=== PATIENT | female | born 1950 | race Caucasian/White ===

== ENCOUNTER → 2019-06-13 | Outpatient (CLI) | payer BC ==
[2019-06-13 15:28] LABS: Basophils % (A) 1 %; Eosinophils # (A) 0.2 k/uL (0-0.7); Eosinophils % (A) 3 %; HCT 41.5 % (34.0-46.0); HGB 12.9 gm/dL (11.4-16.0); Lymphocytes # (A) 1.5 k/uL (1.0-4.8); Lymphocytes % (A) 27 %; MCH 27.3 pg (25.0-35.0); MCHC 31.2 g/dL (31.0-37.0); MCV 87.7 fL (80.0-100.0); Mean Platelet Volume 7.9; Monocytes # (A) 0.2 k/uL (0-1.0); Monocytes % (A) 4 %; Neutrophils # (A) 3.7 k/uL (1.3-7.7); Neutrophils % (A) 64 %; Platelet Count 253 k/uL (150-450); RBC 4.73 m/uL (3.80-5.40); RDW 14.7 % (11.5-15.5); WBC 5.8 k/uL (3.8-10.6)
[2019-06-13 15:36] LABS: Albumin 4.3 g/dL (3.5-5.0); Calcium 9.8 mg/dL (8.4-10.2); Potassium 5.3 mmol/L (3.5-5.1); Total Bilirubin 0.6 mg/dL (0.2-1.3)
== END | disposition home or self-care (01) ==
LOC: LABPAT 14:35
PROVIDERS: ATTEND Surgery
DX: Z01.818 Encounter for other preprocedural examination (principal); Z01.812 Encounter for preprocedural laboratory examination
CPT/HCPCS: 80053; 85025; 93005

== ENCOUNTER → 2019-06-13 | Outpatient (CLI) | payer BC ==
[2019-06-13 16:21] VITALS: BP 166/103; PULSE 81; TEMP 98.1; BMI 27.1
--- NOTE | 2019-06-14 09:05 | P.HPBAR ---
Bariatric H&P - History & Physicial H&P Date: 06/13/19 History & Physicial: Visit/CC: discuss band removal Patient initial contact: Initial weight: 139.253 kg Initial weight in pounds: 307.00 Height: 5 ft 3 in Initial BMI: 54.3 Last weight: Current weight: 69.4 kg Current weight in pounds: 153.00 Current BMI: 27.1 [place] body weight (based on NIH guidelines): 52.163 kg Excess body weight loss: 80.2% The patient is a 68 year-old F who presents for Bariatric Assessment. This is a 68-year-old female who presents today for lab band follow. She's not been seen in 5 years. She's had complaints of some vague abdominal pain and constipation. She underwent EGD by Dr. Castillo in [place]. Patient's found have evidence of gastric band erosion. Patient denies any significant dysphagia. She states she's had [id number]-kud last several months. She denies any significant epigastric abdominal pain today. Past Medical History Past Medical History: Cancer, Osteoarthritis (OA) Additional Past Medical History / Comment(s): Right breast cancer (had mastectomy and chemotherapy Tamoxifen). Osteoporosis. Stenosis of neck and back History of Any Multi-Drug Resistant Organisms: None Reported Past Surgical History: Bariatric Surgery, Orthopedic Surgery Additional Past Surgical History / Comment(s): Lap band placed 2006,. Bilateral knee replacement. Right mastectomy Past Anesthesia/Blood Transfusion Reactions: Postoperative Nausea & Vomiting (PONV) Additional Past Anesthesia/Blood Transfusion Reaction / Comm: has had a reaction to blood transfusion, hives (needed benadryl) Smoking Status: Never smoker Surgical - Exam Vital Signs Temp Pulse BP 98.1 F 81 166/103 06/13/19 15:00 06/13/19 15:00 06/13/19 15:00 - General well developed, well nourished, no distress - Eyes PERRL - ENT normal pinna - Neck no masses - Respiratory normal expansion - Cardiovascular Rhythm: regular - Abdomen Abdomen: soft, non tender Bariatric Assessment & Plan Plan: Lap band erosion. Patient will undergo laparoscopic removal of LAP-BAND system. I discussed the patient the risk of adhesions and the possibility of conversion to the open procedure and injury to the stomach liver or spleen. Bariatric Checklist Checklist: Plan: Checklist: EGD: 1. Hiatal hernia: 2. H. Pylori: HgbA1c: Vitamin D: Smoking: Never smoker Primary care physician referral: Psychiatry clearance: Cardiology clearance: Sleep study: Diet journal: VTE risk score: VTE risk level: Rehab needs at discharge:
== END | disposition home or self-care (01) ==
LOC: BARWHC3 13:37
PROVIDERS: ATTEND Surgery
DX: K95.09 Other complications of gastric band procedure (principal)
CPT/HCPCS: 99211

== ENCOUNTER 2019-06-15 09:15 | Inpatient (IN) | payer BC ==
[2019-06-15] MEDS ORDERED: LACTATED RINGERS 1,000 ML IV ONE ×2 (13:23→18:07)
[2019-06-15] MEDS ORDERED: ONDANSETRON 4 MG/2 ML VIAL IVP ONE ×2 (13:23→21:25)
--- NOTE | 2019-06-15 13:36 | P.GSHP ---
History of Present Illness H&P Date: 06/15/19 Chief Complaint: Erosion of LAP-BAND This is a 68-year-old female who had LAP-BAND surgery many years ago. Patient up and seen in 5 years. Patient underwent recent EGD by Dr. Castillo at [facility]. Patient's found have erosion of her LAP-BAND. Patient presents today for removal of LAP-BAND system. Patient aware the risks of surgery including conversion to the open procedure and injury to the stomach, liver and spleen. She also aware the risk of possible gastric fistula. Past Medical History Past Medical History: Cancer, Osteoarthritis (OA) Additional Past Medical History / Comment(s): Right breast cancer (had mastectomy and chemotherapy Tamoxifen). Osteoporosis. Stenosis of neck and back History of Any Multi-Drug Resistant Organisms: None Reported Past Surgical History: Bariatric Surgery, Orthopedic Surgery Additional Past Surgical History / Comment(s): Lap band placed 2006,. Bilateral knee replacement. Right mastectomy Past Anesthesia/Blood Transfusion Reactions: Postoperative Nausea & Vomiting (PONV) Additional Past Anesthesia/Blood Transfusion Reaction / Comment(s): has had a reaction to blood transfusion, hives (needed benadryl) Smoking Status: Never smoker Medications and Allergies Home Medications Medication Instructions Recorded Confirmed Type Calcium Carbonate/Vitamin D3 1 each PO TID 06/13/19 06/15/19 History [Calcium 600-Vit D3 500 Softgel] traMADol HCL [Ultram] 50 mg PO Q4-6H PRN 06/13/19 06/15/19 History Allergies Allergy/AdvReac Type Severity Reaction Status Date / Time Penicillins Allergy Unknown Verified 06/15/19 12:36 Childhood Surgical - Exam Vital Signs Temp Pulse Resp BP Pulse Ox 98.4 F 73 16 136/60 100 06/15/19 12:50 06/15/19 12:50 06/15/19 12:50 06/15/19 12:50 06/15/19 12:50 - General well developed, well nourished, no distress - Eyes PERRL - ENT normal pinna - Neck no masses - Respiratory normal expansion - Cardiovascular Rhythm: regular - Abdomen Abdomen: soft, non tender Assessment and Plan Assessment: History of LAP-BAND with gastric erosion of LAP-BAND. Patient will undergo removal of LAP-BAND.
[2019-06-15] MEDS ORDERED: DEXAMETHASONE SOD PHOSPHATE 10 MG/ML 1 ML VIAL IV ONE ×2 (13:43→21:25)
[2019-06-15] MEDS ORDERED: SCOPOLAMINE 1.5MG/72HR PATCH TRANSDERM ONE (13:44)
[2019-06-15] MEDS ORDERED: HYDROmorphone 1 MG/ML 1 ML SYRINGE IVP ONE (14:06)
[2019-06-15] MEDS ORDERED: HEPARIN SODIUM,PORCINE 5,000 UNIT/ML 1 ML VIAL SQ ONE (14:40)
[2019-06-15] MEDS ORDERED: HYDROmorphone (PF) 1 MG/ML ONE (16:32)
[2019-06-15] MEDS ORDERED: ONDANSETRON 4 MG/2 ML VIAL ONE (16:32)
[2019-06-15] MEDS ORDERED: NEOSTIGMINE 1 MG/ML 10 ML VIAL ONE (16:32)
[2019-06-15] MEDS ORDERED: MIDAZOLAM 2 MG/2 ML VIAL ONE (16:32)
[2019-06-15] MEDS ORDERED: GLYCOPYRROLATE 0.2 MG/ML 2 ML VIAL ONE (16:32)
[2019-06-15] MEDS ORDERED: SUCCINYLCHOLINE CHLORIDE 100 MG/5 ML SYR IV ONE (16:32)
[2019-06-15] MEDS ORDERED: ROCURONIUM BROMIDE 10 MG/ML 10 ML VIAL IV ONE (16:32)
[2019-06-15] MEDS ORDERED: LIDOCAINE 1% INJ 10MG/ML (20 ML MDV) ONE (16:32)
[2019-06-15] MEDS ORDERED: fentaNYL (PF) 50 MCG/ML 2 ML AMP ONE (16:32)
[2019-06-15] MEDS ORDERED: KETOROLAC 30 MG/ML 1 ML VIAL ONE (16:32)
[2019-06-15] MEDS ORDERED: PROPOFOL 10 MG/ML 20 ML VIAL IV ONE (16:32)
[2019-06-15] MEDS ORDERED: BUPIVACAIN-EPI 0.25%-1:200,000 30 ML VIAL SQ ONE (17:21)
[2019-06-15] MEDS ORDERED: NALOXONE 0.4 MG/ML 1 ML VIAL IV PRN (18:07)
[2019-06-15] MEDS ORDERED: ONDANSETRON 4 MG/2 ML VIAL IVP PRN (18:07)
--- NOTE | 2019-06-15 18:24 | P.OP ---
Date of Procedure: 06/15/19 Preoperative Diagnosis: Gastric band erosion Postoperative Diagnosis: Gastric band erosions Adhesions Procedure(s) Performed: Laparoscopic lysis of adhesions Open removal of gastric band Gastrorrhaphy Anesthesia: CHRISTINE Surgeon: Brian Gore Estimated Blood Loss (ml): 50 Pathology: none sent Condition: stable Disposition: PACU Description of Procedure: The patient's placed on the operating table in supine position. She received general anesthesia. She was then placed in dorsal 5 position. Her abdomen was prepped and draped usual sterile fashion. The skin was incised at the port site and then using blunt and sharp dissection with cautery the LAP-BAND port was dissected free. At this point using a 5 mm optical trocar. Cavity is entered at the LAP-BAND port site the abdomen was insufflated and then a 5 mm trochars placed in the epigastric position the right lateral position the left lateral position and the left periumbilical position. The camera was replaced to the left epigastric port site there were significant adhesions around the stomach. These were lysed using sharp dissection and left cautery. The connecting tube was found in the right lower quadrant. There was adhesive band around the PEG tube and this was attached to the transverse colon. At this point decided to convert this procedure to an open procedure. The trochars withdrawn. The skin was incised in midline and then using cautery the abdominal wall was divided. The Bookwalter placed a wound. The PEG tube was then found. The adhesions located were then lysed. The defect was then followed back to the stomach. At this point using left cautery the dissection around the band was performed. The LAP-BAND device appeared to be eroded entirely into the stomach. The area of erosion was opened with left cautery. LAP-BAND device was withdrawn. The stomach was then repaired using 0 Vicryl suture and 3-0 GI silk suture. The stomach was insufflated with 5 mL of methylene blue normal saline. There is no incision any leak at the gastric repair site. At this point the abdomen was irrigated. There is no bleeding seen. The drain was placed over top of the gastrorrhaphy and brought through separate stab incision in the right lower quadrant. The fascia is closed with looped #1 PDS suture. Skin was closed josie. The previous once this was placed on the stapled incision. Patient was sent to recovery room stable condition.
[2019-06-15] MEDS: HYDROmorphone 1 MG/ML 1 ML SYRINGE IVP ONE ×2 (18:38→18:50)
[2019-06-15] MEDS: fentaNYL (PF) 50 MCG/ML 2 ML AMP IVP ONE ×4 (18:55→19:29)
[2019-06-15] MEDS ORDERED: MIDAZOLAM 2 MG/2 ML VIAL IV PRN (21:25)
[2019-06-15] MEDS ORDERED: HYDROmorphone 0.5 MG/0.5 ML SYRINGE IVP PRN (21:25)
[2019-06-15] MEDS ORDERED: LIDOCAINE 1% 20 ML VIAL (10MG/ML) FOR IV START INTRADERMA PRN (21:25)
[2019-06-15] MEDS ORDERED: fentaNYL (PF) 50 MCG/ML 2 ML AMP IV PRN (21:25)
[2019-06-15] MEDS: KETOROLAC 30 MG/ML 1 ML VIAL IVP SCH ×2 (21:28→23:08)
[2019-06-15] MEDS: FLUCONAZOLE IN NACL,ISO-OSM 200 MG in SALINE 1 100ML.BAG IVPB SCH ×2 (21:28→21:35)
[2019-06-15] MEDS: LACTATED RINGERS 1,000 ML IV SCH ×2 (21:34→21:35)
[2019-06-15] MEDS ORDERED: LEVOFLOXACIN 500MG-D5W PMX 500 MG in DEXTROSE/WATER 1 100ML.BAG IVPB SCH (23:00)
[2019-06-15] MEDS: HYDROmorphone 0.5 MG/0.5 ML SYRINGE IVP PRN (23:47)
[2019-06-16] MEDS: HYDROmorphone 0.5 MG/0.5 ML SYRINGE IVP PRN ×4 (05:19→21:46)
[2019-06-16] MEDS: KETOROLAC 30 MG/ML 1 ML VIAL IVP SCH ×3 (05:20→17:10)
[2019-06-16] MEDS: LACTATED RINGERS 1,000 ML IV SCH ×3 (05:22→21:50)
[2019-06-16 09:00] LABS: Albumin 2.5 g/dL (3.5-5.0); Calcium 8.4 mg/dL (8.4-10.2); Potassium 4.6 mmol/L (3.5-5.1); Total Bilirubin 0.6 mg/dL (0.2-1.3); Total Protein 4.7 g/dL (6.3-8.2)
[2019-06-16 09:21] LABS: Basophils % (A) 0 %; Eosinophils % (A) 0 %; HCT 27.5 % (34.0-46.0); Lymphocytes # (A) 0.6 k/uL (1.0-4.8); Lymphocytes % (A) 7 %; MCH 29.1 pg (25.0-35.0); MCHC 32.4 g/dL (31.0-37.0); MCV 89.9 fL (80.0-100.0); Mean Platelet Volume 8.3; Monocytes # (A) 0.3 k/uL (0-1.0); Monocytes % (A) 3 %; Neutrophils # (A) 7.6 k/uL (1.3-7.7); Neutrophils % (A) 89 %; Platelet Count 201 k/uL (150-450); RBC 3.05 m/uL (3.80-5.40); RDW 15.3 % (11.5-15.5); WBC 8.6 k/uL (3.8-10.6)
[2019-06-16 09:27] LABS: HGB 8.9 gm/dL (11.4-16.0)
[2019-06-16] MEDS: ENOXAPARIN 40 MG/0.4 ML SYRINGE SQ SCH (10:27)
[2019-06-16] MEDS: PANTOPRAZOLE 40 MG/10 ML VIAL IV SCH (10:28)
[2019-06-16] MEDS ORDERED: SODIUM CHLORIDE 0.9% 1,000 ML IV ONE (13:23)
--- NOTE | 2019-06-16 13:47 | P.PN ---
Subjective Progress Note Date: 06/16/19 CHIEF COMPLAINT: gastric band erosion HISTORY OF PRESENT ILLNESS: patient is status post laparoscopic lysis of adhesions, open removal of gastric band, and gastrorrhaphy. POD #1. Patient reports her pain is tolerable. NG to LIS with bilious drainage. Denies nausea. WBC 8.6. Hemoglobin 8.9. vital signs stable. Patient is afebrile. PHYSICAL EXAM: VITAL SIGNS: Reviewed. GENERAL: Well-developed in no acute distress. HEENT: No sclera icterus. Extraocular movements grossly intact. Moist buccal mucosa. Head is atraumatic, normocephalic. ABDOMEN: Soft. Nondistended. PREVENA wound system to midline incision. MELISSA drain with serosanguineous drainage NEUROLOGIC: Alert and oriented. Cranial nerves II through XII grossly intact. ASSESSMENT: 1. Gastric band erosion, status post laparoscopic lysis of adhesions, open removal of gastric band, and gastrorrhaphy PLAN: 1. Continue NG to LIS. Continue NPO. Continue IV fluids. 1L fluid bolus for decreased urine output. 2. Patient to have esophagram completed Thursday morning to rule out leak. If negative, may begin clear liquid diet at that time 3. Pain control 4. Activity as tolerated 5. Incentive spirometry 6. Dr. Wolf consulted for further evaluation Nurse practitioner note has been reviewed by physician. Signing provider agrees with the documented findings, assessment, and plan of care. Objective - Vital Signs Vital signs: Vital Signs Temp 98.5 F 06/16/19 07:16 Pulse 76 06/16/19 07:16 Resp 15 06/16/19 07:16 BP 103/55 06/16/19 07:16 Pulse Ox 97 06/16/19 07:16 Intake & Output 06/15/19 06/16/19 06/16/19 18:59 06:59 18:59 Intake Total 1350 1500 Output Total 30 560 20 Balance 1320 940 -20 Weight 81.42 kg Intake: IV 1350 Intake, IV Titration 1500 Amount Lactated Ringers 1,000 ml 1500 @ 125 mls/hr IV .Q8H [facility] Rx#:[id number] Output: Drainage 160 20 Right Abdomen 160 20 Urine 400 Straight 400 Estimated Blood Loss 30 - Labs CBC & Chem 7: 06/16/19 08:17 06/16/19 08:17 Labs: Abnormal Lab Results - Last 24 Hours (Table) 06/16/19 06/16/19 Range/Units 08:17 08:17 RBC 3.05 L (3.80-5.40) m/uL Hgb 8.9 L D (11.4-16.0) gm/dL Hct 27.5 L (34.0-46.0) % Lymphocytes # 0.6 L (1.0-4.8) k/uL Chloride 108 H (98-107) mmol/L BUN 22 H (7-17) mg/dL Glucose 127 H (74-99) mg/dL AST 43 H (14-36) U/L Total Protein 4.7 L (6.3-8.2) g/dL Albumin 2.5 L (3.5-5.0) g/dL
[2019-06-16] MEDS ORDERED: BENZOCAINE SPRAY 1 CAN MUCOUS MEM PRN (14:21)
[2019-06-16] MEDS: metroNIDAZOLE-NS PMX 500 MG in SALINE 1 100ML.BAG IVPB SCH (18:38)
[2019-06-16] MEDS: FLUCONAZOLE IN NACL,ISO-OSM 200 MG in SALINE 1 100ML.BAG IVPB SCH (21:47)
--- NOTE | 2019-06-16 23:16 | CONS ---
CONSULTATION DATE OF SERVICE: 06/16/2019 REASON FOR CONSULTATION: Advice regarding DVT and other multiple medical issues requested by Dr. Gore. HISTORY OF PRESENT ILLNESS: This 68-year-old woman with a past medical history of DVT, history of DJD, history of right breast cancer, had lap band placement in [address] Gore. The EGD done in [place] showed some gastric lap band erosion and the patient underwent laparoscopic lysis of adhesions, open removal of gastric band and by Dr. Gore. The patient is being closely monitored. There is no history of chest pain. No palpitations. No headache, loss of consciousness or seizures, nausea and diarrhea at this time. PAST MEDICAL HISTORY: DVT, history of DJD, history of right breast cancer, osteoporosis, history of bariatric surgery, history of DJD. MEDICATIONS: Prior to admission, home medications are: 1. Ultram 50 mg q.4 p.r.n. 2. Calcium carbonate 1 p.o. t.i.d. ALLERGIES: PENICILLIN. FAMILY HISTORY: No history of heart disease or strokes in the family. SOCIAL HISTORY: No history of smoking. No history of alcohol intake. REVIEW OF SYSTEMS: ENT: No diminished hearing. No diminished vision. CARDIOVASCULAR: No angina or palpitations. RESPIRATORY: As mentioned earlier. GI as mentioned earlier. no dysuria or hematuria. NERVOUS SYSTEM: No numbness or weakness. ALLERGY/IMMUNOLOGY: No history of asthma or hayfever. MUSCULOSKELETAL: As mentioned earlier. HEMATOLOGY/ONCOLOGY: No history of anemia. ENDOCRINE: No history of diabetes or hypothyroidism. CONSTITUTIONAL: As mentioned earlier. DERMATOLOGY: Negative. RHEUMATOLOGY: Negative. PSYCHIATRIC: As mentioned earlier. PHYSICAL EXAM: Patient is alert and oriented times three. Pulse 88, blood pressure 105/60, respirations 20, temperature 98.1, pulse ox 97% on room air. HEENT: Conjunctivae normal. Oral mucosa moist. NECK is no jugular venous distention. No carotid bruit. No lymph node enlargement. CARDIOVASCULAR: S1, S2 muffled. RESPIRATIONS: Breath sounds diminished in the bases. No rhonchi. No crackles. ABDOMEN: Soft. Status post surgery. LEGS: No edema. No swelling. NERVOUS SYSTEM: Higher functions as mentioned earlier. Moves all 4 limbs. No focal motor or sensory deficits. LYMPHATICS: No lymph nodes palpable in the neck, axillae or groin. SKIN: No ulcer, no rashes and no bleeding. JOINTS: No active deforming arthropathy. LABS: WBC 8.6, hemoglobin is 8.9, sodium 136, potassium 4.6 and AST is 43. Albumin is 2.5. ASSESSMENT: 1. Status post laparoscopic lysis of adhesions, open removal of gastric band and gastrography for gastric lap band erosions. 2. Anemia, normocytic possibly anemia of chronic disease. 3. History of deep vein thrombosis. 4. History of degenerative joint disease. 5. History of right breast cancer with mastectomy and chemotherapy. 6. History of osteoporosis. 7. Neck and back stenosis. 8. History of deep vein thrombosis. 9. History of bariatric surgery, lap band placement 2006. 10.FULL CODE. RECOMMENDATIONS AND DISCUSSION: This 68-year-old woman presented after surgery. At this time, I recommend to continue current medications, symptomatic treatment. I recommend DVT prophylaxis and I would also recommend repeat labs. Resume the home medications. Incentive spirometry. Proton pump inhibitors. We will follow the patient closely with you. Thank you Dr. Gore for letting us participate in the care of this patient. MMODL / DARRINN: [id number] / MTDD
[2019-06-17] MEDS: metroNIDAZOLE-NS PMX 500 MG in SALINE 1 100ML.BAG IVPB SCH ×4 (00:01→23:16)
[2019-06-17] MEDS: KETOROLAC 30 MG/ML 1 ML VIAL IVP SCH ×4 (00:02→15:42)
[2019-06-17] MEDS: LACTATED RINGERS 1,000 ML IV SCH ×5 (00:02→22:11)
[2019-06-17] MEDS: HYDROmorphone 0.5 MG/0.5 ML SYRINGE IVP PRN ×2 (01:26→04:15)
--- NOTE | 2019-06-17 07:24 | P.CONS ---
History of Present Illness - Reason for Consult Consult date: 06/16/19 Gastric band erosion and antibiotic recommendation Requesting physician: Brian Gore - Chief Complaint Abdominal pain times few weeks - History of Present Illness Patient is a 68-year-old female with past medical history significant for gastric band surgery a few years ago the patient started having a problem with pain mostly in the epigastric area more of a dull aching pain that seems to have gradually increased in intensity to be almost 6-7 out of 10 with no radiation some associated nausea but no vomiting no diarrhea or any fever patient has been evaluated outpatient setting and did have an EGD which she was noticed to have a gastric band erosion subsequently the patient has been referred to Dr. Martinez patient was taken to the OR the patient is status post lysis of adhesion, removal of the gastric band and gastric repair, the patient has been started on Diflucan and Levaquin because of her penicillin ALLERGY which is a childhood reaction infectious disease was consulted for further recommendation regarding antibiotic, the patient is currently afebrile, her white count has been normal, patient to be complaining of mostly post operative pain dull aching to sharp 4-5 out of 10 and no radiation with some improvement with the pain medication has been receiving Review of Systems Positive points has been mentioned in HPI rest of the systems are negative Past Medical History Past Medical History: Cancer, Deep Vein Thrombosis (DVT), Osteoarthritis (OA) Additional Past Medical History / Comment(s): Right breast cancer (had mastectomy and chemotherapy Tamoxifen). Osteoporosis. Stenosis of neck and back. dvt 1989 History of Any Multi-Drug Resistant Organisms: None Reported Past Surgical History: Bariatric Surgery, Orthopedic Surgery Additional Past Surgical History / Comment(s): Lap band placed 2006,. Bilateral knee replacement. Right mastectomy. lap band removal 06/15/2019 Past Anesthesia/Blood Transfusion Reactions: Postoperative Nausea & Vomiting (PONV) Additional Past Anesthesia/Blood Transfusion Reaction / Comm: has had a reaction to blood transfusion, hives (needed benadryl) Past Psychological History: No Psychological Hx Reported Smoking Status: Never smoker Past Alcohol Use History: Rare Past Drug Use History: None Reported Medications and Allergies Home Medications Medication Instructions Recorded Confirmed Type Calcium Carbonate/Vitamin D3 1 cap PO TID 06/13/19 06/15/19 History [Calcium 600-Vit D3 500 Softgel] traMADol HCL [Ultram] 50 mg PO Q4-6H PRN 06/13/19 06/15/19 History Allergies Allergy/AdvReac Type Severity Reaction Status Date / Time Penicillins Allergy Unknown Verified 06/15/19 16:20 Childhood Physical Exam Vitals: Vital Signs Temp Pulse Resp BP Pulse Ox 06/16/19 15:02 98.2 F 78 15 103/73 91 L 06/16/19 07:16 98.5 F 76 15 103/55 97 06/16/19 05:15 82 104/67 96 06/16/19 03:08 18 06/16/19 01:05 98.1 F 88 18 93/59 97 06/15/19 23:38 108/73 06/15/19 23:25 18 06/15/19 23:00 95 16 98/54 99 06/15/19 21:30 67 18 93/59 100 06/15/19 21:15 89 18 97/61 100 06/15/19 21:00 84 18 96/63 100 06/15/19 20:45 84 18 96/61 100 06/15/19 20:30 67 18 100/63 100 06/15/19 20:16 72 18 119/60 06/15/19 20:01 71 18 129/60 06/15/19 19:46 72 18 133/73 96 06/15/19 19:31 61 20 143/64 100 06/15/19 19:15 76 20 128/58 100 06/15/19 19:01 51 L 20 125/58 100 06/15/19 18:45 63 64 H 129/61 100 06/15/19 18:41 63 64 H 136/62 100 06/15/19 18:26 97.6 F 64 64 H 139/63 100 Intake and Output 06/16/19 06/16/19 06/16/19 06:59 14:59 22:59 Intake Total 1125 Output Total 520 110 100 Balance 605 -110 -100 Intake: Intake, IV Titration 1125 Amount Lactated Ringers 1,000 ml 1125 @ 125 mls/hr IV .Q8H [facility] Rx#:[id number] Output: Drainage 120 110 Right Abdomen 120 110 Urine 400 100 Straight 400 Other: Voiding Method Toilet GENERAL DESCRIPTION: An elderly female lying in bed, no distress. No tachypnea or accessory muscle of respiration use. HEENT: Shows Pallor , no scleral icterus. Oral mucous membrane is dry. No pharyngeal erythema or thrush NECK: Trachea central, no thyromegaly. LUNGS: Unlabored breathing. Clear to auscultation anteriorly. No wheeze or crackle. HEART: S1, S2, regular rate and rhythm. No loud murmur ABDOMEN: Soft, mild epigastric tenderness ,no guarding or rigidity, no organomegaly EXTREMITIES: No edema of feet. SKIN: No rash, no masses palpable. NEUROLOGICAL: The patient is awake, alert, oriented x3, mood and affect normal. Results CBC & Chem 7: 06/16/19 08:17 06/16/19 08:17 Labs: Abnormal Lab Results - Last 24 Hours (Table) 06/16/19 06/16/19 Range/Units 08:17 08:17 RBC 3.05 L (3.80-5.40) m/uL Hgb 8.9 L D (11.4-16.0) gm/dL Hct 27.5 L (34.0-46.0) % Lymphocytes # 0.6 L (1.0-4.8) k/uL Chloride 108 H (98-107) mmol/L BUN 22 H (7-17) mg/dL Glucose 127 H (74-99) mg/dL AST 43 H (14-36) U/L Total Protein 4.7 L (6.3-8.2) g/dL Albumin 2.5 L (3.5-5.0) g/dL Assessment and Plan Assessment: 1-patient with gastric band erosion with concern for possible chemical peritonitis from leakage of the gastric content underlying bacterial peritonitis less likely but not entirely excluded in this patient currently with no fever or elevated white count 2-patient with penicillin ALLERGY that will limit the number of antibiotic safety use, however describing the ALLERGY to be childhood and may have taken amoxicillin without any problem clinically doubt true penicillin ALLERGY Plan: 1-discontinue the Levaquin 2-start the patient on Rocephin 2 g daily and IV Flagyl 500 every 8 hours 3-Diflucan 200 mg IV daily we will follow on clinical condition and culture to further adjust medication if needed Thank you for this consultation will follow this patient along with you Time with Patient: Greater than 30
[2019-06-17] MEDS: PANTOPRAZOLE 40 MG/10 ML VIAL IV SCH (07:34)
[2019-06-17] MEDS: ENOXAPARIN 40 MG/0.4 ML SYRINGE SQ SCH (07:35)
[2019-06-17 08:10] LABS: Basophils % (A) 0 %; Eosinophils % (A) 0 %; HCT 21.2 % (34.0-46.0); Hypochromasia Slight; Lymphocytes # (A) 0.5 k/uL (1.0-4.8); Lymphocytes % (A) 11 %; MCH 27.7 pg (25.0-35.0); MCHC 30.8 g/dL (31.0-37.0); MCV 89.7 fL (80.0-100.0); Mean Platelet Volume 7.8; Monocytes # (A) 0.1 k/uL (0-1.0); Monocytes % (A) 3 %; Neutrophils # (A) 3.7 k/uL (1.3-7.7); Neutrophils % (A) 84 %; Platelet Count 127 k/uL (150-450); RBC 2.36 m/uL (3.80-5.40); RDW 15.2 % (11.5-15.5); WBC 4.3 k/uL (3.8-10.6)
[2019-06-17 08:35] LABS: HGB 6.5 gm/dL (11.4-16.0)
[2019-06-17 08:37] LABS: ALT 42 U/L (9-52); AST 23 U/L (14-36); African American GFR (CKD) >90 (>60 ml/min/1.73 sqM); Albumin 1.9 g/dL (3.5-5.0); Alkaline Phosphatase 43 U/L (38-126); Anion Gap 8 mmol/L; Blood Urea Nitrogen 18 mg/dL (7-17); Calcium 7.1 mg/dL (8.4-10.2); Carbon Dioxide 19 mmol/L (22-30); Chloride 113 mmol/L (98-107); Glucose 66 mg/dL (74-99); Potassium 3.5 mmol/L (3.5-5.1); Sodium 140 mmol/L (137-145); Total Bilirubin 0.4 mg/dL (0.2-1.3); Total Protein 3.8 g/dL (6.3-8.2)
[2019-06-17] MEDS: HYDROmorphone 1 MG/ML 1 ML SYRINGE IVP PRN ×4 (08:58→23:16)
--- NOTE | 2019-06-17 12:44 | P.PN ---
<HowardPrema Foster - Last Filed: 06/17/19 12:40> Subjective Progress Note Date: 06/17/19 CHIEF COMPLAINT: gastric band erosion HISTORY OF PRESENT ILLNESS: Patient is status post laparoscopic lysis of adhesions, open removal of gastric band, and gastrorrhaphy. POD #2. Patient repo rts mildly increased abdominal pain this morning. NG to LIS with bilious drainage. Denies nausea. vital signs stable. Patient is afebrile. Hemoglobin 6.5, down from 8.9 yesterday. Nursing reports 300cc drainage overnight from MELISSA. PHYSICAL EXAM: VITAL SIGNS: Reviewed. GENERAL: Well-developed in no acute distress. HEENT: No sclera icterus. Extraocular movements grossly intact. Moist buccal mucosa. Head is atraumatic, normocephalic. ABDOMEN: Soft. Nondistended. PREVENA wound system to midline incision. MELISSA drain with sanguineous drainage NEUROLOGIC: Alert and oriented. Cranial nerves II through XII grossly intact. ASSESSMENT: 1. Gastric band erosion, status post laparoscopic lysis of adhesions, open removal of gastric band, and gastrorrhaphy 2. Acute blood loss anemia, an unexpected but potential outcome of surgery PLAN: 1. Continue NG to LIS. Continue NPO. 2. Patient to have esophagram completed Thursday morning to rule out leak. If negative, may begin clear liquid diet at that time 3. Pain control. Increase Dilaudid to 1mg 4. Activity as tolerated 5. Incentive spirometry 6. Dr. Wolf consulted for further evaluation 7. Monitor MELISSA drain output 8. 1 unit RBC transfusion. daily hemoglobin 9. Discontinue Lovenox. SCDs for DVT prophylaxis Nurse practitioner note has been reviewed by physician. Signing provider agrees with the documented findings, assessment, and plan of care. Objective - Vital Signs Vital signs: Vital Signs Temp 98.6 F 06/17/19 08:02 Pulse 86 06/17/19 08:02 Resp 16 06/17/19 08:02 BP 118/71 06/17/19 08:02 Pulse Ox 96 06/17/19 08:02 Intake & Output 06/16/19 06/17/19 06/17/19 18:59 06:59 18:59 Intake Total 1800 Output Total 280 230 80 Balance -280 1570 -80 Intake: Intake, IV Titration 1800 Amount Fluconazole in NaCl,Iso- 100 Osm 200 mg In Saline 1 100ml.bag @ 100 mls/hr IVPB Q24H [facility] Rx#: [id number] Lactated Ringers 1,000 ml 1500 @ 125 mls/hr IV .Q8H [facility] Rx#:[id number] metroNIDAZOLE-NS PMX 500 200 mg In Saline 1 100ml.bag @ 100 mls/hr IVPB Q8HR [facility] Rx#:[id number] Output: Drainage 180 230 80 Right Abdomen 180 230 80 Urine 100 Other: Voiding Method Toilet Toilet Toilet # Voids 2 - Labs CBC & Chem 7: 06/17/19 07:53 06/17/19 07:53 Labs: Abnormal Lab Results - Last 24 Hours (Table) 06/17/19 06/17/19 06/17/19 Range/Units 07:53 07:53 09:36 RBC 2.36 L (3.80-5.40) m/uL Hgb 6.5 L* D (11.4-16.0) gm/dL Hct 21.2 L (34.0-46.0) % MCHC 30.8 L (31.0-37.0) g/dL Plt Count 127 L (150-450) k/uL Lymphocytes # 0.5 L (1.0-4.8) k/uL Chloride 113 H (98-107) mmol/L Carbon Dioxide 19 L (22-30) mmol/L BUN 18 H (7-17) mg/dL Glucose 66 L (74-99) mg/dL Calcium 7.1 L (8.4-10.2) mg/dL Total Protein 3.8 L (6.3-8.2) g/dL Albumin 1.9 L (3.5-5.0) g/dL Crossmatch See Detail <Willie Ash - Last Filed: 06/17/19 16:32> Subjective As above. Patient was doing better this morning. She did have a moderate amount of drainage from her MELISSA drain last night however today the volume was only 20 mL over the last 6 hours or so per the nursing staff. Hemoglobin did drop significantly. Blood has been ordered. Unfortunately the patient lost her IV. That led to increased abdominal discomfort given the duration without pain medications. No nausea or vomiting. Nasogastric tube is bilious. Going for PICC line at this time. Agree with holding Lovenox for now. Objective - Vital Signs Vital signs: Vital Signs Temp 98.5 F 06/17/19 16:27 Pulse 98 06/17/19 16:27 Resp 16 06/17/19 16:27 BP 123/68 06/17/19 16:27 Pulse Ox 98 06/17/19 16:27 Intake & Output 06/16/19 06/17/19 06/17/19 18:59 06:59 18:59 Intake Total 1800 0 Output Total 280 230 120 Balance -280 1570 -120 Intake: Intake, IV Titration 1800 Amount Fluconazole in NaCl,Iso- 100 Osm 200 mg In Saline 1 100ml.bag @ 100 mls/hr IVPB Q24H [facility] Rx#: [id number] Lactated Ringers 1,000 ml 1500 @ 125 mls/hr IV .Q8H [facility] Rx#:[id number] metroNIDAZOLE-NS PMX 500 200 mg In Saline 1 100ml.bag @ 100 mls/hr IVPB Q8HR [facility] Rx#:[id number] Blood Product 0 Rc Pheresis 2 As3 Unit 0 [id number] Output: Drainage 180 230 120 Right Abdomen 180 230 120 Urine 100 Other: Voiding Method Toilet Toilet Toilet # Voids 2 3 - Labs CBC & Chem 7: 06/17/19 07:53 06/17/19 07:53 Labs: Abnormal Lab Results - Last 24 Hours (Table) 06/17/19 06/17/19 06/17/19 Range/Units 07:53 07:53 09:36 RBC 2.36 L (3.80-5.40) m/uL Hgb 6.5 L* D (11.4-16.0) gm/dL Hct 21.2 L (34.0-46.0) % MCHC 30.8 L (31.0-37.0) g/dL Plt Count 127 L (150-450) k/uL Lymphocytes # 0.5 L (1.0-4.8) k/uL Chloride 113 H (98-107) mmol/L Carbon Dioxide 19 L (22-30) mmol/L BUN 18 H (7-17) mg/dL Glucose 66 L (74-99) mg/dL Calcium 7.1 L (8.4-10.2) mg/dL Total Protein 3.8 L (6.3-8.2) g/dL Albumin 1.9 L (3.5-5.0) g/dL Crossmatch See Detail
[2019-06-17] MEDS ORDERED: HYDROmorphone 1 MG/ML 1 ML SYRINGE IM STA (14:19)
[2019-06-17] MEDS ORDERED: LIDOCAINE 1% INJ 10MG/ML (20 ML MDV) ONE (15:05)
[2019-06-17] MEDS ORDERED: LIDOCAINE 1% INJ 10MG/ML (20 ML MDV) SQ ONE (15:12)
[2019-06-17] MEDS ORDERED: FUROSEMIDE 10 MG/ML 2 ML VIAL IV ONE (15:15)
[2019-06-17] MEDS ORDERED: IPRATROPIUM-ALBUTEROL 3 ML NEB INHALATION PRN (16:21)
--- NOTE | 2019-06-17 16:24 | XR ---
EXAMINATION TYPE: XR chest 1V portable DATE OF EXAM: 06/17/2019 HISTORY: PICC line placement COMPARISON: None. TECHNIQUE: Single view of the chest is submitted. FINDINGS: Demonstrated are scattered senescent parenchymal change. Left-sided PICC line demonstrates its dista l tip overlying the SVC. No evidence for pneumothorax. NG tube is seen coursing into the stomach. There is no evidence for focal infiltrate. The heart is stable. Hilar and mediastinal structures are within normal limits. Degenerative changes are seen of the dorsal spine. Midline skin josie with surgical drain left uppe r quadrant and a pneumoperitoneum postoperative in nature. IMPRESSION: 1. Chronic changes without evidence for acute pulmonary disease.
--- NOTE | 2019-06-17 16:54 | PN ---
PROGRESS NOTE DATE OF SERVICE: 06/17/2019. This 68-year-old woman was admitted after laparoscopic lysis of adhesions and removal of gastric band, gastrography. The patient is being closely monitored. Patient has NG tube in situ. No chest pain. No palpitations. No fever. The patient's hemoglobin dropped to 6.5. One unit of transfusion has been arranged at this time. The patient also complaining of cough at this time. PAST MEDICAL HISTORY: Reviewed. REVIEW OF SYSTEMS: CARDIOVASCULAR SYSTEM: No angina. Respiration: As mentioned earlier. GI: As mentioned earlier. Genitourinary: No dysuria or hematuria. Central nervous system: No focal deficits. CURRENT MEDICATIONS: 1. Lidocaine spray. 2. Rocephin 2 g IV daily. 3. Fluconazole. 4. Dilaudid. 5. Lactate Ringer. 6. Xylocaine. 7. Flagyl. 8. Zofran. 9. Protonix. PHYSICAL EXAM: Alert and oriented times three. Pulse 86, blood pressure 118/70, respirations 16, temperature 98.6, pulse ox 98% on room air. HEENT: Conjunctivae normal. NECK: No jugular venous distention. CARDIOVASCULAR: S1, S2 muffled. RESPIRATORY: Breath sounds diminished in the bases. A few scattered rhonchi and crackles. ABDOMEN: Soft. Status post surgery. LEGS: No edema, no swelling. NERVOUS SYSTEM: Higher functions as mentioned earlier. Moves all 4 limbs. No focal motor or sensory deficits. LYMPHATICS: No lymph nodes palpable in the neck, axillae or groin. SKIN: No ulcer, rashes or bleeding. JOINTS: No active deforming arthropathy. ASSESSMENT: 1. Status post laparoscopic lysis of adhesions, removal of gastric band and gastrography with gastric lap band erosion. 2. Anemia normocytic, possible anemia of chronic disease. Anemia transfusion of undetermined etiology. 3. Possible chemical peritonitis from the leakage of gastric contents. 4. Cough for evaluation, rule out bronchitis or atelectasis present. RECOMMENDATIONS AND DISCUSSION: This 68-year-old woman who presented with multiple complex medical issues, at this time, I recommend to continue current medications, management and symptomatic treatment. I recommend 1 unit transfusion with Lasix 20 after the transfusion and I would also recommend baseline chest x-ray. Repeat labs. We will follow the patient closely with you and further recommendations to follow. Thank you Dr. Gore. MMODL / IJN: [id number] / MTDD
--- NOTE | 2019-06-17 19:33 | PN ---
PROGRESS NOTE DATE OF SERVICE: 06/17/2019. REASON FOR FOLLOWUP: peritonitis with gastric band perforation. INTERVAL HISTORY: The patient is currently afebrile. She has been complaining of pain in the abdominal area do respond to the pain medications though. She still has the NG in and has foul smelling gas. No chest pain, shortness of breath, or any cough. PHYSICAL EXAMINATION: Her blood pressure is 118/71 with a pulse of 83, temperature 98.6. She is 96% on room air. General description is an elderly female, lying in bed in no distress. Respiratory system: Unlabored breathing. Clear to auscultation anteriorly. Heart is S1, S2. Regular rate and rhythm. Abdomen soft, no tenderness. LABS: Hemoglobin 6.5, white count 4.3 with a BUN of 18, creatinine 0.78. DIAGNOSTIC IMPRESSION AND PLAN: 1. Patient with gastric band perforation, status post laparotomy and removal of the gastric band. The patient did have a PENICILLIN ALLERGY. Patient is currently covered with Rocephin, Flagyl and Diflucan to continue. 2. Patient with hemoglobin 6.4, being managed by Surgery. Blood transfusion has been ordered. Will monitor hemoglobin closely. 3. Continue supportive care. MMODL / IJN: [id number] /
[2019-06-17] MEDS: IPRATROPIUM-ALBUTEROL 3 ML NEB INHALATION SCH (19:48)
[2019-06-17] MEDS: FLUCONAZOLE IN NACL,ISO-OSM 200 MG in SALINE 1 100ML.BAG IVPB SCH (19:59)
[2019-06-17 21:15] LABS: HCT 27.7 % (34.0-46.0); Hypochromasia Slight; MCH 28.6 pg (25.0-35.0); MCHC 31.9 g/dL (31.0-37.0); MCV 89.9 fL (80.0-100.0); Mean Platelet Volume 8.1; Platelet Count 141 k/uL (150-450); RBC 3.08 m/uL (3.80-5.40); RDW 14.8 % (11.5-15.5); WBC 5.3 k/uL (3.8-10.6)
[2019-06-17 21:26] LABS: Partial Thromboplastin Time 24.8 sec (22.0-30.0); Prothrombin Time 10.4 sec (9.0-12.0)
[2019-06-17 21:27] LABS: HGB 8.8 gm/dL (11.4-16.0)
[2019-06-18] MEDS: HYDROmorphone 1 MG/ML 1 ML SYRINGE IVP PRN ×5 (03:41→21:41)
[2019-06-18] MEDS: LACTATED RINGERS 1,000 ML IV SCH ×3 (06:16→22:08)
[2019-06-18] MEDS: IPRATROPIUM-ALBUTEROL 3 ML NEB INHALATION SCH ×4 (07:51→20:09)
[2019-06-18 08:35] LABS: HCT 25.5 % (34.0-46.0); HGB 8.5 gm/dL (11.4-16.0); MCHC 33.3 g/dL (31.0-37.0); MCV 90.2 fL (80.0-100.0); Platelet Count 149 k/uL (150-450); RBC 2.83 m/uL (3.80-5.40); RDW 15.4 % (11.5-15.5); WBC 4.7 k/uL (3.8-10.6)
[2019-06-18] MEDS: metroNIDAZOLE-NS PMX 500 MG in SALINE 1 100ML.BAG IVPB SCH ×2 (09:45→16:11)
[2019-06-18] MEDS: PANTOPRAZOLE 40 MG/10 ML VIAL IV SCH (09:46)
--- NOTE | 2019-06-18 10:30 | P.PN ---
Subjective Progress Note Date: 06/18/19 Principal diagnosis: Lap band erosion Patient doing much better today. PICC line was placed yesterday. T-max 100.5. Still mildly tachycardic at times. Hemoglobin came up nicely after 1 unit 28.8. Today hemoglobin is 8.5. MELISSA drain now serous. Nasogastric tube remains bilio us. Pain is well-controlled. She is sitting up in the chair currently. Objective - Vital Signs Vital signs: Vital Signs Temp 99.3 F 06/18/19 05:30 Pulse 111 H 06/18/19 00:54 Resp 18 06/18/19 04:00 BP 119/61 06/18/19 00:54 Pulse Ox 99 06/18/19 00:54 Intake & Output 06/17/19 06/18/19 06/18/19 18:59 06:59 18:59 Intake Total 310 1100 Output Total 120 405 40 Balance 190 695 -40 Intake: Intake, IV Titration 1100 Amount Fluconazole in NaCl,Iso- 100 Osm 200 mg In Saline 1 100ml.bag @ 100 mls/hr IVPB Q24H JADA Rx#: [id number] Lactated Ringers 1,000 ml 1000 @ 125 mls/hr IV .Q8H JADA Rx#:[id number] Blood Product 310 Rc Pheresis 2 As3 Unit 310 [id number] Output: Drainage 120 55 40 Right Abdomen 120 55 40 Urine 350 Other: Voiding Method Toilet Toilet # Voids 3 1 - Exam Abdomen: Soft, mild tenderness, dressing clean and dry, MELISSA serous - Labs CBC & Chem 7: 06/18/19 07:39 06/17/19 07:53 Labs: Abnormal Lab Results - Last 24 Hours (Table) 06/17/19 06/17/19 06/18/19 Range/Units 09:36 20:58 07:39 RBC 3.08 L 2.83 L (3.80-5.40) m/uL Hgb 8.8 L D 8.5 L (11.4-16.0) gm/dL Hct 27.7 L 25.5 L (34.0-46.0) % Plt Count 141 L 149 L (150-450) k/uL Crossmatch See Detail Assessment and Plan (1) Complication of gastric band procedure Narrative/Plan: Patient overall doing much better today. She states it is been 1 week since she has eaten. We'll begin TPN at this time. Add Toradol for pain control. Resume anticoagulation. Ambulate. Plans for upper GI tomorrow. Possible discontinue nasogastric tube following that. Current Visit: Yes Status: Acute Code(s): K95.09 - OTHER COMPLICATIONS OF GASTRIC BAND PROCEDURE SNOMED Code(s): 055975946709012
[2019-06-18] MEDS: KETOROLAC 30 MG/ML 1 ML VIAL IVP SCH ×2 (11:40→18:32)
--- NOTE | 2019-06-18 13:04 | XR ---
EXAMINATION TYPE: XR chest 1V portable DATE OF EXAM: 06/18/2019 HISTORY: congestion. REFERENCE: Previous study dated 06/17/2019. FINDINGS: An NG tube has been placed. Its tip is in the stomach. A left basilic PICC line is in place . Its tip is in the superior vena cava. There is bibasilar atelectasis. There are small effusions. There is been a previous right axillary di ssection. Heart size is within normal limits. IMPRESSION: 1. BIBASILAR ATELECTASIS. 2. SMALL, BILATERAL EFFUSIONS.
[2019-06-18] MEDS ORDERED: FUROSEMIDE 10 MG/ML 2 ML VIAL IV ONE (14:45)
[2019-06-18 15:59] LABS: African American GFR (CKD) >90 (>60 ml/min/1.73 sqM); Anion Gap 9 mmol/L; Blood Urea Nitrogen 18 mg/dL (7-17); Calcium 8.2 mg/dL (8.4-10.2); Carbon Dioxide 21 mmol/L (22-30); Chloride 111 mmol/L (98-107); Glucose 67 mg/dL (74-99); Magnesium 1.7 mg/dL (1.6-2.3); Phosphorus 2.7 mg/dL (2.5-4.5); Potassium 3.9 mmol/L (3.5-5.1); Sodium 141 mmol/L (137-145)
[2019-06-18] MEDS ORDERED: MVI, ADULT NO.4 WITH VIT K 10 ML, TRACE (CONC-1ML/DOSE) 1 ML in AMINO ACID 4.25%-D10W+L... IV SCH ×3 (17:30)
--- NOTE | 2019-06-18 21:21 | PN ---
PROGRESS NOTE DATE OF SERVICE: 06/18/2019. This 68-year-old woman was admitted with laparoscopic lysis of adhesions, removal of gastric band and gastrography is being closely monitored at this time. The patient had some shortness of breath. Otherwise some mild fever is noted. Mild tachycardia is also noted. A chest x-ray which was done today which was evaluated personally by me showed no evidence of atelectasis. PAST MEDICAL HISTORY: Reviewed. REVIEW OF SYSTEMS: Cardiovascular: No angina. No palpitations. RESPIRATORY: As mentioned earlier. GI as mentioned earlier. no dysuria or hematuria. CENTRAL NERVOUS SYSTEM: No numbness or weakness. MEDICATIONS: Current medications are reviewed and include: 1. DuoNeb q.i.d. and p.r.n. 2. Hurricane spray. 3. Rocephin 2 g IV daily. 4. TPN. 5. Dilaudid. 6. Toradol. 7. Narcan. 8. Zofran. 9. Protonix. PHYSICAL EXAM: Patient is alert, oriented x3. Pulse 78, blood pressure 142/61, respiration 16, temperature 98.1, pulse ox 94% on room air. HEENT: Conjunctivae normal. NECK: No jugular venous distention. CARDIOVASCULAR: S1, S2 muffled. RESPIRATORY: Breath sounds diminished in the bases. Scattered rhonchi and crackles. ABDOMEN: Soft, nontender. No mass palpable. LEGS no edema. No swelling. NERVOUS SYSTEM: No focal deficits. LAB STUDIES: WBC 4.2, hemoglobin is 8.4, sodium 141, potassium 3.9 and glucose 67 and calcium is 8.2. ASSESSMENT: 1. Status post laparoscopic lysis of adhesions, removal of gastric band and gastrography with gastric lap band erosion. 2. Anemia, normocytic possibly anemia of chronic disease. 3. Possible chemical peritonitis from leakage from gastric contents. 4. Atelectasis as expected. 5. Cough, improved. 6. Hypoalbuminemia. RECOMMENDATIONS AND DISCUSSION: This 68-year-old woman who presented with multiple medical issues, at this time I recommend to continue current medications, management and symptomatic treatment. Otherwise, at this time, I would recommend continue the antibiotics, bronchodilators. A small dose of Lasix. Otherwise, repeat labs. Otherwise, guarded prognosis. Further recommendations to follow. TPN. MMODL / IJN: [id number] /
[2019-06-18] MEDS: HEPARIN SODIUM,PORCINE 5,000 UNIT/ML 1 ML VIAL SQ SCH (21:39)
[2019-06-18] MEDS: FLUCONAZOLE IN NACL,ISO-OSM 200 MG in SALINE 1 100ML.BAG IVPB SCH (21:46)
[2019-06-18] MEDS: 1: MVI, ADULT NO.4 WITH VIT K 10 ML, TRACE (CONC-1ML/DOSE) 1 ML in AMINO ACID 4.25%-D10W IV SCH ×3 (22:04)
[2019-06-19] MEDS: KETOROLAC 30 MG/ML 1 ML VIAL IVP SCH ×4 (01:02→19:54)
[2019-06-19] MEDS: metroNIDAZOLE-NS PMX 500 MG in SALINE 1 100ML.BAG IVPB SCH ×3 (01:05→19:53)
[2019-06-19] MEDS: INSULIN ASPART (NovoLOG) 100 UNIT/ML VIAL SQ SCH ×4 (01:14→19:53)
[2019-06-19 01:22] LABS: Glucose,Whole Blood 114 mg/dL (75-99)
[2019-06-19] MEDS: HYDROmorphone 1 MG/ML 1 ML SYRINGE IVP PRN ×4 (03:36→20:58)
--- NOTE | 2019-06-19 04:27 | XR ---
EXAM: XR Chest, 1 View CLINICAL HISTORY: ITS.REASON XR Reason: NG tube placement TECHNIQUE: Frontal view of the chest. COMPARISON: 06/18/19 IMPRESSION: NG tube tip terminates in the distal stomach.
[2019-06-19 06:09] LABS: Glucose,Whole Blood 164 mg/dL (75-99)
--- NOTE | 2019-06-19 08:10 | P.PN ---
Subjective Progress Note Date: 06/19/19 Principal diagnosis: Lap band erosion Patient did well last night. Her pain was better controlled. T-max 100. Morning labs are pending. Nasogastric tube remains bilious. MELISSA drain remains serous. She is going for esophagram/upper GI this morning. Objective - Vital Signs Vital signs: Vital Signs Temp 98.5 F 06/19/19 01:08 Pulse 86 06/19/19 01:08 Resp 16 06/19/19 04:00 BP 145/73 06/19/19 01:08 Pulse Ox 95 06/19/19 01:08 Intake & Output 06/18/19 06/19/19 06/19/19 18:59 06:59 18:59 Output Total 260 225 Balance -260 -225 Weight 81.42 kg Output: Drainage 60 50 Abdomen 20 50 Right Abdomen 40 Urine 200 Oral Regurgitation 175 Other: Voiding Method Toilet - Exam Abdomen: Soft, nondistended, mild tenderness, dressing clean and dry - Labs CBC & Chem 7: 06/18/19 07:39 06/18/19 15:33 Labs: Abnormal Lab Results - Last 24 Hours (Table) 06/18/19 06/18/19 06/19/19 Range/Units 07:39 15:33 01:12 RBC 2.83 L (3.80-5.40) m/uL Hgb 8.5 L (11.4-16.0) gm/dL Hct 25.5 L (34.0-46.0) % Plt Count 149 L (150-450) k/uL Chloride 111 H (98-107) mmol/L Carbon Dioxide 21 L (22-30) mmol/L BUN 18 H (7-17) mg/dL Glucose 67 L (74-99) mg/dL POC Glucose (mg/dL) 114 H (75-99) mg/dL Calcium 8.2 L (8.4-10.2) mg/dL 06/19/19 Range/Units 06:00 RBC (3.80-5.40) m/uL Hgb (11.4-16.0) gm/dL Hct (34.0-46.0) % Plt Count (150-450) k/uL Chloride (98-107) mmol/L Carbon Dioxide (22-30) mmol/L BUN (7-17) mg/dL Glucose (74-99) mg/dL POC Glucose (mg/dL) 164 H (75-99) mg/dL Calcium (8.4-10.2) mg/dL Assessment and Plan (1) Complication of gastric band procedure Narrative/Plan: Await morning upper GI. Possible discontinue nasogastric tube following that. Await morning labs. Continue IV antibiotics. Ambulate. Current Visit: Yes Status: Acute Code(s): K95.09 - OTHER COMPLICATIONS OF GASTRIC BAND PROCEDURE SNOMED Code(s): [id number]
[2019-06-19 08:40] LABS: African American GFR (CKD) >90 (>60 ml/min/1.73 sqM); Albumin 2.2 g/dL (3.5-5.0); Anion Gap 3 mmol/L; Blood Urea Nitrogen 21 mg/dL (7-17); Carbon Dioxide 28 mmol/L (22-30); Chloride 110 mmol/L (98-107); Glucose 151 mg/dL (74-99); Magnesium 1.7 mg/dL (1.6-2.3); Phosphorus 2.5 mg/dL (2.5-4.5); Potassium 3.6 mmol/L (3.5-5.1); Sodium 141 mmol/L (137-145); Triglycerides 47 mg/dL (<150)
--- NOTE | 2019-06-19 08:53 | FL ---
EXAMINATION TYPE: FL UGI w esophagus DATE OF EXAM: 06/19/2019 COMPARISON: NONE HISTORY: Status post removal of lap band following gastric erosion. TECHNIQUE: A single/double contrast UGI study is performed. FINDINGS: The patient has an NG tube in place. Patient drank contrast with ease. There is prompt egress of contrast from the esophagus into the stom ach. The duodenum and ligament of Treitz appear to be within normal location. There is an unusual air collection in the right upper quadrant which may represent a dilated hepatic flexure. I could not ex clude intraperitoneal free air. There is no evidence of contrast extravasation. IMPRESSION: 1. STATUS POST LAP BAND REMOVAL. 2. NO EVIDENCE OF CONTRAST EXTRAVASATION. 3. LARGE COLLECTION OF GAS IN THE RIGHT UPPER QUADRANT MAY REFLECT COLONIC INTERPOSITION. I COULD NOT EXCLUDE INTRAPERITONEAL FREE AIR. A CT SCAN OF THE ABDOMEN AND PELVIS IS SUGGESTED.
[2019-06-19] MEDS: IPRATROPIUM-ALBUTEROL 3 ML NEB INHALATION SCH ×4 (09:17→19:17)
[2019-06-19] MEDS: HEPARIN SODIUM,PORCINE 5,000 UNIT/ML 1 ML VIAL SQ SCH (09:34)
[2019-06-19] MEDS: PANTOPRAZOLE 40 MG/10 ML VIAL IV SCH (09:34)
[2019-06-19 10:10] LABS: HCT 26.5 % (34.0-46.0); HGB 8.7 gm/dL (11.4-16.0); MCH 28.8 pg (25.0-35.0); MCHC 32.6 g/dL (31.0-37.0); MCV 88.3 fL (80.0-100.0); Mean Platelet Volume 9.6; Platelet Count 162 k/uL (150-450); RDW 15.9 % (11.5-15.5); WBC 4.4 k/uL (3.8-10.6)
[2019-06-19] MEDS: 1: MVI, ADULT NO.4 WITH VIT K 10 ML, TRACE (CONC-1ML/DOSE) 1 ML in AMINO ACID 4.25%-D10W IV SCH ×3 (11:26)
[2019-06-19 12:37] LABS: Glucose,Whole Blood 173 mg/dL (75-99)
--- NOTE | 2019-06-19 13:09 | CT ---
EXAMINATION TYPE: CT abdomen wo con DATE OF EXAM: 06/19/2019 COMPARISON: Upper GI from earlier today. HISTORY: Lap band removal 4 days ago. Possible free air. CT DLP: 514.3 mGycm Automated exposure control for dose reduction was used. TECHNIQUE: Helical acquisition of images was performed from the lung bases through the top of iliac crest to include entire abdomen. CONTRAST: Performed with Oral Contrast and without IV contrast. FINDINGS: There is a small left pleural effusion and a smaller right effusion. There is some atelecta tic change at both lung bases. There is no pericardial fluid. The heart is not enlarged. There is an NG tube present with its tip in the stomach. Air collection seen in the right upper quadrant likely represent colonic interposition. There are a f ew bubbles of free air seen posterior to the liver. The liver, spleen and gallbladder are normal. Both adrenal glands are normal. There is no evidence of nephrolithiasis or hydronephrosis. Pancreas is poorly visualized. There is mild atheromatous calcification of the visualized arterial tree. There is some contrast in the colon from a recent contrast examination. There is an abdominal drain i n place. There are metallic skin sutures present. IMPRESSION: 1. STATUS POST LAP BAND REMOVAL. 2. COLONIC INTERPOSITION ON THE RIGHT. 3. MINIMAL FREE AIR SEEN POSTERIOR TO THE LEVEL COMPATIBLE WITH POSTSURGICAL CHANGE. 4. BILATERAL PLEURAL EFFUSIONS, GREATER ON THE LEFT THAN THE RIGHT.
[2019-06-19 17:33] LABS: Glucose,Whole Blood 141 mg/dL (75-99)
--- NOTE | 2019-06-19 17:39 | US ---
EXAMINATION TYPE: US venous doppler duplex UE LT DATE OF EXAM: 06/19/2019 COMPARISON: NONE CLINICAL HISTORY: edema . SIDE PERFORMED: Left Grayscale, color doppler, spectral doppler imaging performed of the deep veins of the upper extremiti es. Left Arm: Positive for DVT, patient has a line in the basilic that extends through the subclavian . T here is no flow seen around the line. There is no flow seen in the subclavian vein. Visualized portions of the left jugular vein show color flow and vascular waveforms. Within the subcl sandoval vein there is low level internal echo about the patient's indwelling PICC line. This is also no vanessa in the axillary vein, basilic vein IMPRESSION: Deep venous and superficial venous thrombosis left upper extremity A Red level critical message alert has been initiated for Bryant Mason MD via the [employer] on 06/19/2019 5:02 PM. This message alert has been sent to Bryant Mason MD via the preferences provided by the clinician for the receipt of Radiology Critical Findings. Message ID [id number].
[2019-06-19] MEDS ORDERED: HEPARIN SODIUM,PORCINE 10,000 UNIT/ML 1 ML VIAL IV ONE (18:32)
[2019-06-19] MEDS ORDERED: HEPARIN SODIUM,PORCINE 5,000 UNIT/ML 1 ML VIAL IV PRN (18:32)
--- NOTE | 2019-06-19 19:34 | PN ---
PROGRESS NOTE DATE OF SERVICE: 06/19/2019. This is a 68-year-old woman with a past medical history of multiple medical problems who was admitted after laparoscopic lysis of adhesions and removal of gastric band is being closely monitored at this time. An upper GI barium swallow was done by Dr. Ash today which showed large collection of gas in the right upper quadrant. CT scan of the abdomen, abdomen, pelvis was done which showed colonic interposition on the right and minimal free air. No chest pain. No palpitations. No fever. PHYSICAL EXAM: Alert and oriented times three. Pulse is 86. Blood pressure 150/80, respiration 12, temperature 98.4, pulse ox 98% on room air. HEENT: Conjunctivae normal. Oral mucosa moist. NECK is no jugular venous distention. No carotid bruit. No lymph node enlargement. CARDIOVASCULAR: S1, S2 muffled. No S3, no S4. RESPIRATORY: Breath sounds diminished in the bases. A few scattered rhonchi. No crackles. ABDOMEN: Soft, status post surgery. LEGS: No edema. No swelling. NERVOUS SYSTEM: No focal deficits. LABS: WBC 4.2, hemoglobin is 8.7, glucose 151, albumin is 2.2. ASSESSMENT: 1. Status post laparoscopic lysis of adhesions, removal of gastric band and gastrography for gastric lap band erosion. 2. Anemia, normocytic possibly anemia of chronic disease. 3. Possible chemical peritonitis, some leakage from gastric contents. 4. Atelectasis as expected. 5. Cough, improved. 6. Hypoalbuminemia. 7. Interposed colon on the right with collection of gas in the right upper quadrant on the CT scan of the abdomen. RECOMMENDATIONS AND DISCUSSION: Recommend to continue current medications, continue to monitor, symptomatic treatment. Otherwise, at this time, I would recommend to continue current medications. Continue incentive spirometry. Continue with antibiotics per Infectious Disease. The patient is on Rocephin and Flagyl. DVT prophylaxis. Further recommendations to follow. MMODL / IJN: [id number] /
[2019-06-19 21:21] LABS: Basophils % (A) 0 %; Eosinophils # (A) 0.2 k/uL (0-0.7); Eosinophils % (A) 5 %; HCT 25.9 % (34.0-46.0); HGB 7.9 gm/dL (11.4-16.0); Lymphocytes # (A) 0.5 k/uL (1.0-4.8); Lymphocytes % (A) 15 %; MCHC 30.5 g/dL (31.0-37.0); MCV 88.3 fL (80.0-100.0); Mean Platelet Volume 7.7; Monocytes # (A) 0.1 k/uL (0-1.0); Monocytes % (A) 4 %; Neutrophils # (A) 2.5 k/uL (1.3-7.7); Neutrophils % (A) 75 %; Platelet Count 149 k/uL (150-450); RBC 2.93 m/uL (3.80-5.40); RDW 15.3 % (11.5-15.5); WBC 3.3 k/uL (3.8-10.6)
[2019-06-19 21:32] LABS: Partial Thromboplastin Time 23.5 sec (22.0-30.0)
--- NOTE | 2019-06-19 22:32 | PN ---
PROGRESS NOTE DATE OF SERVICE: 06/19/2019. REASON FOR FOLLOWUP: Gastric band erosion, abdominal infection. INTERVAL HISTORY: The patient is currently afebrile. The patient denies having any chest pain or shortness of breath or cough. She has complained of some abdominal distention. Still has NG in. No vomiting. Did not have any bowel movement. PHYSICAL EXAMINATION: Blood pressure 145/82 with a pulse of 80, temperature 98, she is 97% on room air. GENERAL DESCRIPTION: An elderly female up in the chair in no distress. RESPIRATORY SYSTEM: Unlabored breathing with decreased breath sounds at the bases. HEART: S1, S2. Regular rate. ABDOMEN: Distended. No guarding or rigidity. EXTREMITIES: No edema of the feet. LABS: Hemoglobin 8, white count of 4.4, BUN of 21, creatinine 0.65. Did have upper GI and barium as well as CT, did not show any evidence of leakage. DIAGNOSTIC IMPRESSION AND PLAN: Patient with erosion of the gastric band, status post open removal of the same. Possible component of chemical peritonitis. Bacterial peritonitis less likely as the patient denies any high-grade fever or elevated white count. Currently covered with Rocephin, Flagyl and Levaquin. Continue. Monitor clinical course closely. Continue supportive care. MMODL / IJN: [id number] /
[2019-06-19] MEDS: HEPARIN SOD,PORK IN 0.45% NACL 25,000 UNIT in 0.45% NACL 1 250ML.BAG IV SCH (22:35)
[2019-06-19] MEDS: LACTATED RINGERS 1,000 ML IV SCH (23:00)
[2019-06-19] MEDS: SODIUM CHLORIDE 0.9% 1,000 ML IV SCH (23:00)
[2019-06-19] MEDS: FLUCONAZOLE IN NACL,ISO-OSM 200 MG in SALINE 1 100ML.BAG IVPB SCH (23:00)
[2019-06-20 00:27] LABS: Glucose,Whole Blood 121 mg/dL (75-99)
[2019-06-20] MEDS: metroNIDAZOLE-NS PMX 500 MG in SALINE 1 100ML.BAG IVPB SCH ×2 (01:46→08:28)
[2019-06-20] MEDS: INSULIN ASPART (NovoLOG) 100 UNIT/ML VIAL SQ SCH ×4 (01:49→19:21)
[2019-06-20] MEDS: HYDROmorphone 1 MG/ML 1 ML SYRINGE IVP PRN ×6 (01:51→21:22)
[2019-06-20 05:57] LABS: Glucose,Whole Blood 81 mg/dL (75-99)
[2019-06-20 06:20] LABS: Basophils % (A) 0 %; Eosinophils # (A) 0.3 k/uL (0-0.7); Eosinophils % (A) 8 %; HCT 26.2 % (34.0-46.0); HGB 8.5 gm/dL (11.4-16.0); Hypochromasia Slight; Lymphocytes # (A) 0.7 k/uL (1.0-4.8); Lymphocytes % (A) 19 %; MCH 29.5 pg (25.0-35.0); MCHC 32.4 g/dL (31.0-37.0); MCV 90.9 fL (80.0-100.0); Monocytes # (A) 0.2 k/uL (0-1.0); Monocytes % (A) 5 %; Neutrophils # (A) 2.2 k/uL (1.3-7.7); Neutrophils % (A) 65 %; Platelet Count 159 k/uL (150-450); RBC 2.89 m/uL (3.80-5.40); RDW 15.6 % (11.5-15.5); WBC 3.4 k/uL (3.8-10.6)
[2019-06-20 07:00] LABS: African American GFR (CKD) >90 (>60 ml/min/1.73 sqM); Anion Gap 4 mmol/L; Blood Urea Nitrogen 20 mg/dL (7-17); Carbon Dioxide 27 mmol/L (22-30); Chloride 110 mmol/L (98-107); Glucose 90 mg/dL (74-99); Magnesium 1.8 mg/dL (1.6-2.3); Phosphorus 2.8 mg/dL (2.5-4.5); Potassium 3.5 mmol/L (3.5-5.1); Sodium 141 mmol/L (137-145)
[2019-06-20] MEDS: IPRATROPIUM-ALBUTEROL 3 ML NEB INHALATION SCH ×4 (07:54→20:58)
--- NOTE | 2019-06-20 08:12 | IR ---
EXAMINATION TYPE: IR cxc insert >=5 years DATE OF EXAM: 06/17/2019 COMPARISON: NONE CLINICAL HISTORY: Infection and abdominal surgery. Needs long-term intravenous access for antibiotics and total parenteral nutrition. PROCEDURE: After informed consent, the skin overlying the left basilic vein was localized with ultrasound and no vanessa to be compressible and patent. An ultrasound image was obtained and submitted on the patient's c daly. The overlying skin was prepped and draped and Lidocaine was used for local anesthesia. A skin ganesh was made with a scalpel. Access was gained to the vein under ultrasound guidance with a 21 gau ge needle and a 0.018 inch wire was advanced. Access site was dilated with Peel-Away sheath and cath eter tailored to the appropriate length and advanced such that the distal tip is at the cavoatrial ju nction. Spot image was obtained verifying placement. Catheter was fixed to the skin and a sterile d ressing was placed following hemostasis. Catheter was aspirated and flushed with saline. Patient wa s discharged in stable condition without complication. Maximal barrier technique is utilized. Ultras ound image is documented on the chart. Ultrasound used with sterile technique. Fluoro time and fluoroscopic images submitted to document procedure: 36 intraoperative C-arm images, 0.1 minutes fluoroscopy time IMPRESSION: STATUS POST ULTRASOUND AND FLUOROSCOPIC GUIDED PICC LINE PLACEMENT, READY FOR USE. THIS PROCEDURE WAS PERFORMED BY THE UNDERSIGNED.
[2019-06-20] MEDS: PANTOPRAZOLE 40 MG/10 ML VIAL IV SCH (08:28)
[2019-06-20] MEDS ORDERED: MAGNESIUM SULFATE-D5W PMX 1 GM in DEXTROSE/WATER 1 100ML.BAG IVPB SCH (09:00)
[2019-06-20] MEDS: 1: MVI, ADULT NO.4 WITH VIT K 10 ML, TRACE (CONC-1ML/DOSE) 1 ML in AMINO ACID 4.25%-D10W IV SCH ×3 (10:23)
[2019-06-20] MEDS: POTASSIUM CHLORIDE 10 MEQ in WATER FOR INJECTION 1 100ML.BAG IVPB SCH ×4 (10:36→14:40)
[2019-06-20] MEDS: FLUCONAZOLE 100 MG TAB PO SCH (10:39)
[2019-06-20] MEDS: 1: MVI, ADULT NO.4 WITH VIT K 10 ML, TRACE (CONC-1ML/DOSE) 1 ML, POTASSIUM CHLORIDE 20 M IV SCH ×5 (12:09)
[2019-06-20] MEDS: HEPARIN SOD,PORK IN 0.45% NACL 25,000 UNIT in 0.45% NACL 1 250ML.BAG IV SCH (12:09)
--- NOTE | 2019-06-20 12:16 | P.GSCN ---
History of Present Illness Consult date: 06/20/19 Reason for Consult: Left upper extremity DVT, PICC line History of present illness: Patient 68-year-old female with past medical history of gastric band surgery, right breast cancer status post mastectomy, osteoporosis and a history of a DVT. She initially presented to the hospital after having epigastric pain and an outpatient EGD noting gastric band erosion. She was recently taken to the operating room for lysis of adhesions and removal of the gastric band along with gastric repair. She had been initiated on TPN via a left upper extremity basilic vein PICC line. She has been receiving antibiotics and TPN through this line. Yesterday she began noting increased swelling of the arm on the left side. An ultrasound was performed revealing basilic vein thrombus as well as DVT into the axillary and subclavian veins. At that point she was started on heparin drip. This morning her arm is reportedly less swollen and previous. She denies any chest pains, nausea, vomiting, fevers or chills Past Medical History Past Medical History: Cancer, Deep Vein Thrombosis (DVT), Osteoarthritis (OA) Additional Past Medical History / Comment(s): Right breast cancer (had mast ectomy and chemotherapy Tamoxifen). Osteoporosis. Stenosis of neck and back. dvt 1988 History of Any Multi-Drug Resistant Organisms: None Reported Past Surgical History: Bariatric Surgery, Orthopedic Surgery Additional Past Surgical History / Comment(s): Lap band placed 2006,. Bilateral knee replacement. Right mastectomy. lap band removal 06/15/2019 Past Anesthesia/Blood Transfusion Reactions: Postoperative Nausea & Vomiting (PONV) Additional Past Anesthesia/Blood Transfusion Reaction / Comm: has had a reaction to blood transfusion, hives (needed benadryl) Past Psychological History: No Psychological Hx Reported Smoking Status: Never smoker Past Alcohol Use History: Rare Past Drug Use History: None Reported Medications and Allergies Home Medications Medication Instructions Recorded Confirmed Type Calcium Carbonate/Vitamin D3 1 cap PO TID 06/13/19 06/15/19 History [Calcium 600-Vit D3 500 Softgel] traMADol HCL [Ultram] 50 mg PO Q4-6H PRN 06/13/19 06/15/19 History Allergies Allergy/AdvReac Type Severity Reaction Status Date / Time Penicillins Allergy Unknown Verified 06/15/19 16:20 Childhood Surgical - Exam Vital Signs Temp Pulse Resp BP Pulse Ox 98.4 F 73 16 136/60 100 06/15/19 12:50 06/15/19 12:50 06/15/19 12:50 06/15/19 12:50 06/15/19 12:50 Toby aguirre cooperative female in no acute distress HEENT is normal cephalic, atraumatic, extraocular motion intact Right breast surgically absent Abdomen soft, nontender, nondistended Left upper extremity moderate swelling, PICC line in place and functioning. Palpable radial pulses bilaterally Cranial nerves II through XII grossly intact Motor sensory intact Results - Labs 06/20/19 06:05 06/20/19 06:05 Abnormal Lab Results - Last 24 Hours (Table) 06/19/19 06/19/19 06/19/19 Range/Units 12:24 17:16 21:06 WBC 3.3 L (3.8-10.6) k/uL RBC 2.93 L (3.80-5.40) m/uL Hgb 7.9 L (11.4-16.0) gm/dL Hct 25.9 L (34.0-46.0) % MCHC 30.5 L (31.0-37.0) g/dL RDW (11.5-15.5) % Plt Count 149 L (150-450) k/uL Lymphocytes # 0.5 L (1.0-4.8) k/uL APTT (22.0-30.0) sec Chloride (98-107) mmol/L BUN (7-17) mg/dL POC Glucose (mg/dL) 173 H 141 H (75-99) mg/dL Calcium (8.4-10.2) mg/dL 06/20/19 06/20/19 06/20/19 Range/Units 00:25 06:05 06:05 WBC 3.4 L (3.8-10.6) k/uL RBC 2.89 L (3.80-5.40) m/uL Hgb 8.5 L (11.4-16.0) gm/dL Hct 26.2 L (34.0-46.0) % MCHC (31.0-37.0) g/dL RDW 15.6 H (11.5-15.5) % Plt Count (150-450) k/uL Lymphocytes # 0.7 L (1.0-4.8) k/uL APTT (22.0-30.0) sec Chloride 110 H (98-107) mmol/L BUN 20 H (7-17) mg/dL POC Glucose (mg/dL) 121 H (75-99) mg/dL Calcium 8.0 L (8.4-10.2) mg/dL 06/20/19 Range/Units 06:05 WBC (3.8-10.6) k/uL RBC (3.80-5.40) m/uL Hgb (11.4-16.0) gm/dL Hct (34.0-46.0) % MCHC (31.0-37.0) g/dL RDW (11.5-15.5) % Plt Count (150-450) k/uL Lymphocytes # (1.0-4.8) k/uL APTT 184.2 H* (22.0-30.0) sec Chloride (98-107) mmol/L BUN (7-17) mg/dL POC Glucose (mg/dL) (75-99) mg/dL Calcium (8.4-10.2) mg/dL Diabetes panel 06/20/19 Range/Units 06:05 Sodium 141 (137-145) mmol/L Potassium 3.5 (3.5-5.1) mmol/L Chloride 110 H (98-107) mmol/L Carbon Dioxide 27 (22-30) mmol/L BUN 20 H (7-17) mg/dL Creatinine 0.62 (0.52-1.04) mg/dL Glucose 90 (74-99) mg/dL Calcium 8.0 L (8.4-10.2) mg/dL Calcium panel 06/20/19 Range/Units 06:05 Calcium 8.0 L (8.4-10.2) mg/dL Phosphorus 2.8 (2.5-4.5) mg/dL Pituitary panel 06/20/19 Range/Units 06:05 Sodium 141 (137-145) mmol/L Potassium 3.5 (3.5-5.1) mmol/L Chloride 110 H (98-107) mmol/L Carbon Dioxide 27 (22-30) mmol/L BUN 20 H (7-17) mg/dL Creatinine 0.62 (0.52-1.04) mg/dL Glucose 90 (74-99) mg/dL Calcium 8.0 L (8.4-10.2) mg/dL Adrenal panel 06/20/19 Range/Units 06:05 Sodium 141 (137-145) mmol/L Potassium 3.5 (3.5-5.1) mmol/L Chloride 110 H (98-107) mmol/L Carbon Dioxide 27 (22-30) mmol/L BUN 20 H (7-17) mg/dL Creatinine 0.62 (0.52-1.04) mg/dL Glucose 90 (74-99) mg/dL Calcium 8.0 L (8.4-10.2) mg/dL - Imaging Additional studies: Ultrasound a left upper extremity is reviewed. There is basilic vein thrombus extends into the axillary and subclavian veins. There is a patent left internal jugular vein Assessment and Plan Assessment: Left upper extremity DVT associated with PICC line Gastric band erosion status post gastric revision and surgical resection of band Protein calorie malnutrition Plan: At this point patient is on adequate therapy, heparin drip. Had discussion with nursing last time of the consultation regarding the ability to maintain the PICC line at this time. It was kept in place and the patient was heparinized. Going forward, if the patient no longer needs the PICC line, would recommend removal and continuation of oral anticoagulation. The patient is to need further TPN or IV antibiotics, we would be happy to place a tunneled central line via an internal jugular vein, although this does not appear to be necessary for long-term as far as my chart review and discussion with nursing staff and the patient. Please let me know given any further assistance, thank you for allowing us to proceed his feet in the care of your patient
[2019-06-20 12:22] LABS: Glucose,Whole Blood 81 mg/dL (75-99)
--- NOTE | 2019-06-20 12:51 | P.PN ---
Subjective Progress Note Date: 06/20/19 CHIEF COMPLAINT: gastric band erosion HISTORY OF PRESENT ILLNESS: Patient is status post laparoscopic lysis of adhesions, open removal of gastric band, and gastrorrhaphy. POD #5. Patient reports abdominal pain is tolerable. She is tolerating ice chips and popsicles WBC 3.4. Hemoglobin 8.5. PHYSICAL EXAM: VITAL SIGNS: Reviewed GENERAL: Well-developed in no acute distress. HEENT: No sclera icterus. Extraocular movements grossly intact. Moist buccal mucosa. Head is atraumatic, normocephalic. Hears conversational speech. No nasal drai nage. NECK: Supple without lymphadenopathy. CHEST: Non-labored respirations and equal bilateral excursions. CARDIOVASCULAR: Regular rate with regular rhythm. Palpable 2+ radial pulses. ABDOMEN: Soft. Nondistended. PREVENA wound system to midline incision. MELISSA drain with sanguineous drainage MUSCULOSKELETAL: No clubbing, cyanosis or edema. NEUROLOGIC: No focal or lateralizing signs. Cranial nerves II through XII grossly intact. PSYCH: Appropriate affect. Alert and oriented to person, place and time. SKIN: Well perfused. Good skin turgor. ASSESSMENT: 1. Gastric band erosion, status post laparoscopic lysis of adhesions, open removal of gastric band, and gastrorrhaphy 2. Acute blood loss anemia, an unexpected but potential outcome of surgery 3. Acute DVT left upper extremity PLAN: 1. Clear liquid diet. Do not advance unless approved by surgery. 2. Replace potassium and magnesium 3. Activity as tolerated 4. Incentive spirometry 5. Await final antibiotic recommendations per Dr. Wolf. If IV antibiotic therapy recommended at discharge, vascular surgery will place left internal jugular line and remove PICC line per their dictation. Otherwise, will DC PICC line prior to discharge 6. Anticoagulation per medicine team Nurse practitioner note has been reviewed by physician. Signing provider agrees with the documented findings, assessment, and plan of care. Objective - Vital Signs Vital signs: Vital Signs Temp 98.2 F 06/20/19 07:40 Pulse 88 06/20/19 12:06 Resp 16 06/20/19 07:40 BP 190/82 06/20/19 07:40 Pulse Ox 97 06/20/19 07:40 Intake & Output 06/19/19 06/20/19 06/20/19 18:59 06:59 18:59 Intake Total 822.889 0 Output Total 40 55 Balance -40 767.889 0 Weight 81.2 kg Intake: IV 86 Heparin Sod,Pork in 0.45% 86 NaCl 25,000 unit In 0.45 % NaCl 1 250ml.bag @ 18 UNITS/KG/HR 14.656 mls/hr IV .Q17H4M [facility] Rx#: [id number] Intake, IV Titration 646.889 0 Amount Fluconazole in NaCl,Iso- 100 Osm 200 mg In Saline 1 100ml.bag @ 100 mls/hr IVPB Q24H [facility] Rx#: [id number] Heparin Sod,Pork in 0.45% 121.889 0 NaCl 25,000 unit In 0.45 % NaCl 1 250ml.bag @ 18 UNITS/KG/HR 14.656 mls/hr IV .Q17H4M [facility] Rx#: [id number] Sodium Chloride 0.9% 1, 425 000 ml @ 60 mls/hr IV . [id number] [facility] Rx#:[id number] Oral 90 Output: Drainage 40 55 Abdomen 40 55 Other: Voiding Method Toilet Toilet Toilet # Voids 1 - Labs CBC & Chem 7: 06/20/19 06:05 06/20/19 06:05 Labs: Abnormal Lab Results - Last 24 Hours (Table) 06/19/19 06/19/19 06/20/19 Range/Units 17:16 21:06 00:25 WBC 3.3 L (3.8-10.6) k/uL RBC 2.93 L (3.80-5.40) m/uL Hgb 7.9 L (11.4-16.0) gm/dL Hct 25.9 L (34.0-46.0) % MCHC 30.5 L (31.0-37.0) g/dL RDW (11.5-15.5) % Plt Count 149 L (150-450) k/uL Lymphocytes # 0.5 L (1.0-4.8) k/uL APTT (22.0-30.0) sec Chloride (98-107) mmol/L BUN (7-17) mg/dL POC Glucose (mg/dL) 141 H 121 H (75-99) mg/dL Calcium (8.4-10.2) mg/dL 06/20/19 06/20/19 06/20/19 Range/Units 06:05 06:05 06:05 WBC 3.4 L (3.8-10.6) k/uL RBC 2.89 L (3.80-5.40) m/uL Hgb 8.5 L (11.4-16.0) gm/dL Hct 26.2 L (34.0-46.0) % MCHC (31.0-37.0) g/dL RDW 15.6 H (11.5-15.5) % Plt Count (150-450) k/uL Lymphocytes # 0.7 L (1.0-4.8) k/uL APTT 184.2 H* (22.0-30.0) sec Chloride 110 H (98-107) mmol/L BUN 20 H (7-17) mg/dL POC Glucose (mg/dL) (75-99) mg/dL Calcium 8.0 L (8.4-10.2) mg/dL Assessment and Plan (1) DVT (deep venous thrombosis) Current Visit: Yes Status: Acute Code(s): I82.409 - ACUTE EMBOLISM AND THOMBOS UNSP DEEP VN UNSP LOWER EXTREMITY SNOMED Code(s): 474880150 (2) Acute blood loss anemia Current Visit: Yes Status: Acute Code(s): D62 - ACUTE POSTHEMORRHAGIC ANEMIA SNOMED Code(s): 813822062 (3) Complication of gastric band procedure Current Visit: Yes Status: Acute Code(s): K95.09 - OTHER COMPLICATIONS OF GASTRIC BAND PROCEDURE SNOMED Code(s): 377851303859330
[2019-06-20] MEDS: SODIUM CHLORIDE 0.9% 1,000 ML IV SCH (13:50)
[2019-06-20] MEDS: metroNIDAZOLE 500 MG TAB PO SCH ×2 (16:46→21:22)
[2019-06-20] MEDS: MAGNESIUM SULFATE-D5W PMX 1 GM in DEXTROSE/WATER 1 100ML.BAG IVPB SCH ×2 (16:49→17:51)
--- NOTE | 2019-06-20 17:03 | P.PN ---
Subjective Progress Note Date: 06/20/19 Principal diagnosis: This is a 68-year-old woman with past medical history of multiple medical problems who was admitted after laparoscopic lysis of adhesions and removal of an erosive gastric band that's being closely monitored at this time. Patient is currently tolerating clear liquids and ice chips per surgery. Surgery is following closely. Patient had an ultrasound of the left upper arm which shows a DVT of the left basilic vein as well as DVT into the axillary and subclavian veins. Patient was on a heparin drip. Vascular surgery was consult did and is recommending oral anticoagulation and oral antibiotics if okayed by infectious disease. Patient is hemodynamically stable. Current hemoglobin is 8.5. Patient does have an abdominal band over the surgical incision and states that this helps when she coughs or laughs and gets up. Patient is walking with a steady gait and states it helps her pain. Patient denies any chest pain, shortness of breath, or palpitations at this time. Patient denies any nausea or vomiting and is tolerating ice chips. Family at the bedside. MELISSA drain is still showing serosanguineous output. Objective - Vital Signs Vital signs: Vital Signs Temp 98.7 F 06/20/19 14:42 Pulse 87 06/20/19 16:31 Resp 16 06/20/19 14:42 BP 181/83 06/20/19 14:42 Pulse Ox 99 06/20/19 14:42 Intake & Output 06/19/19 06/20/19 06/20/19 18:59 06:59 18:59 Intake Total 822.889 0 Output Total 40 55 Balance -40 767.889 0 Weight 81.2 kg Intake: IV 86 Heparin Sod,Pork in 0.45% 86 NaCl 25,000 unit In 0.45 % NaCl 1 250ml.bag @ 18 UNITS/KG/HR 14.656 mls/hr IV .Q17H4M [facility] Rx#: [id number] Intake, IV Titration 646.889 0 Amount Fluconazole in NaCl,Iso- 100 Osm 200 mg In Saline 1 100ml.bag @ 100 mls/hr IVPB Q24H [facility] Rx#: [id number] Heparin Sod,Pork in 0.45% 121.889 0 NaCl 25,000 unit In 0.45 % NaCl 1 250ml.bag @ 18 UNITS/KG/HR 14.656 mls/hr IV .Q17H4M [facility] Rx#: [id number] Sodium Chloride 0.9% 1, 425 000 ml @ 60 mls/hr IV . [id number] [facility] Rx#:[id number] Oral 90 Output: Drainage 40 55 Abdomen 40 55 Other: Voiding Method Toilet Toilet Toilet # Voids 1 - Exam Gen: This is a 68-year-old female sitting up in recliner in no acute distress. Blood pressure is 190/82, pulse is 80, respirations are 16, temp is 98.2F, pulse ox is 97% on room air. HEENT: Head is atraumatic, normocephalic. Pupils equal, round. Sclerae is anicteric. NECK: Supple. No JVD. No lymphadenopathy. No thyromegaly. LUNGS: Breath sounds diminished at the bases. No wheezes or crackles noted. No intercostal retractions. HEART: Regular rate and rhythm. No murmur. S1 and S2 are muffled ABDOMEN: Soft. Bowel sounds are present. No masses. Mild tenderness at the surgical site of the lower abdomen. Dressing is dry and intact with a MELISSA drain present EXTREMITIES: No pedal edema. No calf tenderness. NEUROLOGICAL: Patient is awake, alert and oriented x3. Cranial nerves 2 through 12 are grossly intact. - Labs CBC & Chem 7: 06/20/19 06:05 06/20/19 06:05 Labs: Abnormal Lab Results - Last 24 Hours (Table) 06/19/19 06/19/19 06/20/19 Range/Units 17:16 21:06 00:25 WBC 3.3 L (3.8-10.6) k/uL RBC 2.93 L (3.80-5.40) m/uL Hgb 7.9 L (11.4-16.0) gm/dL Hct 25.9 L (34.0-46.0) % MCHC 30.5 L (31.0-37.0) g/dL RDW (11.5-15.5) % Plt Count 149 L (150-450) k/uL Lymphocytes # 0.5 L (1.0-4.8) k/uL APTT (22.0-30.0) sec Chloride (98-107) mmol/L BUN (7-17) mg/dL POC Glucose (mg/dL) 141 H 121 H (75-99) mg/dL Calcium (8.4-10.2) mg/dL 06/20/19 06/20/19 06/20/19 Range/Units 06:05 06:05 06:05 WBC 3.4 L (3.8-10.6) k/uL RBC 2.89 L (3.80-5.40) m/uL Hgb 8.5 L (11.4-16.0) gm/dL Hct 26.2 L (34.0-46.0) % MCHC (31.0-37.0) g/dL RDW 15.6 H (11.5-15.5) % Plt Count (150-450) k/uL Lymphocytes # 0.7 L (1.0-4.8) k/uL APTT 184.2 H* (22.0-30.0) sec Chloride 110 H (98-107) mmol/L BUN 20 H (7-17) mg/dL POC Glucose (mg/dL) (75-99) mg/dL Calcium 8.0 L (8.4-10.2) mg/dL Assessment and Plan Assessment: Status post laparoscopic lysis of adhesions, removal of gastric band, and gastrography for gastric lap band erosion Anemia, normocytic possibly anemia of chronic disease Left arm basilic vein thrombus as well as DVT into the axillary and subclavian veins by the PICC line Possible chemical peritonitis, some leakage from gastric contents Atelectasis as expected Cough, improved Hypoalbuminemia Interposed colon on the right with collection of gas in the right upper quadrant on computed tomography scan of the abdomen DVT prophylaxis: Was on heparin drip will be transitioned to oral anticoagulants with Eliquis Recommendations and discussion: Recommend continue current medications, continue to monitor, continue symptom atic treatment. Patient is currently being switched to oral antibiotics per infectious disease recommendations. Patient will also be switched to oral anticoagulation for DVT prophylaxis. PICC line will be removed once all medications have been switched to oral. Infectious disease and surgery is following closely. Patient encouraged to continue incentive spirometry as she was reaching 1000 today. Guarded prognosis. Further recommendations to follow.
[2019-06-20] MEDS ORDERED: FAT EMULSION 20% 250 ML in EMPTY BAG 1 BAG IV SCH (18:00)
[2019-06-20 18:50] LABS: Glucose,Whole Blood 98 mg/dL (75-99)
--- NOTE | 2019-06-20 20:27 | PN ---
PROGRESS NOTE DATE OF SERVICE: 06/20/2019. REASON FOR FOLLOWUP: Possible secondary peritonitis with . INTERVAL HISTORY: The patient is currently afebrile. The patient has been breathing comfortably. Denies any chest pain. NG has been discontinued. Started on clear liquids. Has been tolerated so far. No nausea or vomiting. No diarrhea. PHYSICAL EXAMINATION: Blood pressure 181/83 with a pulse of 92, temperature 98.7, she is 99% on room air. General description is an elderly female up in the bed in no distress. RESPIRATORY SYSTEM: Unlabored breathing. Clear to auscultation anteriorly. Heart S1, S2. Regular rate and rhythm. ABDOMEN: Soft, no tenderness. LABS: Hemoglobin 8.5, white count 3.4, BUN of 20, creatinine 0.62. The patient did have a CT of the right arm with evidence of DVT. DIAGNOSTIC IMPRESSION AND PLAN: Patient admitted to the hospital with gastric band erosion status post laparotomy and removal of the band. Patient with concern for possible the patient is currently covered with Flagyl, Diflucan and Rocephin DVT left arm at the site of PICC line which will be discontinued. The patient will be started on anticoagulation by vascular surgery. Plan is likely for transition to oral antibiotic once oral intake has improved and hence no need for another PICC line. Discussed with family. Questions answered. SANNA / DARRINN: [id number] /
[2019-06-20] MEDS: APIXABAN 5 MG TAB PO SCH (21:22)
[2019-06-21] MEDS: LACTATED RINGERS 1,000 ML IV SCH (00:45)
[2019-06-21 01:02] LABS: Glucose,Whole Blood 87 mg/dL (75-99)
[2019-06-21] MEDS: INSULIN ASPART (NovoLOG) 100 UNIT/ML VIAL SQ SCH ×3 (01:14→11:26)
[2019-06-21] MEDS: SODIUM CHLORIDE 0.9% 1,000 ML IV SCH (01:15)
[2019-06-21] MEDS: 1: MVI, ADULT NO.4 WITH VIT K 10 ML, TRACE (CONC-1ML/DOSE) 1 ML, POTASSIUM CHLORIDE 20 M IV SCH ×5 (03:49)
[2019-06-21] MEDS: HYDROmorphone 1 MG/ML 1 ML SYRINGE IVP PRN ×2 (03:51→06:50)
[2019-06-21 06:21] LABS: Glucose,Whole Blood 91 mg/dL (75-99)
[2019-06-21 07:37] VITALS: BP 160/89; RESP 16; TEMP 99.5
[2019-06-21] MEDS: PANTOPRAZOLE 40 MG/10 ML VIAL IV SCH (08:03)
--- NOTE | 2019-06-21 08:25 | P.PN ---
Subjective Progress Note Date: 06/21/19 Patient seen and examined. Overall feeling better. Some swelling left upper extremity. They have been able to private branch exchange service adviser to oral medications and no plans for TPN as an outpatient Objective - Vital Signs Vital signs: Vital Signs Temp 99.5 F 06/21/19 07:00 Pulse 95 06/21/19 07:00 Resp 16 06/21/19 07:00 BP 160/89 06/21/19 07:00 Pulse Ox 98 06/21/19 07:00 Intake & Output 06/20/19 06/21/19 06/21/19 18:59 06:59 18:59 Intake Total 100 220 Output Total 50 Balance 50 220 Weight 95.8 kg Intake: Intake, IV Titration 0 Amount Heparin Sod,Pork in 0.45% 0 NaCl 25,000 unit In 0.45 % NaCl 1 250ml.bag @ 18 UNITS/KG/HR 14.656 mls/hr IV .Q17H4M [facility] Rx#: [id number] Oral 100 220 Output: Drainage 50 Abdomen 50 Other: Voiding Method Toilet Toilet # Voids 1 - Exam No acute distress resting comfortably Heart regular Lungs clear Left upper extremity mild edema, palpable radial pulse - Labs CBC & Chem 7: 06/20/19 06:05 06/20/19 06:05 Assessment and Plan Assessment: Left upper extremity DVT associated with PICC line Gastric band erosion status post gastric revision and surgical resection of band Plan: Overall feeling better. Recommend elevation and compression to the left upper extremity upon discharge. Discontinue the PICC line upon discharge. Patient has been transitioned over to [facility]. She lives in [place] and is told that she may follow up with her primary care physician or come back down here for follow-up in 4 weeks. We will stop at this time. Please let us know if there is any further assistance we can provide.
[2019-06-21 08:53] LABS: Basophils % (A) 0 %; Eosinophils # (A) 0.2 k/uL (0-0.7); Eosinophils % (A) 4 %; HCT 25.4 % (34.0-46.0); HGB 8.1 gm/dL (11.4-16.0); Lymphocytes # (A) 0.5 k/uL (1.0-4.8); Lymphocytes % (A) 12 %; MCH 28.1 pg (25.0-35.0); MCHC 31.8 g/dL (31.0-37.0); MCV 88.5 fL (80.0-100.0); Mean Platelet Volume 8.2; Monocytes # (A) 0.2 k/uL (0-1.0); Monocytes % (A) 4 %; Neutrophils # (A) 3.2 k/uL (1.3-7.7); Neutrophils % (A) 78 %; Platelet Count 179 k/uL (150-450); RBC 2.87 m/uL (3.80-5.40); RDW 15.3 % (11.5-15.5); WBC 4.1 k/uL (3.8-10.6)
[2019-06-21 08:54] LABS: African American GFR (CKD) >90 (>60 ml/min/1.73 sqM); Anion Gap 4 mmol/L; Blood Urea Nitrogen 16 mg/dL (7-17); Calcium 7.9 mg/dL (8.4-10.2); Carbon Dioxide 26 mmol/L (22-30); Chloride 108 mmol/L (98-107); Glucose 91 mg/dL (74-99); Magnesium 2.1 mg/dL (1.6-2.3); Phosphorus 2.9 mg/dL (2.5-4.5); Potassium 4.1 mmol/L (3.5-5.1); Sodium 138 mmol/L (137-145)
[2019-06-21] MEDS: APIXABAN 5 MG TAB PO SCH (09:22)
[2019-06-21] MEDS: metroNIDAZOLE 500 MG TAB PO SCH (09:22)
[2019-06-21] MEDS: FLUCONAZOLE 100 MG TAB PO SCH (09:23)
[2019-06-21] MEDS: IPRATROPIUM-ALBUTEROL 3 ML NEB INHALATION SCH ×2 (09:42→13:22)
[2019-06-21] MEDS ORDERED: traMADol 50 MG TAB PO PRN (10:08)
--- NOTE | 2019-06-21 10:37 | CDI ---
Moderate protien alvarez malnutrition Documentation Clarification Form Date: 06/21/2019 10:22:47 AM From: Kailyn Boone Phone: Admit Date: 06/15/2019 10:37:00 AM Patient Name: Eri Whittington Visit Number: [id number] Discharge Date: ATTENTION: The Clinical Documentation Specialists (CDI) and [facility] Coding Staff appreciate your assistance in clarifying documentation. Please respond to the clarification below the line at the bottom and electronically sign. The CDI & [facility] Coding staff will review the response and follow-up if needed. Please note: Queries are made part of the Legal Health Record. If you have any questions, please contact the author of this message via ITS. Dr. Isabel Liao: Protein Calorie Malnutrition has been documented in the 06/20 vascular surgery consult without further specificity. History/Risk Factors: Bariatric Surgery (Lap Band 2006), DVT, Right breast CA status post mastectomy & chemotherapy & anemia of chronic disease. Clinical Indicators: Presented for elective removal of the gastric band, postoperatively given PICC line for TPN, developed LUE DVT, PICC line removed. Current BMI: 37.4 LAB: Glucose 127^, Total Protein 4.7*, Albumin 2.5* Dietitian consulted, no documentation. Treatment: IV Kefzol, IV Zofran, IV Decadron, Scopolamine patch, IV Dilaudid, heparin sq, IV Toradol, IV Levaquin, IV fluid bolus *06/16), IV Flagyl, IV Lasix, INH Albuterol, TPN 06/18 & 06/19 (PICC line removed due to DVT). In your professional opinion, can you please clarify if these findings signify one of the following conditions? Mild Protein-Calorie Malnutrition Moderate Protein-Calorie Malnutrition Severe Protein-Calorie Malnutrition Malnutrition following GI surgery Malnutrition ruled out Other condition, please specify Unable to determine (Last Revision: May 2019) MTDD
[2019-06-21 11:24] LABS: Glucose,Whole Blood 76 mg/dL (75-99)
[2019-06-21 11:34] VITALS: PULSE 90
[2019-06-21] MEDS ORDERED: HYDROcodone/APAP 5-325MG 1 EACH TAB PO PRN (13:28)
--- NOTE | 2019-06-21 13:41 | P.PN ---
Progress Note - Text Progress Note Date: 06/21/19 To whom it may concern, Pilo Whittington was at [facility] from June 15, 2019 until June 21, 2019. His was hospitalized for a serious medical condition and required surgery while she was at our facility. If you have any questions, please contact Dr. Gore's office at [phone] Sincerely, Prema Lawrence, Nurse Practitioner General Surgery
--- NOTE | 2019-06-21 13:46 | P.DS ---
Providers Date of admission: 06/15/19 10:37 Expected date of discharge: 06/21/19 Attending physician: Brian Gore Consults: 06/15/19 18:07 Consult Physician Routine Consulting Provider: Bryant Mason Consult Reason/Comments: Medical management Do you want consulting provider notified?: Yes Consult Physician Routine Consulting Provider: Maria Eugenia Wolf Consult Reason/Comments: Gastric band erosion into stomach, yeast? Do you want consulting provider notified?: Yes 06/19/19 19:03 Consult Physician Urgent Consulting Provider: Isabel Liao Consult Reason/Comments: vascular access/DVT Do you want consulting provider notified?: Yes Primary care physician: Stated None - Discharge Diagnosis(es) (1) DVT (deep venous thrombosis) Current Visit: Yes Status: Acute (2) Acute blood loss anemia Current Visit: Yes Status: Acute (3) Complication of gastric band procedure Current Visit: Yes Status: Acute Hospital Course: 68-year-old female who underwent laparoscopic lysis of adhesions, open removal of gastric band, and gastrorrhaphy. NG tube was placed postoperatively. She was placed on TPN for nutritional support. Barium swallow was performed which was negative for leak. TPN and NG tube were eventually discontinued and patient was started on clear liquid diet. She is tolerating well. Patient did require 1 unit of packed RBCs during hospitalization secondary to acute blood loss anemia. Patient was diagnosed with left upper extremity DVT. She was evaluated by vascular surgery. She was placed on Eliquis. Patient was also evaluated during hospitalization by infectious disease. She is being discharged home on Flagyl and Ceftin and Diflucan. She is stable for discharge home today. MELISSA drain to remain in place until follow up appointment with Dr. Gore. She is stable for discharge home today per Dr. Cline. Please see EMR for further hospital course details. Discharge Diagnosis: 1. Gastric band erosion, status post laparoscopic lysis of adhesions, open removal of gastric band, and gastrorrhaphy 2. Acute blood loss anemia, an unexpected but potential outcome of surgery 3. Acute DVT left upper extremity Nurse practitioner note has been reviewed by physician. Signing provider agrees with the documented findings, assessment, and plan of care. Plan - Discharge Summary Discharge Rx Participant: Yes New Discharge Prescriptions: New Cefuroxime Axetil [Ceftin] 500 mg PO BID 7 Days #14 tab Fluconazole [Diflucan] 200 mg PO DAILY 7 Days #7 tab Apixaban [Eliquis] 10 mg PO BID 7 Days tab Apixaban [Eliquis] 5 mg PO BID 30 Days #60 tab metroNIDAZOLE [Flagyl] 500 mg PO TID 7 Days #21 tab Hydrocodone/Acetaminophen [Delavan 5-325] 1 tab PO Q4HR PRN 3 Days #18 tab PRN Reason: Pain Docusate [Colace] 100 mg PO BID #30 capsule Discontinued traMADol HCL [Ultram] 50 mg PO Q4-6H PRN PRN Reason: Pain Calcium Carbonate/Vitamin D3 [Calcium 600-Vit D3 500 Softgel] 1 cap PO TID Discharge Medication List Apixaban [Eliquis] 5 mg PO BID 30 Days #60 tab 06/21/19 [Rx] Apixaban [Eliquis] 10 mg PO BID 7 Days tab 06/21/19 [Rx] Cefuroxime Axetil [Ceftin] 500 mg PO BID 7 Days #14 tab 06/21/19 [Rx] Docusate [Colace] 100 mg PO BID #30 capsule 06/21/19 [Rx] Fluconazole [Diflucan] 200 mg PO DAILY 7 Days #7 tab 06/21/19 [Rx] Hydrocodone/Acetaminophen [Delavan 5-325] 1 tab PO Q4HR PRN 3 Days #18 tab 06/21/19 [Rx] metroNIDAZOLE [Flagyl] 500 mg PO TID 7 Days #21 tab 06/21/19 [Rx] Follow up Appointment(s)/Referral(s): [facility] [NON-STAFF] - 06/27/19 1:40 pm Maria Eugenia Wolf MD [STAFF PHYSICIAN] - 06/28/19 3:00 pm Activity/Diet/Wound Care/[phone] Eliquis copay is $12.00/month Continue liquid diet. SLOWLY advance diet as tolerated No lifting over 10 pounds You may shower. No soaking or tub baths Very light activity until you are reevaluated at your follow up appointment with your surgeon MELISSA drain to remain in until follow up visit with Dr. Gore NO TAKING ULTRAM WHILE TAKING NORCO Activity limited until follow-up Follow up with primary care provider this week Advance diet as tolerated Monitor MELISSA drain output and notify surgery with any increase in output continue taking antibiotics and follow up with Dr. Wolf in one week. Wound care: Please leave optifoam in place for 5 days. Home care nurse to remove in 5 days and leave open to air unless it's draining. If draining, cover with a 4x4 dry dressing. Discharge Disposition: HOME WITH HOME HEALTH SERVICES
--- NOTE | 2019-06-21 13:46 | PN ---
PROGRESS NOTE DATE OF SERVICE: 06/21/2019 REASON FOR FOLLOWUP: Erosion of the gastric band with question of secondary peritonitis. INTERVAL HISTORY: The patient is currently afebrile. The patient has been breathing comfortably. Patient denies having any chest pain, shortness of breath. Abdominal pain improved. No nausea, vomiting. No diarrhea. PHYSICAL EXAMINATION: On examination, blood pressure 160/89, pulse 95, temperature 99.5. He is 98% on room air. General description is an elderly female up in the chair in no distress. RESPIRATORY SYSTEM: Unlabored breathing, clear to auscultation anteriorly. HEART: S1, S2. Regular rate and rhythm. ABDOMEN: Soft. Incision currently . LABS: Hemoglobin 8.1, white count 4.1, BUN 16, creatinine 0.65. DIAGNOSTIC IMPRESSION AND PLAN: Patient admitted to the hospital with erosion of the gastric band, status post open removal of the dislodged gastric band. The patient lost IV. Antibiotics switched over to Ceftin, Flagyl and Diflucan for about a week and close outpatient followup. MMODL / IJN: [id number] /
--- NOTE | 2019-06-21 14:36 | P.PN ---
Subjective Progress Note Date: 06/21/19 Principal diagnosis: This is a 68-year-old woman with past medical history of multiple medical problems who was admitted after laparoscopic lysis of adhesions and removal of an erosive gastric band that's being closely monitored at this time. Patient is currently tolerating clear liquids and ice chips per surgery. Surgery is following closely. Patient had an ultrasound of the left upper arm which shows a DVT of the left basilic vein as well as DVT into the axillary and subclavian veins. Patient was on a heparin drip. Vascular surgery was consult did and is recommending oral anticoagulation and oral antibiotics if okayed by infectious disease. Patient is hemodynamically stable. Current hemoglobin is 8.5. Patient does have an abdominal band over the surgical incision and states that this helps when she coughs or laughs and gets up. Patient is walking with a steady gait and states it helps her pain. Patient denies any chest pain, shortness of breath, or palpitations at this time. Patient denies any nausea or vomiting and is tolerating ice chips. Family at the bedside. MELISSA drain is still showing serosanguineous output. 06/21/2019 Patient is sitting up in bed in no acute distress. Patient is having some abdominal discomfort at the incision sites on the left side. Patient is using abdominal binder which provides some relief. Patient does still have a MELISSA drain which she will be discharged with and following up with surgery in the outpatient setting in 1 week for recheck. The output in the MELISSA drain has decreased in volume amount. The PICC line was removed and patient has been taking oral anticoagulation and antibiotics since last night and tolerating well. Patient will be on Eliquis 10 mg BID for one week and then continue on Eliquis 5 mg BID. Patient's insurance was verified and covers anticoagulation at a co-pay of $12 per month. Patient denies any shortness of breath, chest pain, or palpitations at this time. Patient is still tolerating clear liquids at this time. She denies any nausea or vomiting. Patient has been up and walki ng with a steady gait and is achieving [id number] on her incentive spirometry today. Patient is eager to go home today but is concerned for her pain control she normally takes Ultram at home and this has not been helping. Surgery is following and will discharge the patient. Objective - Vital Signs Vital signs: Vital Signs Temp 99.5 F 06/21/19 07:00 Pulse 90 06/21/19 09:50 Resp 16 06/21/19 07:00 BP 160/89 06/21/19 07:00 Pulse Ox 98 06/21/19 07:00 Intake & Output 06/20/19 06/21/19 06/21/19 18:59 06:59 18:59 Intake Total 100 220 120 Output Total 50 Balance 50 220 120 Weight 95.8 kg Intake: Intake, IV Titration 0 Amount Heparin Sod,Pork in 0.45% 0 NaCl 25,000 unit In 0.45 % NaCl 1 250ml.bag @ 18 UNITS/KG/HR 14.656 mls/hr IV .Q17H4M REPLACED BY [facility] Rx#: [id number] Oral 100 220 120 Output: Drainage 50 Abdomen 50 Other: Voiding Method Toilet Toilet Toilet # Voids 1 - Exam Gen: This is a 68-year-old female sitting up in bed in no acute distress. Blood pressure is 160/89, pulse is 95, respirations are 16, temp is 99.5F, pulse ox is 98% on room air. HEENT: Head is atraumatic, normocephalic. Pupils equal, round. Sclerae is anicteric. NECK: Supple. No JVD. No lymphadenopathy. No thyromegaly. LUNGS: Breath sounds diminished at the bases. No wheezes or crackles noted. No intercostal retractions. HEART: Regular rate and rhythm. No murmur. S1 and S2 are muffled ABDOMEN: Soft. Bowel sounds are present. No masses. Mild tenderness at the surgical site of the lower abdomen and on the left side. Dressing is dry and intact with a MELISSA drain present. Abdominal binder present. EXTREMITIES: No pedal edema. No calf tenderness. Left upper extremity swelling has minimized. No redness or warmth noted NEUROLOGICAL: Patient is awake, alert and oriented x3. Cranial nerves 2 through 12 are grossly intact. - Labs CBC & Chem 7: 06/21/19 07:56 06/21/19 07:56 Labs: Abnormal Lab Results - Last 24 Hours (Table) 06/21/19 06/21/19 Range/Units 07:56 07:56 RBC 2.87 L (3.80-5.40) m/uL Hgb 8.1 L (11.4-16.0) gm/dL Hct 25.4 L (34.0-46.0) % Lymphocytes # 0.5 L (1.0-4.8) k/uL Chloride 108 H (98-107) mmol/L Calcium 7.9 L (8.4-10.2) mg/dL Assessment and Plan Assessment: Status post laparoscopic lysis of adhesions, removal of gastric band, and gastrography for gastric lap band erosion Anemia, normocytic possibly anemia of chronic disease: Current hemoglobin is 8.1. Patient is hemodynamically stable Left arm basilic vein thrombus as well as DVT into the axillary and subclavian veins by the PICC line: PICC line was removed. Patient is on oral anticoagulation and oral antibiotics Possible chemical peritonitis, some leakage from gastric contents Atelectasis as expected Cough, improved Hypoalbuminemia Interposed colon on the right with collection of gas in the right upper quadrant on computed tomography scan of the abdomen DVT prophylaxis: Was on heparin drip and has now transitioned to oral anticoagulants with Eliquis Recommendations and discussion: Recommend continue current medications, continue to monitor, continue symptomatic treatment. Patient is awaiting discharge per surgery team. PICC line was removed and is currently on oral antibiotics and oral anticoagulation. Infectious disease and surgery are following closely. Patient encouraged to continue incentive spirometry as she was reaching [phone] today. Guarded prognosis. Discharge to home today.
[2019-06-21 15:03] VITALS: BMI 37.4
== END 2019-06-21 14:58 | disposition home health service (06) | DRG 326 ==
LOC: 2ORMAIN 10:37 → 4SSUR 19:54
PROVIDERS: ADMIT Surgery; ATTEND Surgery
PROC: 0DQ60ZZ Repair Stomach, Open Approach (ICD-10-PCS; 2019-06-15)
PROC: 0DP Gastrointestinal System, Removal (ICD-10-PCS; principal; 2019-06-15 16:37)
PROC: 02HV33Z Insertion of Infusion Device into Superior Vena Cava, Percutaneous Approach (ICD-10-PCS; 2019-06-17)
PROC: 3E0436Z Introduction of Nutritional Substance into Central Vein, Percutaneous Approach (ICD-10-PCS; 2019-06-17)
PROC: 30233N1 Transfusion of Nonautologous Red Blood Cells into Peripheral Vein, Percutaneous Approach (ICD-10-PCS; 2019-06-17)
DX: K95.09 Other complications of gastric band procedure (principal); K65.8 Other peritonitis; E44.0 Moderate protein-calorie malnutrition; D62 Acute posthemorrhagic anemia; T82.868A Thrombosis due to vascular prosthetic devices, implants and grafts, initial encounter; K66.0 Peritoneal adhesions (postprocedural) (postinfection); M81.0 Age-related osteoporosis without current pathological fracture; Z96.653 Presence of artificial knee joint, bilateral; Y83.1 Surgical operation with implant of artificial internal device as the cause of abnormal reaction of the patient, or of later complication, without mention of misadventure at the time of the procedure; E88.09 Other disorders of plasma-protein metabolism, not elsewhere classified; Z90.11 Acquired absence of right breast and nipple; Z90.49 Acquired absence of other specified parts of digestive tract; Z85.3 Personal history of malignant neoplasm of breast; Z86.718 Personal history of other venous thrombosis and embolism; Z88.0 Allergy status to penicillin; Y84.8 Other medical procedures as the cause of abnormal reaction of the patient, or of later complication, without mention of misadventure at the time of the procedure; Z79.01 Long term (current) use of anticoagulants; Z87.11 Personal history of peptic ulcer disease
CPT/HCPCS: 36410; 36573; 71045; 74150; 74240; 76937; 80048; 80053; 82040; 82330; 83735; 84100; 84478; 85025; 85027; 85610; 85730; 86850; 86900; 86901; 86920; 94640

== ENCOUNTER 2019-06-27 11:10 | Inpatient (IN) | payer BC ==
--- NOTE | 2019-06-27 12:19 | XR ---
EXAMINATION TYPE: XR KUB DATE OF EXAM: 06/27/2019 12:12 PM CLINICAL HISTORY: History of recent gastric surgery June 17 with pain. TECHNIQUE: Two frontal KUB images of the abdomen are obtained. COMPARISON: CT abdomen June 19, 2019. Same day upper GI study. None. FINDINGS: Contrast from recent GI study remains within nondistended colon along the periphery. Percut aneous drainage catheter terminating in left upper quadrant remains present. Interval removal of naso gastric tube. Surgical clips epigastric region and left mid to lower abdomen are redemonstrated. Some paucity of bowel gas overall particularly small bowel gas. Persistent gas prominent colonic loop at the hepatic flexure. Persistent small left pleural effusion. Sclerosis at the pubic symphysis redemon strated. IMPRESSION: Overall nonspecific but favor nonobstructive bowel gas pattern.
--- NOTE | 2019-06-27 12:57 | ED ---
General Adult HPI - General Chief complaint: Abdominal Pain Stated complaint: Post surgery problems Time Seen by Provider: 06/27/19 11:10 Source: patient, RN notes reviewed Mode of arrival: wheelchair Limitations: no limitations - History of Present Illness Initial comments: This is a 68-year-old female who presents emergency Department with a past medi alvarez history significant for lap band. Patient's LAP-BAND had become necrotic and to be removed [address] Gore. According to the patient she had a PICC line in the left arm and that developed a DVT so that was removed and she is on eliquis. Patient states about 3 AM this morning she developed sudden right upper quadrant abdominal pain and has been severe ever since per patient states driving and caused her severe pain. She went to see her primary medical care doctor who sent to the emergency department immediately. Patient's physician did call ahead and he was concerned that she may be bleeding internally. Patient states she was nauseated but didn't vomit. Patient denies diarrhea per patient denies chest pain difficulty breathing shortest breath. Patient states she did need a blood transfusion when she was here for the surgery but normally she is not anemic. - Related Data Home Medications Medication Instructions Recorded Confirmed Apixaban [Eliquis] See Taper PO BID 06/27/19 06/27/19 traMADol HCl [Ultram] 50 mg PO Q4H PRN 06/27/19 06/27/19 Previous Rx's Medication Instructions Recorded Cefuroxime Axetil [Ceftin] 500 mg PO BID 7 Days #14 tab 06/21/19 Docusate [Colace] 100 mg PO BID #30 capsule 06/21/19 Fluconazole [Diflucan] 200 mg PO DAILY 7 Days #7 tab 06/21/19 metroNIDAZOLE [Flagyl] 500 mg PO TID 7 Days #21 tab 06/21/19 Allergies Allergy/AdvReac Type Severity Reaction Status Date / Time Penicillins Allergy Unknown Verified 06/27/19 11:52 Childhood Review of Systems ROS Statement: Those systems with pertinent positive or pertinent negative responses have been documented in the HPI. ROS Other: All systems not noted in ROS Statement are negative. Past Medical History Past Medical History: Cancer, Deep Vein Thrombosis (DVT), Osteoarthritis (OA) Additional Past Medical History / Comment(s): Right breast cancer (had mastectomy and chemotherapy Tamoxifen). Osteoporosis. Stenosis of neck and ba ck. dvt 1989 History of Any Multi-Drug Resistant Organisms: None Reported Past Surgical History: Bariatric Surgery, Orthopedic Surgery Additional Past Surgical History / Comment(s): Lap band placed 2006,. Bilateral knee replacement. Right mastectomy. lap band removal 06/15/2019 Past Anesthesia/Blood Transfusion Reactions: Postoperative Nausea & Vomiting (PONV) Additional Past Anesthesia/Blood Transfusion Reaction / Comment(s): has had a reaction to blood transfusion, hives (needed benadryl) Past Psychological History: No Psychological Hx Reported Smoking Status: Never smoker Past Alcohol Use History: Rare Past Drug Use History: None Reported General Exam - General Exam Comments Initial Comments: GENERAL: Patient is well-developed and well-nourished. Patient is nontoxic and well- hydrated and is in moderate distress. ENT: Neck is soft and supple. No significant lymphadenopathy is noted. Oropharynx is clear. Moist mucous membranes. Neck has full range of motion without eliciting any pain. EYES: The sclera were anicteric and conjunctiva are pale. Extraocular movements were intact and pupils were equal round and reactive to light. Eyelids were unremarkable. PULMONARY: Unlabored respirations. Good breath sounds bilaterally. No audible rales rhonchi or wheezing was noted. CARDIOVASCULAR: There is a regular rate and rhythm without any murmurs gallops or rubs. ABDOMEN: Patient has exquisite right upper quadrant pain. Patient has rebound tenderness in that area SKIN: Pale NEUROLOGIC: Patient is alert and oriented x3. Cranial nerves II through XII are grossly intact. Motor and sensory are also intact. Normal speech, volume and content. Symmetrical smile. MUSCULOSKELETAL: Normal extremities with adequate strength and full range of motion. No lower extremity swelling or edema. No calf tenderness. LYMPHATICS: No significant lymphadenopathy is noted PSYCHIATRIC: Normal psychiatric evaluation. Limitations: no limitations Course Vital Signs 06/27/19 06/27/19 06/27/19 11:13 12:59 13:53 Temperature 97.9 F Pulse Rate 78 76 92 Respiratory 18 20 20 Rate Blood Pressure 100/58 110/78 O2 Sat by Pulse 99 98 98 Oximetry Medical Decision Making - Medical Decision Making CAT scan showed increased fluid in the abdomen and pelvis the possibility of obtaining blood. This poke with Dr. Gore about the results he stated he'll be right down to see the patient in the emergency department. Dr. Gore wanted a repeat CAT scan with oral contrast. I discussed CAT scan results with Dr. Gore. CAT scan showed intramural and intraperitoneal bleeding which appears to be stopped at this point per Dr. Gore. Patient will be admitted to Dr. Gore and observed. - Lab Data Result diagrams: 06/27/19 12:58 06/27/19 12:58 Lab Results 06/27/19 06/27/19 06/27/19 Range/Units 12:50 12:58 12:58 WBC 13.2 H (3.8-10.6) k/uL RBC 3.03 L (3.80-5.40) m/uL Hgb 8.5 L (11.4-16.0) gm/dL Hct 26.7 L (34.0-46.0) % MCV 88.1 (80.0-100.0) fL MCH 28.0 (25.0-35.0) pg MCHC 31.8 (31.0-37.0) g/dL RDW 16.3 H (11.5-15.5) % Plt Count 455 H D (150-450) k/uL Neutrophils % 94 % Lymphocytes % 4 % Monocytes % 2 % Eosinophils % 0 % Basophils % 0 % Neutrophils # 12.3 H (1.3-7.7) k/uL Lymphocytes # 0.5 L (1.0-4.8) k/uL Monocytes # 0.2 (0-1.0) k/uL Eosinophils # 0.1 (0-0.7) k/uL Basophils # 0.0 (0-0.2) k/uL Hypochromasia Slight Poikilocytosis Slight Anisocytosis Slight PT (9.0-12.0) sec INR (<1.2) APTT (22.0-30.0) sec Sodium 136 L (137-145) mmol/L Potassium 4.7 (3.5-5.1) mmol/L Chloride 105 (98-107) mmol/L Carbon Dioxide 19 L (22-30) mmol/L Anion Gap 12 mmol/L BUN 14 (7-17) mg/dL Creatinine 0.72 (0.52-1.04) mg/dL Est GFR (CKD-EPI)AfAm >90 (>60 ml/min/1.73 sqM) Est GFR (CKD-EPI)NonAf 88 (>60 ml/min/1.73 sqM) Glucose 124 H (74-99) mg/dL Calcium 8.3 L (8.4-10.2) mg/dL Total Bilirubin 0.6 (0.2-1.3) mg/dL AST 70 H (14-36) U/L ALT 53 H (9-52) U/L Alkaline Phosphatase 67 (38-126) U/L Total Protein 4.9 L (6.3-8.2) g/dL Albumin 2.4 L (3.5-5.0) g/dL Amylase 43 (30-110) U/L Lipase 161 (23-300) U/L Blood Type O Negative Blood Type Recheck No Antibody Screen POSITIVE Spec Expiration Date 06/30/2019 - 235706/27/19 Range/Units 12:58 WBC (3.8-10.6) k/uL RBC (3.80-5.40) m/uL Hgb (11.4-16.0) gm/dL Hct (34.0-46.0) % MCV (80.0-100.0) fL MCH (25.0-35.0) pg MCHC (31.0-37.0) g/dL RDW (11.5-15.5) % Plt Count (150-450) k/uL Neutrophils % % Lymphocytes % % Monocytes % % Eosinophils % % Basophils % % Neutrophils # (1.3-7.7) k/uL Lymphocytes # (1.0-4.8) k/uL Monocytes # (0-1.0) k/uL Eosinophils # (0-0.7) k/uL Basophils # (0-0.2) k/uL Hypochromasia Poikilocytosis Anisocytosis PT 13.5 H (9.0-12.0) sec INR 1.3 H (<1.2) APTT 29.6 (22.0-30.0) sec Sodium (137-145) mmol/L Potassium (3.5-5.1) mmol/L Chloride (98-107) mmol/L Carbon Dioxide (22-30) mmol/L Anion Gap mmol/L BUN (7-17) mg/dL Creatinine (0.52-1.04) mg/dL Est GFR (CKD-EPI)AfAm (>60 ml/min/1.73 sqM) Est GFR (CKD-EPI)NonAf (>60 ml/min/1.73 sqM) Glucose (74-99) mg/dL Calcium (8.4-10.2) mg/dL Total Bilirubin (0.2-1.3) mg/dL AST (14-36) U/L ALT (9-52) U/L Alkaline Phosphatase (38-126) U/L Total Protein (6.3-8.2) g/dL Albumin (3.5-5.0) g/dL Amylase (30-110) U/L Lipase (23-300) U/L Blood Type Blood Type Recheck Antibody Screen Spec Expiration Date Disposition Clinical Impression: History of abdominal surgery, Intraperitoneal hemorrhage, Intramural hematoma Disposition: ADMITTED IP TO THIS HOSP Referrals: Nonstaff,Physician [Primary Care Provider] - 1-2 days Time of Disposition: 16:23
[2019-06-27] MEDS ORDERED: HYDROmorphone 0.5 MG/0.5 ML SYRINGE IVP STA ×3 (13:07→15:35)
[2019-06-27] MEDS ORDERED: SODIUM CHLORIDE 0.9% 1,000 ML IV STA (13:07)
[2019-06-27 13:13] LABS: Anisocytosis Slight; Basophils % (A) 0 %; Eosinophils # (A) 0.1 k/uL (0-0.7); Eosinophils % (A) 0 %; HCT 26.7 % (34.0-46.0); HGB 8.5 gm/dL (11.4-16.0); Hypochromasia Slight; Lymphocytes # (A) 0.5 k/uL (1.0-4.8); Lymphocytes % (A) 4 %; MCHC 31.8 g/dL (31.0-37.0); MCV 88.1 fL (80.0-100.0); Mean Platelet Volume 8.6; Monocytes # (A) 0.2 k/uL (0-1.0); Monocytes % (A) 2 %; Neutrophils # (A) 12.3 k/uL (1.3-7.7); Neutrophils % (A) 94 %; Poikilocytosis Slight; RBC 3.03 m/uL (3.80-5.40); RDW 16.3 % (11.5-15.5); WBC 13.2 k/uL (3.8-10.6)
[2019-06-27 13:23] LABS: INR 1.3 (<1.2); Partial Thromboplastin Time 29.6 sec (22.0-30.0); Prothrombin Time 13.5 sec (9.0-12.0)
[2019-06-27 13:24] LABS: ALT 53 U/L (9-52); AST 70 U/L (14-36); African American GFR (CKD) >90 (>60 ml/min/1.73 sqM); Albumin 2.4 g/dL (3.5-5.0); Alkaline Phosphatase 67 U/L (38-126); Amylase 43 U/L (30-110); Anion Gap 12 mmol/L; Blood Urea Nitrogen 14 mg/dL (7-17); Calcium 8.3 mg/dL (8.4-10.2); Carbon Dioxide 19 mmol/L (22-30); Chloride 105 mmol/L (98-107); Glucose 124 mg/dL (74-99); Non-African American GFR(CKD) 88 (>60 ml/min/1.73 sqM); Platelet Count 455 k/uL (150-450); Potassium 4.7 mmol/L (3.5-5.1); Sodium 136 mmol/L (137-145); Total Bilirubin 0.6 mg/dL (0.2-1.3); Total Protein 4.9 g/dL (6.3-8.2)
--- NOTE | 2019-06-27 13:35 | CT ---
EXAMINATION TYPE: CT abdomen pelvis w con DATE OF EXAM: 06/27/2019 HISTORY: Generalized pain history of stomach surgery June 17, 2019 CT DLP: 1011.4mGycm Automated Exposure Control for Dose Reduction was Utilized. CONTRAST: CT scan of the abdomen and pelvis is performed without oral but with IV Contrast, patient injected wi th 100 mL of Isovue 300. COMPARISON: CT abdomen and upper GI study June 19, 2019 FINDINGS: LUNG BASES:. Multiple tiny left greater than right pleural effusions are redemonstrated with associat ed left greater than right bibasilar compressive atelectasis. No significant change from prior CT. Ca lcification at level of mitral valve. Dystrophic calcification inferior right breast abutting skin caldera rface axial image 3 redemonstrated. Stable tiny pericardial effusion. LIVER/GB: Low dense gallstones identified within gallbladder lumen similar to prior. PANCREAS: Mild generalized fat replaced atrophy. SPLEEN: No significant abnormality is seen. ADRENALS: No significant abnormality is seen. KIDNEYS: No significant abnormality is seen. BOWEL evaluation of bowel is suboptimal secondary to lack of no enteric contrast. Stomach is poorly d istended and thus suboptimally evaluated. There is suggestion of wall thickening and/or gastric wall hematoma at distal body/antrum level axial image 30 with prominent hyperdense material identified. UTERUS/ADNEXA: Stable small size uterus. Prominent left-sided adnexal vessels could reflect product o f pelvic congestion syndrome. Correlate clinically. Poor visualization of gastroduodenal junction due to poor distention. Better visualization of second through fourth portion of duodenal sweep which sh ows no suspicious dilatation. Ligament of Treitz is displaced inferiorly presumed product of surgical change. Nondilated small bowel loops throughout the abdomen and upper pelvis centrally are present. Contrast from recent upper GI remains present in nondistended colon along the periphery. Distal colon ic diverticula are redemonstrated. LYMPH NODES: No greater than 1cm abdominal or pelvic lymph nodes are appreciated. OSSEOUS STRUCTURES: Slight grade 1 anterolisthesis L4 on L5 is present. OTHER: There is more prominent fluid in the bilateral paracolic gutters versus prior study. More prom inent fluid seen right infracolic gutter versus left side. There is hyperdense moderate amount of flu id in the pelvis. Hounsfield units average 10-25 though there may be volume averaging from adjacent c ontrast filled rectum. Cannot exclude blood product. Stable right-sided anterior percutaneous drainage catheter terminating in the left upper quadrant jus t below diaphragm. Overlying vertical skin josie are redemonstrated. Small fluid collection left an terior abdominal wall could reflect seroma axial image 33 not significantly changed from prior study axial image 38. IMPRESSION: Severe irregular hyperdensity distal stomach with increasing abdominal and pelvic fluid r aises concern for internal hemorrhage. Consider endoscopy and/or open surgical exploration. Drainage catheter tip is away from the area of clinical concern.
[2019-06-27] MEDS ORDERED: LEVOFLOXACIN 750MG-D5W PMX 750 MG in DEXTROSE/WATER 1 150ML.BAG IVPB STA (14:27)
[2019-06-27] MEDS ORDERED: SODIUM CHLORIDE 0.9% 1,000 ML IV ONE ×2 (14:28→16:17)
[2019-06-27] MEDS ORDERED: ONDANSETRON 4 MG/2 ML VIAL IVP PRN (16:18)
--- NOTE | 2019-06-27 16:18 | CT ---
EXAMINATION TYPE: CT abdomen pelvis wo con DATE OF EXAM: 06/27/2019 HISTORY: Abnormal prior CT scan of A/p. Generalized abdominal pain. CT DLP: 794.8 mGycm. Automated Exposure Control for Dose Reduction was Utilized. TECHNIQUE: CT scan of the abdomen and pelvis is repeated with oral but without IV contrast. COMPARISON: CT abdomen and pelvis earlier today FINDINGS: Within the limitations of a non-contrast study, the following observations are made. Please refer to CT abdomen and pelvis report for complete details outside the bowel as there is no si gnificant interval change. Persistent surgical sutures anterior to the gastroesophageal junction just below diaphragm are identi fied. Right-sided percutaneous drainage catheter courses just anterior to this terminating in the lef t upper quadrant similar to prior. Some lobulated soft tissue in the proximal stomach just below diap hragm involving left aspect of the fundus and cardia is identified axial image 37 and coronal image 6 6 could reflect product of surgery from lap band erosion. There is air-contrast level in stomach with similar distention to prior. There is narrowing of the distal stomach and antrum with contrast exten ding into duodenal sweep which also is narrowed at second portion. There is redemonstration of abnorm al hyperdense material anterior to the distal stomach and antrum extending to the left of midline mor e prominent from older CT. No contrast extravasation is identified. Findings are felt to reflect intr amural and extramural hemorrhage given the presence of increasing abdominal and pelvic fluid. Contras t from recent CT noted filling collecting systems and bladder on current study. IMPRESSION: Confirmation of suspected intramural and intraperitoneal hemorrhage felt centered anterio r to the distal stomach. No obvious feeding vessel identified on prior study but study was suboptimal as it is performed in a portal venous phase versus true arterial phase. Consider catheter angiogram or surgical exploration versus close monitoring based on clinical correlation.
--- NOTE | 2019-06-27 16:43 | P.GSHP ---
History of Present Illness H&P Date: 06/27/19 Chief Complaint: Abdominal pain This is a 68-year-old female who presented to the emergency room with complaints of abdominal pain. Patient underwent recent removal of LAP-BAND for gastric erosion on June 15. Patient developed a subclavian DVT from a PICC line which required she will follow-up this. Patient states that she was well until about 3:00 this morning when she developed sudden acute abdominal pain. She noticed some bloody discharge in her MELISSA drain. Patient underwent CAT scan in the emergency room which shows evidence of any intra-mural hematoma of the stomach wall as well as some free intraperitoneal fluid which could represent blood. There is no evidence of any perforation of the stomach there is no extravasation of contrast. Past Medical History Past Medical History: Cancer, Deep Vein Thrombosis (DVT), Osteoarthritis (OA) Additional Past Medical History / Comment(s): Right breast cancer (had mastectomy and chemotherapy Tamoxifen). Osteoporosis. Stenosis of neck and back. dvt 1988 History of Any Multi-Drug Resistant Organisms: None Reported Past Surgical History: Bariatric Surgery, Orthopedic Surgery Additional Past Surgical History / Comment(s): Lap band placed 2006,. Bilateral knee replacement. Right mastectomy. lap band removal 06/15/2019 Past Anesthesia/Blood Transfusion Reactions: Postoperative Nausea & Vomiting (PONV) Additional Past Anesthesia/Blood Transfusion Reaction / Comment(s): has had a reaction to blood transfusion, hives (needed benadryl) Past Psychological History: No Psychological Hx Reported Smoking Status: Never smoker Past Alcohol Use History: Rare Past Drug Use History: None Reported Medications and Allergies Home Medications Medication Instructions Recorded Confirmed Type Cefuroxime Axetil [Ceftin] 500 mg PO BID 7 Days #14 tab 06/21/19 06/27/19 Rx Docusate [Colace] 100 mg PO BID #30 capsule 06/21/19 06/27/19 Rx RX: Fluconazole [Diflucan] 200 mg PO DAILY 7 Days #7 tab 06/21/19 06/27/19 Rx RX: metroNIDAZOLE [Flagyl] 500 mg PO TID 7 Days #21 tab 06/21/19 06/27/19 Rx Apixaban [Eliquis] See Taper PO BID 06/27/19 06/27/19 History RX: traMADol HCl [Ultram] 50 mg PO Q4H PRN 06/27/19 06/27/19 History Allergies Allergy/AdvReac Type Severity Reaction Status Date / Time Penicillins Allergy Unknown Verified 06/27/19 11:52 Childhood Surgical - Exam Vital Signs Temp Pulse Resp Pulse Ox 97.9 F 78 18 99 06/27/19 11:13 06/27/19 11:13 06/27/19 11:13 06/27/19 11:13 - General well developed, well nourished, no distress - Eyes PERRL - ENT normal pinna - Neck no masses - Respiratory normal expansion - Cardiovascular Rhythm: regular - Abdomen Mild diffuse tenderness. MELISSA drain has serosanguineous drainage Abdomen: soft Results - Labs 06/27/19 12:58 06/27/19 12:58 Abnormal Lab Results - Last 24 Hours (Table) 06/27/19 06/27/19 06/27/19 Range/Units 12:58 12:58 12:58 WBC 13.2 H (3.8-10.6) k/uL RBC 3.03 L (3.80-5.40) m/uL Hgb 8.5 L (11.4-16.0) gm/dL Hct 26.7 L (34.0-46.0) % RDW 16.3 H (11.5-15.5) % Plt Count 455 H D (150-450) k/uL Neutrophils # 12.3 H (1.3-7.7) k/uL Lymphocytes # 0.5 L (1.0-4.8) k/uL PT 13.5 H (9.0-12.0) sec INR 1.3 H (<1.2) Sodium 136 L (137-145) mmol/L Carbon Dioxide 19 L (22-30) mmol/L Glucose 124 H (74-99) mg/dL Calcium 8.3 L (8.4-10.2) mg/dL AST 70 H (14-36) U/L ALT 53 H (9-52) U/L Total Protein 4.9 L (6.3-8.2) g/dL Albumin 2.4 L (3.5-5.0) g/dL Diabetes panel 06/27/19 Range/Units 12:58 Sodium 136 L (137-145) mmol/L Potassium 4.7 (3.5-5.1) mmol/L Chloride 105 (98-107) mmol/L Carbon Dioxide 19 L (22-30) mmol/L BUN 14 (7-17) mg/dL Creatinine 0.72 (0.52-1.04) mg/dL Glucose 124 H (74-99) mg/dL Calcium 8.3 L (8.4-10.2) mg/dL AST 70 H (14-36) U/L ALT 53 H (9-52) U/L Alkaline Phosphatase 67 (38-126) U/L Total Protein 4.9 L (6.3-8.2) g/dL Albumin 2.4 L (3.5-5.0) g/dL Calcium panel 06/27/19 Range/Units 12:58 Calcium 8.3 L (8.4-10.2) mg/dL Albumin 2.4 L (3.5-5.0) g/dL Pituitary panel 06/27/19 Range/Units 12:58 Sodium 136 L (137-145) mmol/L Potassium 4.7 (3.5-5.1) mmol/L Chloride 105 (98-107) mmol/L Carbon Dioxide 19 L (22-30) mmol/L BUN 14 (7-17) mg/dL Creatinine 0.72 (0.52-1.04) mg/dL Glucose 124 H (74-99) mg/dL Calcium 8.3 L (8.4-10.2) mg/dL Adrenal panel 06/27/19 Range/Units 12:58 Sodium 136 L (137-145) mmol/L Potassium 4.7 (3.5-5.1) mmol/L Chloride 105 (98-107) mmol/L Carbon Dioxide 19 L (22-30) mmol/L BUN 14 (7-17) mg/dL Creatinine 0.72 (0.52-1.04) mg/dL Glucose 124 H (74-99) mg/dL Calcium 8.3 L (8.4-10.2) mg/dL Total Bilirubin 0.6 (0.2-1.3) mg/dL AST 70 H (14-36) U/L ALT 53 H (9-52) U/L Alkaline Phosphatase 67 (38-126) U/L Total Protein 4.9 L (6.3-8.2) g/dL Albumin 2.4 L (3.5-5.0) g/dL - Imaging CT scan - abdomen: report reviewed (Intramural gastric wall hematoma with possible peritoneal blood. There is no evidence of gastric perforation there is no evidence of gastric obstruction) Assessment and Plan Assessment: Intramural hematoma and possible intraperitoneal bleed secondary to eloquist. Patient will be observed closely. If she has any evidence of further bleeding she may require exploratory laparotomy.
[2019-06-27] MEDS: HYDROmorphone 0.5 MG/0.5 ML SYRINGE IVP PRN ×2 (19:20→23:36)
[2019-06-28] MEDS: LACTATED RINGERS 1,000 ML IV SCH ×3 (01:47→03:55)
[2019-06-28 04:27] LABS: Appearance,Urine Clear (Clear); Bilirubin,Urine Negative (Negative); Blood,Urine Negative (Negative); Color,Urine Yellow; Glucose,Urine (UA) Negative (Negative); Ketones,Urine 2+ (Negative); Leukocyte Esterase,Urine Negative (Negative); Nitrite,Urine Negative (Negative); Protein,Urine Trace (Negative); Urobilinogen,Urine <2.0 mg/dL (<2.0)
[2019-06-28 04:46] LABS: Specific Gravity,Urine >1.050 (1.001-1.035)
[2019-06-28] MEDS: HYDROmorphone 0.5 MG/0.5 ML SYRINGE IVP PRN ×4 (06:54→20:16)
[2019-06-28 07:31] LABS: Anisocytosis Slight; Basophils % (A) 0 %; Eosinophils # (A) 0.1 k/uL (0-0.7); Eosinophils % (A) 1 %; HCT 20.8 % (34.0-46.0); Hypochromasia Moderate; Lymphocytes # (A) 0.8 k/uL (1.0-4.8); Lymphocytes % (A) 14 %; MCH 28.2 pg (25.0-35.0); MCHC 31.3 g/dL (31.0-37.0); MCV 90.1 fL (80.0-100.0); Mean Platelet Volume 8.3; Monocytes # (A) 0.2 k/uL (0-1.0); Monocytes % (A) 4 %; Neutrophils # (A) 4.8 k/uL (1.3-7.7); Neutrophils % (A) 80 %; Platelet Count 371 k/uL (150-450); Poikilocytosis Slight; RDW 16.2 % (11.5-15.5); WBC 6.1 k/uL (3.8-10.6)
[2019-06-28 07:35] LABS: HGB 6.5 gm/dL (11.4-16.0)
[2019-06-28 10:30] VITALS: BMI 32.1
[2019-06-28] MEDS ORDERED: DOCUSATE 100 MG CAP PO PRN (13:44)
[2019-06-28] MEDS ORDERED: traMADol 50 MG TAB PO PRN (13:44)
[2019-06-28] MEDS: SODIUM CHLORIDE 0.9% 1,000 ML IV SCH ×2 (13:51→20:17)
--- NOTE | 2019-06-28 13:53 | P.CONS ---
History of Present Illness - History of Present Illness This is a 68 years old female with past medical history of osteoarthritis, right breast cancer status post mastectomy and chemotherapy, osteoporosis, morbid obesity. She was recently admitted to the hospital for laparoscopic lysis of adhesions and removal of an erosive gastric band , her hospital course was complicated by left upper arm DVT secondary to PICC line which was removed. Presents this time with abdominal pain with some bloody discharge from her MELISSA, patient has pain and tenderness with rebound tenderness in the right middle abdomen next to the umbilicus. No nausea vomiting or diarrhea. Vitals were stable. showing WBC of 6.1K, hemoglobin dropped to 6.5 platelets within normal limits. BMP is unremarkable except for mild hyponatremia had mildly elevated liver enzymes. CT of the abdomen and pelvis: Intramural intraoperative peritoneal hemorrhage Review of Systems CONSTITUTIONAL: No fever, no malaise, no fatigue. HEENT: No recent visual problems or hearing problems. Denied any sore throat. CARDIOVASCULAR: No orthopnea, PND, no palpitations, no syncope. PULMONARY: No shortness of breath, no cough, no hemoptysis. GASTROINTESTINAL: No diarrhea, no nausea, no vomiting, no abdominal pain. Normoactive bowel sounds. NEUROLOGICAL: No headaches, no weakness, no numbness. HEMATOLOGICAL: Denies any bleeding or petechiae. GENITOURINARY: Denies any burning micturition, frequency, or urgency. MUSCULOSKELETAL/RHEUMATOLOGICAL: Denies any joint pain, swelling, or any muscle pain. ENDOCRINE: Denies any polyuria or polydipsia. Past Medical History Past Medical History: Cancer, Deep Vein Thrombosis (DVT), Osteoarthritis (OA) Additional Past Medical History / Comment(s): Right breast cancer (had mastectomy and chemotherapy Tamoxifen). Osteoporosis. Stenosis of neck and back. dvt 1989 History of Any Multi-Drug Resistant Organisms: None Reported Past Surgical History: Bariatric Surgery, Orthopedic Surgery Additional Past Surgical History / Comment(s): Lap band placed 2006,. Bilateral knee replacement. Right mastectomy. lap band removal 06/15/2019 Past Anesthesia/Blood Transfusion Reactions: Postoperative Nausea & Vomiting (PONV) Additional Past Anesthesia/Blood Transfusion Reaction / Comm: has had a reaction to blood transfusion, hives (needed benadryl) Past Psychological History: No Psychological Hx Reported Smoking Status: Never smoker Past Alcohol Use History: Rare Past Drug Use History: None Reported - Past Family History Son(s) Family Medical History: Seizure Disorder Additional Family Medical History / Comment(s): tubs placed in ears times 4, torn rotator cuff right shoulder, Medications and Allergies Home Medications Medication Instructions Recorded Confirmed Type Cefuroxime Axetil [Ceftin] 500 mg PO BID 7 Days #14 tab 06/21/19 06/27/19 Rx Docusate [Colace] 100 mg PO BID #30 capsule 06/21/19 06/27/19 Rx Fluconazole [Diflucan] 200 mg PO DAILY 7 Days #7 tab 06/21/19 06/27/19 Rx metroNIDAZOLE [Flagyl] 500 mg PO TID 7 Days #21 tab 06/21/19 06/27/19 Rx Apixaban [Eliquis] See Taper PO BID 06/27/19 06/27/19 History traMADol HCl [Ultram] 50 mg PO Q4H PRN 06/27/19 06/27/19 History Allergies Allergy/AdvReac Type Severity Reaction Status Date / Time Penicillins Allergy Unknown Verified 06/27/19 11:52 Childhood Physical Exam Vitals: Vital Signs Temp Pulse Pulse Pulse Resp BP BP 06/28/19 11:47 97.6 F 91 20 130/80 06/28/19 11:17 98.0 F 92 20 126/70 06/28/19 11:14 98.1 F 06/28/19 11:07 99 20 136/79 06/28/19 07:49 98.3 F 94 16 06/28/19 07:10 110/68 06/28/19 06:50 16 06/28/19 05:36 110/60 06/28/19 02:40 98.7 F 72 160/80 06/28/19 00:17 99.4 F 111 H 16 90/50 06/27/19 20:25 100/50 06/27/19 20:14 99.9 F H 91 16 06/27/19 19:34 98.2 F 81 18 110/78 06/27/19 17:49 92 18 100/62 06/27/19 15:25 91 16 118/78 06/27/19 13:53 92 20 110/78 Pulse Ox 06/28/19 11:47 06/28/19 11:17 06/28/19 11:14 06/28/19 11:07 06/28/19 07:49 97 06/28/19 07:10 06/28/19 06:50 06/28/19 05:36 06/28/19 02:40 06/28/19 00:17 97 06/27/19 20:25 06/27/19 20:14 100 06/27/19 19:34 98 06/27/19 17:49 98 06/27/19 15:25 98 06/27/19 13:53 98 Intake and Output 06/27/19 06/28/19 06/28/19 22:59 06:59 14:59 Intake Total 0 310 Output Total 350 290 Balance -350 -290 310 Intake: Oral 0 Blood Product 310 Rc As-1 Unit 310 [id number] Output: Drainage 40 Left Abdomen 40 Urine 350 250 Other: Voiding Method Toilet Toilet # Voids 1 Weight 82.1 kg gENERAL: The patient is alert and oriented x3, not in any acute distress. Well developed, well nourished. HEENT: Pupils are round and equally reacting to light. EOMI. No scleral icterus. No conjunctival pallor. Normocephalic, atraumatic. No pharyngeal erythema. No thyromegaly. CARDIOVASCULAR: S1 and S2 present. No murmurs, rubs, or gallops. PULMONARY: Chest is clear to auscultation, no wheezing or crackles. ABDOMEN: Soft, nontender, nondistended, normoactive bowel sounds. No palpable organomegaly. MUSCULOSKELETAL: No joint swelling or deformity. EXTREMITIES: No cyanosis, clubbing, or pedal edema. NEUROLOGICAL: Gross neurological examination did not reveal any focal deficits. SKIN: No rashes. Results CBC & Chem 7: 06/28/19 06:56 06/27/19 12:58 Labs: Abnormal Lab Results - Last 24 Hours (Table) 06/27/19 06/27/19 06/28/19 Range/Units 12:50 22:41 06:56 RBC 2.30 L (3.80-5.40) m/uL Hgb 6.5 L* D (11.4-16.0) gm/dL Hct 20.8 L (34.0-46.0) % RDW 16.2 H (11.5-15.5) % Lymphocytes # 0.8 L (1.0-4.8) k/uL Ur Specific [place] >1.050 H (1.001-1.035) Urine Protein Trace H (Negative) Urine Ketones 2+ H (Negative) Crossmatch See Detail Assessment and Plan Assessment: Gastric wall hematoma and intraparenchymal hemorrhage Morbid obesity, status post laparoscopic lysis of adhesions and removal of an erosive gastric band Left upper extremity DVTs related to PICC line on oral anticoagulant. Hold Eliquis in view of her bleed History of right breast cancer status post mastectomy and chemotherapy History of posterior arthritis History of osteoporosis Plan: This pleasant 68 years old female who presents with intraoperative peritoneal and intramural gastric hemorrhage. When she was on Eliquis for her left upper extremity DVT. Hold Eliquis. Transfuse blood to keep hemoglobin more than 7. Labs and medication were reviewed.. Continue same treatment. Continue with symptomatic treatment. Resume home medication. Monitor lytes and vitals. DVT and GI prophylaxis. Further recommendations of the clinical course of the patient DVT prophylaxis: No anticoagulation in view of intraperitoneal hemorrhage GI Prophylaxis: Protonix Prognosis is guarded
--- NOTE | 2019-06-28 15:24 | P.PN ---
Subjective Progress Note Date: 06/28/19 CHIEF COMPLAINT: Abdominal pain HISTORY OF PRESENT ILLNESS: Patient seen and examined this morning at the bedside. She reports abdominal pain but states it has improved since yesterday. She reports feeling mild shortness of breath. Hemoglobin this morning 6.5. PHYSICAL EXAM: VITAL SIGNS: Reviewed. GENERAL: Well-developed in no acute distress. Appears pale. HEENT: No sclera icterus. Extraocular movements grossly intact. Moist buccal mucosa. Head is atraumatic, normocephalic. ABDOMEN: Soft. Nondistended. Mild tenderness upon palpation. MELISSA drain with serosanguineous drainage. NEUROLOGIC: Alert and oriented. Cranial nerves II through XII grossly intact. ASSESSMENT: 1. Acute blood loss anemia secondary to Intramural hematoma and possible intraperitoneal bleed 2. Recent removal of lap band secondary to gastric erosion 3. Recent diagnosis of left upper extremity DVT, discharged home on Eliquis PLAN: 1. Nothing by mouth. Continue IV fluids 2. 2 units RBC transfusion. Continue to monitor hemoglobin 3. Continue to monitor drainage from MELISSA drain 4. Incentive spirometer 10 times an hour while awake 5. Activity as tolerated. Patient encouraged to be up in the chair today 6. Continue to hold Eliquis. SCDs to bilateral lower summary for DVT prophylaxis 7. Consult Dr. Wolf as he saw patient during recent hospitalization 8. Optifoam dressings removed at the bedside. New optifoam dressings ordered for abdominal incisions and around MELISSA drain Nurse practitioner note has been reviewed by physician. Signing provider agrees with the documented findings, assessment, and plan of care. Objective - Vital Signs Vital signs: Vital Signs Temp 98.6 F 06/28/19 14:18 Pulse 91 06/28/19 14:18 Resp 16 06/28/19 14:18 BP 144/78 06/28/19 14:18 Pulse Ox 97 06/28/19 07:49 Intake & Output 06/27/19 06/28/19 06/28/19 18:59 06:59 18:59 Intake Total 0 310 Output Total 640 Balance -640 310 Weight 82.1 kg 82.1 kg Intake: Oral 0 Blood Product 310 Rc As-1 Unit 310 [id number] Rc Pheresis As-3 Unit 0 [id number] Output: Drainage 40 Left Abdomen 40 Urine 600 Other: Voiding Method Toilet # Voids 1 - Labs CBC & Chem 7: 06/28/19 06:56 06/27/19 12:58 Labs: Abnormal Lab Results - Last 24 Hours (Table) 06/27/19 06/27/19 06/28/19 Range/Units 12:50 22:41 06:56 RBC 2.30 L (3.80-5.40) m/uL Hgb 6.5 L* D (11.4-16.0) gm/dL Hct 20.8 L (34.0-46.0) % RDW 16.2 H (11.5-15.5) % Lymphocytes # 0.8 L (1.0-4.8) k/uL Ur Specific [place] >1.050 H (1.001-1.035) Urine Protein Trace H (Negative) Urine Ketones 2+ H (Negative) Crossmatch See Detail
[2019-06-28] MEDS: PANTOPRAZOLE 40 MG/10 ML VIAL IVP SCH ×2 (15:38→20:16)
[2019-06-28] MEDS: metroNIDAZOLE 500 MG TAB PO SCH ×2 (15:40→21:54)
[2019-06-28] MEDS: LEVOFLOXACIN 750MG-D5W PMX 750 MG in DEXTROSE/WATER 1 150ML.BAG IVPB SCH (15:41)
[2019-06-28 17:03] LABS: Hypochromasia Slight; MCH 28.6 pg (25.0-35.0); MCHC 32.3 g/dL (31.0-37.0); MCV 88.6 fL (80.0-100.0); Mean Platelet Volume 8.3; Platelet Count 440 k/uL (150-450); Poikilocytosis Slight; RBC 3.16 m/uL (3.80-5.40)
--- NOTE | 2019-06-28 22:54 | CONS ---
CONSULTATION DATE OF SERVICE: 06/28/2019 REASON FOR CONSULTATION: Leukocytosis and a question abdominal infection. HISTORY OF PRESENT ILLNESS: The patient is a 68-year-old female who was recently admitted to this facility, as the patient did have gastric erosion of the lap band. The patient did have a laparotomy with removal of the lap band and correction of the gastric defect. There was no evidence of any purulence. She was not running any fever. The patient was treated with Rocephin, Flagyl and Diflucan in view of her PENICILLIN ALLERGY. She did get a PICC line for nutrition as well as antibiotic. That developed a DVT and subsequently had to be discontinued. The patient was started on Eliquis. The patient was discharged home on oral Ceftin, Flagyl and Diflucan. The patient presented to the office yesterday for a hospital followup. The patient was looking very pale and apparently had developed pain to the abdominal area that started around 3 in the morning. The patient's pain was severe, excruciating, almost 10/10, with associated nausea but no vomiting. With these symptoms, the patient was sent to the ER right away. The patient on presentation to hospital did have a KUB with findings overall nonspecific but favor non-obstructive bowel gas pattern. The patient did have a CT of abdomen and pelvis which showed severe irregular hyperdensity distal stomach with increased abdominal and pelvic fluid; concern for internal hemorrhage. Repeat CT of abdomen and pelvis suspected intramural and intraperitoneal hemorrhage felt centered around to the distal stomach. No obvious feeding vessel identified. The patient was afebrile on presentation to the hospital with a highest temperature of 99.9. She did have elevated white count 13.2 and it has subsequently normalized. She did receive two units of blood transfusion. She was started on Levaquin and Flagyl empirically. Infection Disease was consulted for further recommendation regarding antibiotic. REVIEW OF SYSTEMS: Positive points have been mentioned in the HPI. Rest of the systems are negative. PAST MEDICAL HISTORY: 1. DVT. 2. Osteoarthritis. 3. Right breast cancer. 4. Osteoporosis. PAST SURGICAL HISTORY: 1. Bariatric surgery with recent lap band removal. 2. Bilateral knee replacement. 3. Right mastectomy. SOCIAL HISTORY: No history of smoking. Rarely drinks. . Lives with her . FAMILY HISTORY: No pertinent findings noted. ALLERGIES: PENICILLIN; childhood reaction. Tolerated cephalosporin without any problem. CURRENT MEDICATIONS: 1. Colace. 2. Dilaudid. 3. Levaquin. 4. Flagyl. 5. Zofran. 6. Protonix. 7. Ultram. PHYSICAL EXAMINATION: Blood pressure is 144/78 with a pulse of 91, temperature 98.6. She is 100% on room air. General description is an elderly female lying in bed in no distress. No tachypnea or accessory muscle of respiration use. HEENT examination shows slight pallor. No scleral icterus. Oral mucosa membrane is dry. NECK: Trachea is central. No thyromegaly. LUNGS: Unlabored breathing. Clear to auscultation anteriorly. No wheeze or crackle. HEART: S1, S2. Regular rate and rhythm. ABDOMEN: Soft. Mildly distended. No guarding or rigidity. EXTREMITIES: No edema of the feet. SKIN EXAMINATION: No rash or mass palpable. Neurologically patient is awake, alert, oriented x3. Mood and affect normal. LABS/IMAGING: Hemoglobin 6.5, white count 6.1. Initial white count was 13.2 with a BUN of 14, creatinine 0.72. UA has been negative. CT of abdomen and pelvis as mentioned above, with no evidence of any abscess. DIAGNOSTIC IMPRESSION AND PLAN: 1. Patient with leukocytosis, more likely reactive. Clinical suspicion is low for underlying deep infection. Patient admitted to hospital with possible intramural bleeding associated with recent use of Eliquis for DVT. 2. Patient with PENICILLIN ALLERGY. That will limit the number of antibiotics safe to use. PLAN: 1. Patient to continue with Levaquin 750 and Flagyl 500 every 8 hours. 2. Gentle IV fluid. 3. Will follow clinical condition and culture to further adjust medication if needed. Thank you for this consultation. Will follow this patient along with you. Family at the bedside. Their questions were answered. MMODL / IJN: [id number] / EUGENE
[2019-06-29] MEDS: SODIUM CHLORIDE 0.9% 1,000 ML IV SCH ×3 (04:41→19:55)
[2019-06-29] MEDS: HYDROmorphone 0.5 MG/0.5 ML SYRINGE IVP PRN ×4 (05:02→18:16)
[2019-06-29] MEDS: metroNIDAZOLE 500 MG TAB PO SCH ×3 (07:06→21:41)
[2019-06-29] MEDS: PANTOPRAZOLE 40 MG/10 ML VIAL IVP SCH ×2 (07:06→21:41)
[2019-06-29 08:22] LABS: Anisocytosis Slight; Basophils % (A) 0 %; Eosinophils # (A) 0.1 k/uL (0-0.7); Eosinophils % (A) 2 %; HGB 8.1 gm/dL (11.4-16.0); Hypochromasia Moderate; Lymphocytes # (A) 0.7 k/uL (1.0-4.8); Lymphocytes % (A) 12 %; MCH 29.1 pg (25.0-35.0); MCHC 32.4 g/dL (31.0-37.0); MCV 89.8 fL (80.0-100.0); Mean Platelet Volume 8.6; Monocytes # (A) 0.2 k/uL (0-1.0); Monocytes % (A) 4 %; Neutrophils # (A) 4.8 k/uL (1.3-7.7); Neutrophils % (A) 81 %; Platelet Count 375 k/uL (150-450); Poikilocytosis Slight; RBC 2.78 m/uL (3.80-5.40); RDW 16.6 % (11.5-15.5)
[2019-06-29 08:42] LABS: ALT 36 U/L (9-52); AST 32 U/L (14-36); African American GFR (CKD) >90 (>60 ml/min/1.73 sqM); Albumin 2.3 g/dL (3.5-5.0); Alkaline Phosphatase 56 U/L (38-126); Anion Gap 9 mmol/L; Bilirubin, Delta 0.3 mg/dL (0.0-0.2); Bilirubin,Unconjugated 0.3 mg/dL (0.0-1.1); Blood Urea Nitrogen 7 mg/dL (7-17); Calcium 7.9 mg/dL (8.4-10.2); Carbon Dioxide 21 mmol/L (22-30); Chloride 108 mmol/L (98-107); Glucose 72 mg/dL (74-99); Non-African American GFR(CKD) >90 (>60 ml/min/1.73 sqM); Potassium 3.8 mmol/L (3.5-5.1); Sodium 138 mmol/L (137-145); Total Bilirubin 0.6 mg/dL (0.2-1.3); Total Protein 4.9 g/dL (6.3-8.2)
--- NOTE | 2019-06-29 10:36 | US ---
EXAMINATION TYPE: US venous doppler duplex UE LT DATE OF EXAM: 06/29/2019 COMPARISON: 06/19/2019 CLINICAL HISTORY: DVT follow up. Left arm swelling, previous DVT and SVT, not on blood thinners SIDE PERFORMED: Left Grayscale, color doppler, spectral doppler imaging performed of the deep veins of the upper extremiti es. Left Arm: Positive for DVT in subclavian vein, positive for SVT in basilic vein IMPRESSION: Deep venous thrombosis within the subclavian vein and superficial venous thrombosis of the basilic ve in. These were seen on the exam of 06/19/2019 at the same locations. The previously seen axillary vein thrombus is no longer evident.
--- NOTE | 2019-06-29 12:27 | P.PN ---
Subjective Progress Note Date: 06/29/19 CHIEF COMPLAINT: Abdominal pain HISTORY OF PRESENT ILLNESS: Patient seen and examined this morning at the bedside. Patient reports abdominal pain as "slight discomfort" this morning. Denies nausea or vomiting. Reports shortness of breath has improved. She receive d 2 units RBC transfusion yesterday. hemoglobin this morning is 8.1. MELISSA drain with minimal serosanguineous drainage. Nursing reports 10 mL emptied overnight. PHYSICAL EXAM: VITAL SIGNS: Reviewed. GENERAL: Well-developed in no acute distress. HEENT: No sclera icterus. Extraocular movements grossly intact. Moist buccal mucosa. Head is atraumatic, normocephalic. ABDOMEN: Soft. Nondistended. Mild tenderness upon palpation. MELISSA drain with serosanguineous drainage. NEUROLOGIC: Alert and oriented. Cranial nerves II through XII grossly intact. ASSESSMENT: 1. Acute blood loss anemia secondary to Intramural hematoma and possible intraperitoneal bleed 2. Recent removal of lap band secondary to gastric erosion 3. Recent diagnosis of left upper extremity DVT, discharged home on Eliquis PLAN: 1. Begin clear liquid diet 2. Monitor hemoglobin 3. Continue to monitor drainage from MELISSA drain 4. Incentive spirometer 10 times an hour while awake 5. Activity as tolerated 6. Continue to hold Eliquis. SCDs to bilateral lower extremities for DVT prophylaxis 7. Case discussed with Dr. Wolf at bedside who recommends hem/onc consult due to result left upper extremity DVT. Will consult Dr. Leiva for evaluation Nurse practitioner note has been reviewed by physician. Signing provider agrees with the documented findings, assessment, and plan of care. Objective - Vital Signs Vital signs: Vital Signs Temp 99.2 F 06/29/19 06:58 Pulse 91 06/29/19 06:58 Resp 17 06/29/19 07:10 BP 150/90 06/29/19 08:49 Pulse Ox 96 06/29/19 06:58 Intake & Output 06/28/19 06/29/19 06/29/19 18:59 06:59 18:59 Intake Total 620 30 Output Total 20 Balance 620 10 Weight 82.1 kg Intake: Oral 30 Blood Product 620 Rc As-1 Unit 310 [id number] Rc Pheresis As-3 Unit 310 [id number] Output: Drainage 20 Left Abdomen 20 Other: Voiding Method Toilet Toilet # Voids 3 1 - Labs CBC & Chem 7: 08/07/19 07:17 06/29/19 07:17 Labs: Abnormal Lab Results - Last 24 Hours (Table) 06/27/19 06/28/19 06/29/19 Range/Units 12:50 16:17 07:17 RBC 3.16 L 2.78 L (3.80-5.40) m/uL Hgb 9.0 L D 8.1 L (11.4-16.0) gm/dL Hct 28.0 L 25.0 L (34.0-46.0) % RDW 16.0 H 16.6 H (11.5-15.5) % Lymphocytes # 0.7 L (1.0-4.8) k/uL Chloride (98-107) mmol/L Carbon Dioxide (22-30) mmol/L Glucose (74-99) mg/dL Calcium (8.4-10.2) mg/dL Delta Bilirubin (0.0-0.2) mg/dL Total Protein (6.3-8.2) g/dL Albumin (3.5-5.0) g/dL Crossmatch See Detail 06/29/19 Range/Units 07:17 RBC (3.80-5.40) m/uL Hgb (11.4-16.0) gm/dL Hct (34.0-46.0) % RDW (11.5-15.5) % Lymphocytes # (1.0-4.8) k/uL Chloride 108 H (98-107) mmol/L Carbon Dioxide 21 L (22-30) mmol/L Glucose 72 L (74-99) mg/dL Calcium 7.9 L (8.4-10.2) mg/dL Delta Bilirubin 0.3 H (0.0-0.2) mg/dL Total Protein 4.9 L (6.3-8.2) g/dL Albumin 2.3 L (3.5-5.0) g/dL Crossmatch Microbiology - Last 24 Hours (Table) 06/27/19 15:00 Blood Culture - Preliminary Blood No Growth after 24 hours
--- NOTE | 2019-06-29 12:35 | P.PN ---
Subjective This is a 68 years old female with past medical history of osteoarthritis, right breast cancer status post mastectomy and chemotherapy, osteoporosis, morbid obesity. She was recently admitted to the hospital for laparoscopic lysis of adhesions and removal of an erosive gastric band , her hospital course was complicated by left upper arm DVT secondary to PICC line which was removed. Presents this time with abdominal pain with some bloody discharge from her MELISSA, patient has pain and tenderness with rebound tenderness in the right middle abdo men next to the umbilicus. No nausea vomiting or diarrhea. Vitals were stable. showing WBC of 6.1K, hemoglobin dropped to 6.5 platelets within normal limits. BMP is unremarkable except for mild hyponatremia had mildly elevated liver enzymes. CT of the abdomen and pelvis: Intramural intraoperative peritoneal hemorrhage 06/29/2019 Patient feels better today, she is sitting on the chair fully awake with no chest pain or dyspnea. She said that her abdominal pain is better controlled today at 5/10, no nausea vomiting and she is tolerating liquid diet, no bowel movement but she is passing gases.Vitas looks stable. Hemoglobin is 8.1, rest of CBC. Ultrasound Doppler of the left upper extremity showing resistance thrombosis in the subclavian or superficial venous thrombosis.hematology consult is already called.also we will lower the fluid from 100 to 50 mL/h review of systems CONSTITUTIONAL: No fever, no malaise, no fatigue. HEENT: No recent visual problems or hearing problems. Denied any sore throat. CARDIOVASCULAR: No orthopnea, PND, no palpitations, no syncope. PULMONARY: No shortness of breath, no cough, no hemoptysis. GASTROINTESTINAL:Normoactive bowel sounds. NEUROLOGICAL: No headaches, no weakness, no numbness. HEMATOLOGICAL: Denies any bleeding or petechiae. GENITOURINARY: Denies any burning micturition, frequency, or urgency. MUSCULOSKELETAL/RHEUMATOLOGICAL: Denies any joint pain, swelling, or any muscle pain. ENDOCRINE: Denies any polyuria or polydipsia. Active Medications Generic Name Dose Route Start Last Admin Trade Name Freq PRN Reason Stop Dose Admin Docusate Sodium 100 mg 06/28/19 13:44 Colace PO BID PRN Constipation Hydromorphone HCl 0.5 mg 06/27/19 16:18 06/29/19 12:09 Dilaudid IVP 0.5 mg Q4HR PRN Administration Pain Levofloxacin 750 mg/ IV 150 mls @ 100 mls/hr 06/28/19 15:00 06/28/19 15:41 Solution IVPB 100 mls/hr Q24H JADA Administration Sodium Chloride 1,000 mls @ 50 mls/hr 06/28/19 10:45 06/29/19 04:41 Saline 0.9% IV Not Given .Q20H JADA Metronidazole 500 mg 06/28/19 16:00 06/29/19 07:06 Flagyl PO 500 mg TID JADA Administration Ondansetron HCl 4 mg 06/27/19 16:18 Zofran IVP Q6HR PRN Nausea And Vomiting Pantoprazole Sodium 40 mg 06/28/19 13:45 06/29/19 07:06 Protonix IVP 40 mg BID JADA Administration Tramadol HCl 50 mg 06/28/19 13:44 Ultram PO Q4H PRN Pain Objective - Vital Signs Vital signs: Vital Signs Temp 99.2 F 06/29/19 06:58 Pulse 91 06/29/19 06:58 Resp 17 06/29/19 07:10 BP 150/90 06/29/19 08:49 Pulse Ox 96 06/29/19 06:58 Intake & Output 06/28/19 06/29/19 06/29/19 18:59 06:59 18:59 Intake Total 620 30 Output Total 20 Balance 620 10 Weight 82.1 kg Intake: Oral 30 Blood Product 620 Rc As-1 Unit 310 [id number] Rc Pheresis As-3 Unit 310 [id number] Output: Drainage 20 Left Abdomen 20 Other: Voiding Method Toilet Toilet # Voids 3 1 - Exam GENERAL: The patient is alert and oriented x3, not in any acute distress. Well developed, well nourished. HEENT: Pupils are round and equally reacting to light. EOMI. No scleral icterus. No conjunctival pallor. Normocephalic, atraumatic. No pharyngeal erythema. No thyromegaly. CARDIOVASCULAR: S1 and S2 present. No murmurs, rubs, or gallops. PULMONARY: Chest is clear to auscultation, no wheezing or crackles. -ABDOMEN: Soft, epigastric tenderness but less rebound tenderness, nondistended, normoactive bowel sounds. No palpable organomegaly. MUSCULOSKELETAL: No joint swelling or deformity. EXTREMITIES: No cyanosis, clubbing, or pedal edema. NEUROLOGICAL: Gross neurological examination did not reveal any focal deficits. SKIN: No rashes. - Labs CBC & Chem 7: 06/29/19 07:17 06/29/19 07:17 Labs: Abnormal Lab Results - Last 24 Hours (Table) 06/27/19 06/28/19 06/29/19 Range/Units 12:50 16:17 07:17 RBC 3.16 L 2.78 L (3.80-5.40) m/uL Hgb 9.0 L D 8.1 L (11.4-16.0) gm/dL Hct 28.0 L 25.0 L (34.0-46.0) % RDW 16.0 H 16.6 H (11.5-15.5) % Lymphocytes # 0.7 L (1.0-4.8) k/uL Chloride (98-107) mmol/L Carbon Dioxide (22-30) mmol/L Glucose (74-99) mg/dL Calcium (8.4-10.2) mg/dL Delta Bilirubin (0.0-0.2) mg/dL Total Protein (6.3-8.2) g/dL Albumin (3.5-5.0) g/dL Crossmatch See Detail 06/29/19 Range/Units 07:17 RBC (3.80-5.40) m/uL Hgb (11.4-16.0) gm/dL Hct (34.0-46.0) % RDW (11.5-15.5) % Lymphocytes # (1.0-4.8) k/uL Chloride 108 H (98-107) mmol/L Carbon Dioxide 21 L (22-30) mmol/L Glucose 72 L (74-99) mg/dL Calcium 7.9 L (8.4-10.2) mg/dL Delta Bilirubin 0.3 H (0.0-0.2) mg/dL Total Protein 4.9 L (6.3-8.2) g/dL Albumin 2.3 L (3.5-5.0) g/dL Crossmatch Microbiology - Last 24 Hours (Table) 06/27/19 15:00 Blood Culture - Preliminary Blood No Growth after 24 hours Assessment and Plan Assessment: Gastric wall hematoma and intraparenchymal hemorrhage Morbid obesity, status post laparoscopic lysis of adhesions and removal of an erosive gastric band ResistantLeft upper extremity DVTs related to PICC line on oral anticoagulant. Hold Eliquis in view of her bleed. Hematology consult is called. History of right breast cancer status post mastectomy and chemotherapy History of posterior arthritis History of osteoporosis Plan: This pleasant 68 years old female who presents with intraoperative peritoneal and intramural gastric hemorrhage. When she was on Eliquis for her left upper extremity DVT. Hold Eliquis. Transfuse blood to keep hemoglobin more than 7.hematology consult is already being requested.Labs and medication were reviewed.. Continue same treatment. Continue with symptomatic treatment. Resume home medication. Monitor lytes and vitals. DVT and GI prophylaxis. Further recommendations of the clinical course of the patient DVT prophylaxis: No anticoagulation in view of intraperitoneal hemorrhage GI Prophylaxis: Protonix Prognosis is guarded
--- NOTE | 2019-06-29 13:41 | PN ---
PROGRESS NOTE DATE OF SERVICE: 06/29/2019 REASON FOR FOLLOWUP: Leukocytosis possible reactive. INTERVAL HISTORY: The patient is currently afebrile. The patient's abdominal pain has improved down to a dull ache now. The patient denies having nausea, no vomiting. No chest pain, shortness of breath or cough and no diarrhea. PHYSICAL EXAMINATION: On examination, blood pressure is 150/90 with a pulse 91, temperature 99.2. She is 96% on room air. General description is an elderly female, lying in bed in no distress. RESPIRATORY SYSTEM: Unlabored breathing with decreased breath sounds at the bases. No wheeze. HEART: S1, S2. Regular rate and rhythm. ABDOMEN: Soft, mildly distended. No guarding or rigidity. EXTREMITIES: No edema of the feet. LABS: Hemoglobin 8.1, white count 6.0, BUN of 7, creatinine 0.61. Electrolytes have been normal. DIAGNOSTIC IMPRESSION AND PLAN: Patient admitted to the hospital with abdominal pain. This patient noticed possible intramural hemorrhage of the stomach. No evidence of any perforation or no evidence of any abscess. Elevated white count more likely reactive. Currently covered with Levaquin and Flagyl, to continue. Monitoring clinical course closely. Family at the bedside. Their questions and concerns were answered. MMODL / IJN: [id number] / MTDD
[2019-06-29] MEDS: LEVOFLOXACIN 750MG-D5W PMX 750 MG in DEXTROSE/WATER 1 150ML.BAG IVPB SCH (14:58)
--- NOTE | 2019-06-29 18:08 | P.CONS ---
History of Present Illness - Reason for Consult Consult date: 06/29/19 provoked dvt Requesting physician: Mumtaz Parker - Chief Complaint Abdominal pain - History of Present Illness Eri is a 68 year old female with history of osteoarthritis, right breast cancer status post mastectomy and chemotherapy, osteoporosis, morbid obesity. She recently underwent laparoscopic lysis of adhesions and removal of an erosive gastric band , her hospital course was complicated by left upper arm DVT secondary to PICC line which was removed. She now represents with abdominal pain with some bloody discharge from her MELISSA, No nausea vomiting or diarrhea. on admission 6.5 platelets within normal limits. CT of the abdomen and pelvis: Intramural intraoperative peritoneal hemorrhage. Hematology has been consulted regarding anemia and VTE. Review of Systems A 14 point review of systems was assessed and completed and are all negative except for HPI Past Medical History Past Medical History: Cancer, Deep Vein Thrombosis (DVT), Osteoarthritis (OA) Additional Past Medical History / Comment(s): Right breast cancer (had mastec ledy and chemotherapy Tamoxifen). Osteoporosis. Stenosis of neck and back. dvt 1988 History of Any Multi-Drug Resistant Organisms: None Reported Past Surgical History: Bariatric Surgery, Orthopedic Surgery Additional Past Surgical History / Comment(s): Lap band placed 2006,. Bilateral knee replacement. Right mastectomy. lap band removal 06/15/2019 Past Anesthesia/Blood Transfusion Reactions: Postoperative Nausea & Vomiting (PONV) Additional Past Anesthesia/Blood Transfusion Reaction / Comm: has had a reaction to blood transfusion, hives (needed benadryl) Past Psychological History: No Psychological Hx Reported Smoking Status: Never smoker Past Alcohol Use History: Rare Past Drug Use History: None Reported - Past Family History Son(s) Family Medical History: Seizure Disorder Additional Family Medical History / Comment(s): tubs placed in ears times 4, torn rotator cuff right shoulder, Medications and Allergies Home Medications Medication Instructions Recorded Confirmed Type Cefuroxime Axetil [Ceftin] 500 mg PO BID 7 Days #14 tab 06/21/19 06/27/19 Rx Docusate [Colace] 100 mg PO BID #30 capsule 06/21/19 06/27/19 Rx Fluconazole [Diflucan] 200 mg PO DAILY 7 Days #7 tab 06/21/19 06/27/19 Rx metroNIDAZOLE [Flagyl] 500 mg PO TID 7 Days #21 tab 06/21/19 06/27/19 Rx Apixaban [Eliquis] See Taper PO BID 06/27/19 06/27/19 History traMADol HCl [Ultram] 50 mg PO Q4H PRN 06/27/19 06/27/19 History Allergies Allergy/AdvReac Type Severity Reaction Status Date / Time Penicillins Allergy Unknown Verified 06/27/19 11:52 Childhood Physical Exam Vitals: Vital Signs Temp Pulse Resp BP Pulse Ox 06/29/19 14:05 98.5 F 91 16 98 06/29/19 08:49 150/90 06/29/19 07:10 17 06/29/19 06:58 99.2 F 91 17 96 06/29/19 01:30 98.9 F 95 16 95 06/29/19 01:10 120/65 06/28/19 20:35 97.8 F 106 H 16 99 Intake and Output 06/29/19 06/29/19 06/29/19 06:59 14:59 22:59 Intake Total 0 300 Output Total 20 Balance -20 300 Intake: Oral 0 300 Output: Drainage 20 Left Abdomen 20 Other: Voiding Method Toilet # Voids 1 General: Alert and Oriented x3, No Acute Distress Head: Normocytic, Atraumatic Neck: Supple Mouth: No Lesions, No Thrush Eyes: Non-sclerotic No Palpable cervical, supraclavicular, axillary adenopathy Heart: Regular Rate, Regular Rhythm Lungs: Clear to Ausculations, No Wheeze, No Rhonchi, Diminishe bilateral lower lobes, No increased respiratory effort noted Abdomen: Soft, Non-Distended, Non-Tended, BSx4 Extremities: No Edema, Equal Strength Neurological: No Focal Defects: No sensory or motor deficits noted Psych: Calm and cooperative Results CBC & Chem 7: 06/30/19 07:15 06/30/19 07:15 Labs: Abnormal Lab Results - Last 24 Hours (Table) 06/29/19 06/29/19 Range/Units 07:17 07:17 RBC 2.78 L (3.80-5.40) m/uL Hgb 8.1 L (11.4-16.0) gm/dL Hct 25.0 L (34.0-46.0) % RDW 16.6 H (11.5-15.5) % Lymphocytes # 0.7 L (1.0-4.8) k/uL Chloride 108 H (98-107) mmol/L Carbon Dioxide 21 L (22-30) mmol/L Glucose 72 L (74-99) mg/dL Calcium 7.9 L (8.4-10.2) mg/dL Delta Bilirubin 0.3 H (0.0-0.2) mg/dL Total Protein 4.9 L (6.3-8.2) g/dL Albumin 2.3 L (3.5-5.0) g/dL Microbiology - Last 24 Hours (Table) 06/27/19 15:00 Blood Culture - Preliminary Blood No Growth after 24 hours Assessment and Plan Plan: Assessment and rec: Provoked Upper extremity DVT: - Anticoagulation has been on hold regarding blood loss anemia - Hold while immediate threat of bleeding - IVC will not be of benefit with Upper extremity VTE. - Surgery is following Normocytic Anemia: - Full anemia work-up in place. - Secondary to acute blood loss after surgery and intrabdominal hemorrhage - Monitor daily CBC and transfuse hemoglobin less than 7 Once immediate threat of bleeding resolved, would still recommendac therapy 3 months - BLE Dopplers rec - Await full work-up Give her line aspects in the care of this patient will follow along with you Physician Attestation: I have performed the full physical examination and reviewed the full history of this patient, as well as pertinent findings. I have created the compled impression and recommendations. I agree with the above dictation by MARTHA Thorne. This dictation has been written as a scribe.
--- NOTE | 2019-06-29 20:49 | US ---
EXAMINATION TYPE: US venous doppler duplex LE DATE OF EXAM: 06/29/2019 7:42 PM COMPARISON: None CLINICAL HISTORY: edema . Edema. Worse after blood transfusion yesterday. Hx DVT. Previous upper extr emity venous Doppler. Pt not on blood thinners. SIDE PERFORMED: Bilateral TECHNIQUE: The lower extremity deep venous system is examined utilizing real time linear array sonog yosvany with graded compression, doppler sonography and color-flow sonography. VESSELS IMAGED: External Iliac Vein (EIV) Common Femoral Vein Deep Femoral Vein Greater Saphenous Vein * Femoral Vein Popliteal Vein Proximal Calf Veins (* superficial vessels) IMPRESSION: RIGHT LOWER EXTREMITY: No evidence of DVT in veins imaged, although exam is limited. LEFT LOWER EXTREMITY: No evidence of DVT in veins imaged, although exam is limited.
[2019-06-29] MEDS: SENNOSIDES 8.6 MG TAB PO SCH (21:41)
[2019-06-30] MEDS: HYDROmorphone 0.5 MG/0.5 ML SYRINGE IVP PRN ×4 (00:47→13:34)
[2019-06-30 00:59] LABS: Protein, Total 4.4 g/dL (6.2-8.2)
[2019-06-30 02:44] LABS: Iron Saturation 7.61 (12.00-45.00); Iron(FE) 21 ug/dL (50-170); Total Iron Binding Capacity 276 ug/dL (228-460)
[2019-06-30 07:43] LABS: ALT 36 U/L (9-52); AST 32 U/L (14-36); African American GFR (CKD) >90 (>60 ml/min/1.73 sqM); Albumin 2.6 g/dL (3.5-5.0); Alkaline Phosphatase 72 U/L (38-126); Anion Gap 11 mmol/L; Blood Urea Nitrogen 5 mg/dL (7-17); Calcium 8.4 mg/dL (8.4-10.2); Carbon Dioxide 20 mmol/L (22-30); Chloride 108 mmol/L (98-107); Glucose 87 mg/dL (74-99); Non-African American GFR(CKD) >90 (>60 ml/min/1.73 sqM); Potassium 4.2 mmol/L (3.5-5.1); Sodium 139 mmol/L (137-145); Total Bilirubin 0.7 mg/dL (0.2-1.3); Total Protein 5.4 g/dL (6.3-8.2)
[2019-06-30 07:59] LABS: Anisocytosis Slight; Basophils % (A) 0 %; Eosinophils # (A) 0.1 k/uL (0-0.7); Eosinophils % (A) 1 %; HCT 30.3 % (34.0-46.0); Hypochromasia Moderate; Lymphocytes % (A) 11 %; MCH 28.5 pg (25.0-35.0); MCHC 31.8 g/dL (31.0-37.0); MCV 89.7 fL (80.0-100.0); Mean Platelet Volume 8.2; Monocytes # (A) 0.3 k/uL (0-1.0); Monocytes % (A) 4 %; Neutrophils # (A) 7.3 k/uL (1.3-7.7); Neutrophils % (A) 82 %; Platelet Count 579 k/uL (150-450); Poikilocytosis Slight; RBC 3.38 m/uL (3.80-5.40); RDW 16.8 % (11.5-15.5); WBC 8.9 k/uL (3.8-10.6)
[2019-06-30] MEDS: SENNOSIDES 8.6 MG TAB PO SCH (08:00)
[2019-06-30] MEDS: metroNIDAZOLE 500 MG TAB PO SCH ×3 (08:00→21:57)
[2019-06-30] MEDS: PANTOPRAZOLE 40 MG/10 ML VIAL IVP SCH ×2 (08:00→19:31)
[2019-06-30 08:03] LABS: HGB 9.6 gm/dL (11.4-16.0)
[2019-06-30 10:37] LABS: Immunoglobulin M 58.5 mg/dL (40.0-280.0)
[2019-06-30 12:53] LABS: Albumin 1.93 g/dL (3.80-4.90); Gamma Globulin 0.68 g/dL (0.70-1.50)
[2019-06-30 14:06] LABS: Free Kappa Lt Chain Qnt, Serum 2.36 mg/dL (0.33-1.94)
[2019-06-30] MEDS: IOPAMIDOL CONTRAST (ORAL USE) VIAL PO PRN ×2 (14:09→15:13)
--- NOTE | 2019-06-30 14:48 | PN ---
PROGRESS NOTE DATE OF SERVICE: 06/30/2019 REASON FOR FOLLOW UP: Leukocytosis with positive reactive or abdominal infection. INTERVAL HISTORY: The patient is currently afebrile. Patient has been complaining of pain, apparently this started last night,. has been mostly on the right side, more of a dull aching and not sharp. Patient feeling nausea, but did not have any vomiting. No chest pain, shortness of breath or cough. PHYSICAL EXAMINATION: Blood pressure is 145/70 with a pulse of 91, temperature 99.2. She is 98% on room air. General description is an elderly female, up in the chair in no distress. RESPIRATORY SYSTEM: Unlabored breathing, clear to auscultation anteriorly. HEART: S1, S2. Regular rate and rhythm. ABDOMEN: Abdominal symptom, no guarding or rigidity. LABS: Hemoglobin 9.5, white count 8.9, BUN of 5, creatinine 0.59. Lower extremity Dopplers were negative for DVT. DIAGNOSTIC IMPRESSION AND PLAN: Patient admitted to the hospital with abdominal pain. This patient did have some noticed intramural bleeding with some peritoneal hemorrhage, possibly from the Eliquis, that has been discontinued with elevated white count more likely reactive as currently we have not found any source of infection, on empiric Levaquin and Flagyl to continue. Will monitor clinical course closely. Patient has been advised n.p.o. status and rest the stomach and switching her pain medication to IV to prevent further irritation as the hemoglobin remains to be stable, suspicion low for ongoing bleeding. This has been discussed in detail with the , questions were answered. MMODL / IJN: [id number] /
[2019-06-30] MEDS ORDERED: LEVOFLOXACIN 750 MG TAB PO SCH (15:00)
--- NOTE | 2019-06-30 15:46 | P.PN ---
Subjective Progress Note Date: 06/30/19 CHIEF COMPLAINT: Abdominal pain HISTORY OF PRESENT ILLNESS: Patient seen and examined this morning at the bedside. Patient reports significant abdominal pain last night and this morning. Patient was started on stimulant laxative per hematology and received a dose last night and this morning. She reports she was unable to sleep much last night due to abdominal cramping and pain. MELISSA with minimal output. Hemoglobin remains stable. PHYSICAL EXAM: VITAL SIGNS: Reviewed. GENERAL: Well-developed in no acute distress. HEENT: No sclera icterus. Extraocular movements grossly intact. Moist buccal mucosa. Head is atraumatic, normocephalic. ABDOMEN: Soft. Nondistended. Tenderness upon palpation. MELISSA drain with serosanguineous drainage. NEUROLOGIC: Alert and oriented. Cranial nerves II through XII grossly intact. ASSESSMENT: 1. Acute blood loss anemia secondary to Intramural hematoma and possible intraperitoneal bleed 2. Recent removal of lap band secondary to gastric erosion 3. Recent diagnosis of left upper extremity DVT, discharged home on Eliquis PLAN: 1. Continue clear liquid diet 2. Monitor hemoglobin 3. Continue to monitor drainage from MELISSA drain 4. Incentive spirometer 10 times an hour while awake 5. Activity as tolerated 6. Continue to hold Eliquis. SCDs to bilateral lower extremities for DVT prophylaxis 7. Hematology on consult for recent DVT 8. Discontinue stimulant laxative due to abdominal pain and cramping 9. There is low suspicion with rebleeding as hemoglobin is stable and MELISSA drain with minimal outpatient. Suspect abdominal pain likely to stimulant laxative and initiation of diet yesterday. However, CT scan will be ordered with oral contrast to rule out additional etiology for pain Nurse practitioner note has been reviewed by physician. Signing provider agrees with the documented findings, assessment, and plan of care. Objective - Vital Signs Vital signs: Vital Signs Temp 98.9 F 06/30/19 14:13 Pulse 90 06/30/19 14:13 Resp 17 06/30/19 14:13 BP 146/74 06/30/19 14:13 Pulse Ox 96 06/30/19 14:13 Intake & Output 06/29/19 06/30/19 06/30/19 18:59 06:59 18:59 Intake Total 300 480 75 Output Total 20 Balance 300 460 75 Intake: Oral 300 480 75 Output: Drainage 20 Left Abdomen 20 Other: Voiding Method Toilet Toilet Toilet # Voids 0 1 - Labs CBC & Chem 7: 06/30/19 07:15 06/30/19 07:15 Labs: Abnormal Lab Results - Last 24 Hours (Table) 06/29/19 06/29/19 06/29/19 Range/Units 07:00 07:17 07:17 RBC (3.80-5.40) m/uL Hgb (11.4-16.0) gm/dL Hct (34.0-46.0) % RDW (11.5-15.5) % Plt Count (150-450) k/uL Chloride (98-107) mmol/L Carbon Dioxide (22-30) mmol/L BUN (7-17) mg/dL Iron 21 L (50-170) ug/dL Iron Saturation 7.61 L (12.00-45.00) Ferritin 336.0 H (10.0-291.0) ng/mL Lactate Dehydrogenase 972 H (313-618) U/L Total Protein (6.3-8.2) g/dL Total Protein (PEP) 4.4 L (6.2-8.2) g/dL Albumin (3.5-5.0) g/dL Albumin (PEP) 1.93 L (3.80-4.90) g/dL Gbtnh-5-Rojgalwiz 0.46 L (0.60-1.00) g/dL Gamma Globulins 0.68 L (0.70-1.50) g/dL Free [place] LC, Quant 2.36 H (0.33-1.94) mg/dL Free Lambda LC, Quant 3.11 H (0.57-2.63) mg/dL 06/30/19 06/30/19 Range/Units 07:15 07:15 RBC 3.38 L (3.80-5.40) m/uL Hgb 9.6 L D (11.4-16.0) gm/dL Hct 30.3 L (34.0-46.0) % RDW 16.8 H (11.5-15.5) % Plt Count 579 H (150-450) k/uL Chloride 108 H (98-107) mmol/L Carbon Dioxide 20 L (22-30) mmol/L BUN 5 L (7-17) mg/dL Iron (50-170) ug/dL Iron Saturation (12.00-45.00) Ferritin (10.0-291.0) ng/mL Lactate Dehydrogenase (313-618) U/L Total Protein 5.4 L (6.3-8.2) g/dL Total Protein (PEP) (6.2-8.2) g/dL Albumin 2.6 L (3.5-5.0) g/dL Albumin (PEP) (3.80-4.90) g/dL Dwaro-6-Piyxuqhoh (0.60-1.00) g/dL Gamma Globulins (0.70-1.50) g/dL Free [place] LC, Quant (0.33-1.94) mg/dL Free Lambda LC, Quant (0.57-2.63) mg/dL Microbiology - Last 24 Hours (Table) 06/27/19 15:00 Blood Culture - Preliminary Blood No Growth after 48 hours
[2019-06-30] MEDS ORDERED: HYDROmorphone 1 MG/ML 1 ML SYRINGE IVP STA (16:22)
--- NOTE | 2019-06-30 16:23 | CT ---
EXAMINATION TYPE: CT abdomen pelvis wo con DATE OF EXAM: 06/30/2019 COMPARISON: 06/27/2019 HISTORY: Post OP Abdominal pain. CT DLP: 803.9 mGycm Automated exposure control for dose reduction was used. TECHNIQUE: Helical acquisition of images was performed from the lung bases through the pelvis. FINDINGS: Bilateral small effusions. There is basilar consolidation. There is evidence of ascites. There is hyperintense mixed with low density suggestive of active hemor rhage within the abdominal cavity. Alternatively the hyperdensity could be related to extravasation i s there is consideration for leak. Correlate with hemoglobin and hematocrit. Bowel gas pattern nonspecific. There is a surgical drain seen extending into the abdomen. Surgical st aples are noted. There is subcutaneous edema. Hypertrophic and degenerative changes are seen with fac et arthropathy and grade 1 anterolisthesis L4 on L5. Atherosclerotic change aorta. Correlate for prev ious gallstones. Could not exclude a small amount of free intraperitoneal air. DeGraff calcification pelvis could be related to uterine fibroid. Persistent surgical sutures anterior to the GE junction. Report called to patient's nurse on 06/30/2019 at 4:20 PM. IMPRESSION: 1. There remains a mixed attenuation throughout the abdominal and pelvic cavity but most noticeable in the anterior abdomen measuring a length of approximately 11.5 cm suggestive of intramural and intr aperitoneal hemorrhage. The amount of fluid and suspected hemorrhage within the abdominal cavity appe ars similar to the prior exam. Hyperdensity suggest active hemorrhage. Alternative consideration woul d be hemorrhage with the extravasation of contrast. Small amount of free air in the left abdomen note d. 2. Bilateral pleural effusions and consolidation. 3. Cholelithiasis.
[2019-06-30] MEDS: HYDROmorphone 1 MG/ML 1 ML SYRINGE IVP PRN ×2 (19:30→22:29)
[2019-07-01] MEDS: HYDROmorphone 1 MG/ML 1 ML SYRINGE IVP PRN ×7 (02:42→18:03)
[2019-07-01] MEDS: SODIUM CHLORIDE 0.9% 1,000 ML IV SCH (05:52)
--- NOTE | 2019-07-01 07:34 | P.PN ---
Subjective This is a 68 years old female with past medical history of osteoarthritis, right breast cancer status post mastectomy and chemotherapy, osteoporosis, morbid obesity. She was recently admitted to the hospital for laparoscopic lysis of adhesions and removal of an erosive gastric band , her hospital course was complicated by left upper arm DVT secondary to PICC line which was removed. Presents this time with abdominal pain with some bloody discharge from her MELISSA, patient has pain and tenderness with rebound tenderness in the right middle abdo men next to the umbilicus. No nausea vomiting or diarrhea. Vitals were stable. showing WBC of 6.1K, hemoglobin dropped to 6.5 platelets within normal limits. BMP is unremarkable except for mild hyponatremia had mildly elevated liver enzymes. CT of the abdomen and pelvis: Intramural intraoperative peritoneal hemorrhage 06/29/2019 Patient feels better today, she is sitting on the chair fully awake with no chest pain or dyspnea. She said that her abdominal pain is better controlled today at 5/10, no nausea vomiting and she is tolerating liquid diet, no bowel movement but she is passing gases.Vitas looks stable. Hemoglobin is 8.1, rest of CBC. Ultrasound Doppler of the left upper extremity showing resistance thrombosis in the subclavian or superficial venous thrombosis.hematology consult is already called.also we will lower the fluid from 100 to 50 mL/h 06/30/2019 pt is awake and complains from significant abd pain pain today , more on the left upper abd . no n/v, vitals stable and Hb improved to 9.6. laxative were stopped by surgery team and CT of abd with oral contrast ordered. hematology team evaluated pt Objective - Vital Signs Vital signs: Vital Signs Temp 98.9 F 06/30/19 14:13 Pulse 101 H 06/30/19 16:26 Resp 17 06/30/19 16:26 BP 146/74 06/30/19 14:13 Pulse Ox 100 06/30/19 16:26 Intake & Output 06/29/19 06/30/19 06/30/19 18:59 06:59 18:59 Intake Total 300 480 75 Output Total 20 Balance 300 460 75 Intake: Oral 300 480 75 Output: Drainage 20 Left Abdomen 20 Other: Voiding Method Toilet Toilet Toilet # Voids 0 1 - Exam GENERAL: The patient is alert and oriented x3, not in any acute distress. Well developed, well nourished. HEENT: Pupils are round and equally reacting to light. EOMI. No scleral icterus. No conjunctival pallor. Normocephalic, atraumatic. No pharyngeal erythema. No thyromegaly. CARDIOVASCULAR: S1 and S2 present. No murmurs, rubs, or gallops. PULMONARY: Chest is clear to auscultation, no wheezing or crackles. -ABDOMEN: Soft, epigastric tenderness but less rebound tenderness, nondistended, normoactive bowel sounds. No palpable organomegaly. MUSCULOSKELETAL: No joint swelling or deformity. EXTREMITIES: No cyanosis, clubbing, or pedal edema. NEUROLOGICAL: Gross neurological examination did not reveal any focal deficits. SKIN: No rashes. - Labs CBC & Chem 7: 06/30/19 07:15 06/30/19 07:15 Labs: Abnormal Lab Results - Last 24 Hours (Table) 06/29/19 06/29/19 06/29/19 Range/Units 07:00 07:17 07:17 RBC (3.80-5.40) m/uL Hgb (11.4-16.0) gm/dL Hct (34.0-46.0) % RDW (11.5-15.5) % Plt Count (150-450) k/uL Chloride (98-107) mmol/L Carbon Dioxide (22-30) mmol/L BUN (7-17) mg/dL Iron 21 L (50-170) ug/dL Iron Saturation 7.61 L (12.00-45.00) Ferritin 336.0 H (10.0-291.0) ng/mL Lactate Dehydrogenase 972 H (313-618) U/L Total Protein (6.3-8.2) g/dL Total Protein (PEP) 4.4 L (6.2-8.2) g/dL Albumin (3.5-5.0) g/dL Albumin (PEP) 1.93 L (3.80-4.90) g/dL Ijmtg-7-Anfmmtypw 0.46 L (0.60-1.00) g/dL Gamma Globulins 0.68 L (0.70-1.50) g/dL Free [place] LC, Quant 2.36 H (0.33-1.94) mg/dL Free Lambda LC, Quant 3.11 H (0.57-2.63) mg/dL 06/30/19 06/30/19 Range/Units 07:15 07:15 RBC 3.38 L (3.80-5.40) m/uL Hgb 9.6 L D (11.4-16.0) gm/dL Hct 30.3 L (34.0-46.0) % RDW 16.8 H (11.5-15.5) % Plt Count 579 H (150-450) k/uL Chloride 108 H (98-107) mmol/L Carbon Dioxide 20 L (22-30) mmol/L BUN 5 L (7-17) mg/dL Iron (50-170) ug/dL Iron Saturation (12.00-45.00) Ferritin (10.0-291.0) ng/mL Lactate Dehydrogenase (313-618) U/L Total Protein 5.4 L (6.3-8.2) g/dL Total Protein (PEP) (6.2-8.2) g/dL Albumin 2.6 L (3.5-5.0) g/dL Albumin (PEP) (3.80-4.90) g/dL Ergju-8-Feybugqjs (0.60-1.00) g/dL Gamma Globulins (0.70-1.50) g/dL Free [place] LC, Quant (0.33-1.94) mg/dL Free Lambda LC, Quant (0.57-2.63) mg/dL Microbiology - Last 24 Hours (Table) 06/27/19 15:00 Blood Culture - Preliminary Blood No Growth after 48 hours Assessment and Plan Assessment: Gastric wall hematoma and intraparenchymal hemorrhage acute blood loss anemia Morbid obesity, status post laparoscopic lysis of adhesions and removal of an erosive gastric band Recent Left upper extremity DVTs related to PICC line on oral anticoagulant. Hold Eliquis in view of her bleed. Hematology consult is following the pt History of right breast cancer status post mastectomy and chemotherapy History of posterior arthritis History of osteoporosis Plan: This pleasant 68 years old female who presents with intraoperative peritoneal and intramural gastric hemorrhage. When she was on Eliquis for her left upper extremity DVT. Hold Eliquis. Transfuse blood to keep hemoglobin more than 7.hematology team evaluated pt and work up is in progress. Labs and medication were reviewed.. Continue same treatment. Continue with symptomatic treatment. Resume home medication. Monitor lytes and vitals. DVT and GI prophylaxis. Further recommendations of the clinical course of the patient DVT prophylaxis: No anticoagulation in view of intraperitoneal hemorrhage GI Prophylaxis: Protonix Prognosis is guarded thank you for consulting us
[2019-07-01] MEDS: PANTOPRAZOLE 40 MG/10 ML VIAL IVP SCH (07:42)
[2019-07-01] MEDS: metroNIDAZOLE 500 MG TAB PO SCH (07:42)
[2019-07-01 10:13] LABS: Calcium 7.7 mg/dL (8.4-10.2); Potassium 4.4 mmol/L (3.5-5.1)
[2019-07-01 10:16] LABS: Anisocytosis Slight; Basophils % (A) 0 %; Eosinophils % (A) 0 %; HCT 21.8 % (34.0-46.0); Hypochromasia Marked; Lymphocytes # (A) 0.8 k/uL (1.0-4.8); Lymphocytes % (A) 12 %; MCH 28.5 pg (25.0-35.0); MCHC 31.2 g/dL (31.0-37.0); MCV 91.4 fL (80.0-100.0); Mean Platelet Volume 7.5; Monocytes # (A) 0.3 k/uL (0-1.0); Monocytes % (A) 5 %; Neutrophils # (A) 5.4 k/uL (1.3-7.7); Neutrophils % (A) 81 %; Platelet Count 456 k/uL (150-450); Poikilocytosis Slight; RBC 2.39 m/uL (3.80-5.40); RDW 16.4 % (11.5-15.5); WBC 6.6 k/uL (3.8-10.6)
[2019-07-01 11:07] LABS: HGB 6.8 gm/dL (11.4-16.0)
--- NOTE | 2019-07-01 11:45 | P.PN ---
Subjective Progress Note Date: 07/01/19 CHIEF COMPLAINT: Abdominal pain HISTORY OF PRESENT ILLNESS: Patient seen and examined this morning at the bedside. She reports her pain has improved since last night with the use of IV Dilaudid. MELISSA drain with small amount of serosanguineous drainage. Patient s tates she does not want her clear liquid tray at this time as she is afraid it will increase her abdominal pain. Hemoglobin this morning is 6.8. PHYSICAL EXAM: VITAL SIGNS: Reviewed. GENERAL: Well-developed in no acute distress. HEENT: No sclera icterus. Extraocular movements grossly intact. Moist buccal mucosa. Head is atraumatic, normocephalic. ABDOMEN: Soft. Nondistended. Tenderness upon palpation. MELISSA drain with serosanguineous drainage. NEUROLOGIC: Alert and oriented. Cranial nerves II through XII grossly intact. ASSESSMENT: 1. Acute blood loss anemia secondary to Intramural hematoma and possible intraperitoneal bleed 2. Recent removal of lap band secondary to gastric erosion 3. Recent diagnosis of left upper extremity DVT, discharged home on Eliquis PLAN: 1. Nothing by mouth. Consult dietitian to initiate PPN. 2. Monitor hemoglobin. 1 unit RBC transfusion. 3. Continue to monitor drainage from MELISSA drain 4. Incentive spirometer 10 times an hour while awake 5. Activity as tolerated 6. Continue to hold Eliquis. SCDs to bilateral lower extremities for DVT prophylaxis 7. Hematology on consult for recent DVT 8. No surgical intervention at this time per Dr. Gore. Continue conservative management. Nurse practitioner note has been reviewed by physician. Signing provider agrees with the documented findings, assessment, and plan of care. Objective - Vital Signs Vital signs: Vital Signs Temp 98.1 F 07/01/19 09:04 Pulse 100 07/01/19 09:04 Resp 18 07/01/19 09:04 BP 140/68 07/01/19 09:04 Pulse Ox 96 07/01/19 09:04 Intake & Output 06/30/19 07/01/19 07/01/19 18:59 06:59 18:59 Intake Total 75 1010 Balance 75 1010 Intake: Intake, IV Titration 1000 Amount Sodium Chloride 0.9% 1, 1000 000 ml @ 50 mls/hr IV . Q20H [facility] Rx#:[id number] Oral 75 10 Other: Voiding Method Toilet Toilet # Voids 1 1 - Labs CBC & Chem 7: 07/01/19 09:03 07/01/19 09:03 Labs: Abnormal Lab Results - Last 24 Hours (Table) 06/29/19 06/29/19 07/01/19 Range/Units 07:00 07:17 09:03 RBC 2.39 L (3.80-5.40) m/uL Hgb 6.8 L* D (11.4-16.0) gm/dL Hct 21.8 L (34.0-46.0) % RDW 16.4 H (11.5-15.5) % Plt Count 456 H (150-450) k/uL Lymphocytes # 0.8 L (1.0-4.8) k/uL Carbon Dioxide (22-30) mmol/L Calcium (8.4-10.2) mg/dL Albumin (PEP) 1.93 L (3.80-4.90) g/dL Qfdwg-0-Iuebhtcxs 0.46 L (0.60-1.00) g/dL Gamma Globulins 0.68 L (0.70-1.50) g/dL Free [place] LC, Quant 2.36 H (0.33-1.94) mg/dL Free Lambda LC, Quant 3.11 H (0.57-2.63) mg/dL 07/01/19 Range/Units 09:03 RBC (3.80-5.40) m/uL Hgb (11.4-16.0) gm/dL Hct (34.0-46.0) % RDW (11.5-15.5) % Plt Count (150-450) k/uL Lymphocytes # (1.0-4.8) k/uL Carbon Dioxide 19 L (22-30) mmol/L Calcium 7.7 L (8.4-10.2) mg/dL Albumin (PEP) (3.80-4.90) g/dL Nhmdp-2-Hjnqousxv (0.60-1.00) g/dL Gamma Globulins (0.70-1.50) g/dL Free [place] LC, Quant (0.33-1.94) mg/dL Free Lambda LC, Quant (0.57-2.63) mg/dL Microbiology - Last 24 Hours (Table) 06/27/19 15:00 Blood Culture - Preliminary Blood No Growth after 72 hours
--- NOTE | 2019-07-01 12:49 | P.PN ---
Subjective Progress Note Date: 07/01/19 Principal diagnosis: UE DVT, Recent surgical wound Hemoglobin 6.8 today. Transfuse PRBC Objective - Vital Signs Vital signs: Vital Signs Temp 98.1 F 07/01/19 09:04 Pulse 100 07/01/19 09:04 Resp 18 07/01/19 09:04 BP 140/68 07/01/19 09:04 Pulse Ox 96 07/01/19 09:04 Intake & Output 06/30/19 07/01/19 07/01/19 18:59 06:59 18:59 Intake Total 75 1010 Balance 75 1010 Intake: Intake, IV Titration 1000 Amount Sodium Chloride 0.9% 1, 1000 000 ml @ 50 mls/hr IV . Q20H [facility] Rx#:[id number] Oral 75 10 Other: Voiding Method Toilet Toilet # Voids 1 1 - Exam General: Alert and Oriented x3, No Acute Distress Head: Normocytic, Atraumatic Neck: Supple Mouth: No Lesions, No Thrush Eyes: Non-sclerotic No Palpable cervical, supraclavicular, axillary adenopathy Heart: Regular Rate, Regular Rhythm Lungs: Clear to Ausculations, No Wheeze, No Rhonchi, Diminishe bilateral lower lobes, No increased respiratory effort noted Abdomen: MELISSA with blood tinged drainafe Extremities: No Edema, Equal Strength Neurological: No Focal Defects: No sensory or motor deficits noted Psych: Calm and cooperative - Labs CBC & Chem 7: 07/01/19 09:03 07/01/19 09:03 Labs: Abnormal Lab Results - Last 24 Hours (Table) 06/29/19 06/29/19 07/01/19 Range/Units 07:00 07:17 09:03 RBC 2.39 L (3.80-5.40) m/uL Hgb 6.8 L* D (11.4-16.0) gm/dL Hct 21.8 L (34.0-46.0) % RDW 16.4 H (11.5-15.5) % Plt Count 456 H (150-450) k/uL Lymphocytes # 0.8 L (1.0-4.8) k/uL Carbon Dioxide (22-30) mmol/L Calcium (8.4-10.2) mg/dL Albumin (PEP) 1.93 L (3.80-4.90) g/dL Esnef-7-Whviwtirp 0.46 L (0.60-1.00) g/dL Gamma Globulins 0.68 L (0.70-1.50) g/dL Free [place] LC, Quant 2.36 H (0.33-1.94) mg/dL Free Lambda LC, Quant 3.11 H (0.57-2.63) mg/dL 07/01/19 Range/Units 09:03 RBC (3.80-5.40) m/uL Hgb (11.4-16.0) gm/dL Hct (34.0-46.0) % RDW (11.5-15.5) % Plt Count (150-450) k/uL Lymphocytes # (1.0-4.8) k/uL Carbon Dioxide 19 L (22-30) mmol/L Calcium 7.7 L (8.4-10.2) mg/dL Albumin (PEP) (3.80-4.90) g/dL Pfnmm-2-Ypeuqnqix (0.60-1.00) g/dL Gamma Globulins (0.70-1.50) g/dL Free [place] LC, Quant (0.33-1.94) mg/dL Free Lambda LC, Quant (0.57-2.63) mg/dL Microbiology - Last 24 Hours (Table) 06/27/19 15:00 Blood Culture - Preliminary Blood No Growth after 72 hours Assessment and Plan Plan: Assessment and rec: Provoked Upper extremity DVT: - Anticoagulation has been on hold regarding blood loss anemia - Hold while immediate threat of bleeding - IVC will not be of benefit with Upper extremity VTE. - Surgery is following Normocytic Anemia: - Full anemia work-up in place. - Secondary to acute blood loss after surgery and intrabdominal hemorrhage - Monitor daily CBC and transfuse hemoglobin less than 7 - Blood loss anemia, component iron deficiency Ferritin increased as drawn after Transfusion. Once immediate threat of bleeding resolved, would still eventually recommend ac therapy 3 months - BLE Dopplers rec - Await full work-up - Agre with Transfusion PRBC today - Hold off on restarting anticoagulation at this time until underlying issues are resolved, likely 3-4 weeks to heal surgical intervention
[2019-07-01 15:49] LABS: Magnesium 1.7 mg/dL (1.6-2.3); Phosphorus 3.7 mg/dL (2.5-4.5)
[2019-07-01 15:56] VITALS: RESP 16
[2019-07-01] MEDS ORDERED: MAGNESIUM SULFATE-D5W PMX 1 GM in DEXTROSE/WATER 1 100ML.BAG IVPB SCH (16:00)
[2019-07-01] MEDS ORDERED: ALPRAZolam 0.25 MG TAB PO PRN (16:15)
[2019-07-01] MEDS ORDERED: MVI, ADULT NO.4 WITH VIT K 10 ML, TRACE (CONC-1ML/DOSE) 1 ML in AMINO ACID 4.25%-D10W+L... IV ONE ×3 (17:00)
--- NOTE | 2019-07-01 17:27 | P.PN ---
Subjective Progress Note Date: 07/01/19 Principal diagnosis: Acute blood loss anemia secondary to intramural hematoma and possible intraperitoneal bleed Recent removal of lap band secondary to gastric erosions Reason diagnosis of left upper extremity DVT; patient was discharged home on Eliquis 68 years old female with past medical history of osteoarthritis, right breast cancer status post mastectomy and chemotherapy, osteoporosis, morbid obesity. She was recently admitted to the hospital for laparoscopic lysis of adhesions and removal of an erosive gastric band , her hospital course was complicated by left upper arm DVT secondary to PICC line which was removed. Presents this time with abdominal pain with some bloody discharge from her MELISSA, patient has pain and tenderness with rebound tenderness in the right middle abdomen next to the umbilicus. No nausea vomiting or diarrhea. Vitals were stable. showing WBC of 6.1K, hemoglobin dropped to 6.5 platelets within normal limits. BMP is unremarkable except for mild hyponatremia had mildly elevated liver enzymes. CT of the abdomen and pelvis: Intramural i ntraoperative peritoneal hemorrhage 07/01/2019 Patient continues to complain of significant abdominal pain which improves with IV Dilaudid; CT abdomen was unremarkable; surgery is following; hemoglobin was 6.8 this morning; surgery recommending transfusion of 1 unit of packed RBCs; patient recommended to continue with incentive spirometry; anticoagulation is on hold due to complete; continue with SCDs for DVT prophylaxis; no surgical intervention at this time per surgery Objective - Vital Signs Vital signs: Vital Signs Temp 98.1 F 07/01/19 09:04 Pulse 100 07/01/19 09:04 Resp 18 07/01/19 09:04 BP 140/68 07/01/19 09:04 Pulse Ox 96 07/01/19 09:04 Intake & Output 06/30/19 07/01/19 07/01/19 18:59 06:59 18:59 Intake Total 75 1010 Balance 75 1010 Intake: Intake, IV Titration 1000 Amount Sodium Chloride 0.9% 1, 1000 000 ml @ 50 mls/hr IV . Q20H [facility] Rx#:[id number] Oral 75 10 Other: Voiding Method Toilet Toilet # Voids 1 1 - Exam - Constitutional General appearance: Present: average body habitus, cooperative, no acute distress - EENT Eyes: Present: anicteric sclerae, EOMI, PERRLA, normal appearance ENT: Present: hearing grossly normal, normal oropharynx Ears: bilateral: normal - Neck Neck: Present: normal ROM. Absent: lymphadenopathy, rigidity, thyromegaly Carotids: negative: bruit present Thyroid: bilateral: normal size, negative: enlarged, nodule - Respiratory Respiratory: bilateral: CTA, negative: rales, rhonchi, wheezing - Cardiovascular Rhythm: regular Heart sounds: normal: S1, S2 Abnormal Heart Sounds: Absent: systolic murmur, diastolic murmur - Gastrointestinal General gastrointestinal: Present: normal bowel sounds, soft. Absent: distended, organomegaly, tenderness - Genitourinary Genitourinary Comment(s): deferred - Integumentary Integumentary: Present: normal turgor. Absent: jaundiced, rash, ulcer - Neurologic Neurologic: Present: CNII-XII intact. Absent: focal deficits - Musculoskeletal Musculoskeletal: Present: gait normal, strength equal bilaterally - Psychiatric Psychiatric: Present: A&O x's 3, appropriate affect, intact judgment & insight - Labs CBC & Chem 7: 07/01/19 09:03 07/01/19 09:03 Labs: Abnormal Lab Results - Last 24 Hours (Table) 06/29/19 06/29/19 07/01/19 Range/Units 07:00 07:17 09:03 Carbon Dioxide 19 L (22-30) mmol/L Calcium 7.7 L (8.4-10.2) mg/dL Albumin (PEP) 1.93 L (3.80-4.90) g/dL Xcvrx-3-Tfjvwzmnn 0.46 L (0.60-1.00) g/dL Gamma Globulins 0.68 L (0.70-1.50) g/dL Free [place] LC, Quant 2.36 H (0.33-1.94) mg/dL Free [place] LC, Quant 3.11 H (0.57-2.63) mg/dL Microbiology - Last 24 Hours (Table) 06/27/19 15:00 Blood Culture - Preliminary Blood No Growth after 72 hours Assessment and Plan Assessment: Gastric wall hematoma and intraparenchymal hemorrhage acute blood loss anemia Morbid obesity, status post laparoscopic lysis of adhesions and removal of an erosive gastric band Recent Left upper extremity DVTs related to PICC line on oral anticoagulant. Hold Eliquis in view of her bleed. Hematology consult is following the pt History of right breast cancer status post mastectomy and chemotherapy History of posterior arthritis History of osteoporosis Plan: This pleasant 68 years old female who presents with intraoperative peritoneal and intramural gastric hemorrhage. When she was on Eliquis for her left upper extremity DVT. Hold Eliquis. Transfuse blood to keep hemoglobin more than 7.hematology team evaluated pt and work up is in progress. Labs and medication were reviewed.. Continue same treatment. Continue with symptomatic treatment. Resume home medication. Monitor lytes and vitals. DVT and GI prophylaxis. Further recommendations of the clinical course of the patient DVT prophylaxis: No anticoagulation in view of intraperitoneal hemorrhage GI Prophylaxis: Protonix
--- NOTE | 2019-07-01 17:49 | P.OP ---
Date of Procedure: 07/01/19 Description of Procedure: SURGEON: Isabel Liao DO PREOPERATIVE DIAGNOSIS: [Anemia, poor peripheral access, need for peripheral nutrition]. POSTOPERATIVE DIAGNOSIS: [Same]. OPERATION: Ultrasound guided right internal jugular central venous catheter placement ANESTHESIA: Local 1% ESTIMATED BLOOD LOSS: Minimal SPECIMENS REMOVED: None COMPLICATIONS: None Findings and indications:The patient is a 68-year-old female with a history of right breast cancer status post mastectomy and chemotherapy, osteoporosis, morbid obesity, a recent removal of an erosive gastric band who presented to the hospital for a GI bleed. She on her last visit did have a DVT in her left upper arm secondary to a PICC line. At that time she was anticoagulated and the PICC line was removed at discharge. Upon return she has poor peripheral venous access and is in need of nutrition, antibiotics and local products at this time. It was requested that a triple-lumen central line be placed. Procedure in detail: The patient's bed was laid in supine position and in Trendelenburg. The right side of the chest and neck was prepped and draped in sterile manner. Ultrasound guidance was utilized to identify the right internal jugular vein. The skin overlying is anesthetized. Utilizing a multipurpose needle, vein was accessed, with return of dark venous, nonpulsatile blood. Guidewire was passed. A dilator was advanced across the guidewire. The dilator was removed and the catheter that was previously flushed was placed. It aspirated and flushed freely. It was secured in place with suture and a sterile dressing was placed. The patient tolerated the procedure well. A postprocedural chest x-ray is pending.
[2019-07-01 17:56] VITALS: BP 144/85; PULSE 90; TEMP 97.9
[2019-07-01] MEDS ORDERED: FAT EMULSION 20% 250 ML in EMPTY BAG 1 BAG IV SCH (18:00)
--- NOTE | 2019-07-01 18:02 | XR ---
EXAMINATION TYPE: XR chest 1V portable DATE OF EXAM: 07/01/2019 COMPARISON: 06/19/2019 HISTORY: Line placement TECHNIQUE: Single frontal view of the chest is obtained. FINDINGS: There is some blunting of left costophrenic angle. Heart size is normal. There is right ce ntral venous catheter with the tip over the right atrium. There is no heart failure. Bony thorax appe ars intact. IMPRESSION: There is some pleural reaction at the left lung base improved compared to last exam. The re is clearing of atelectasis right lung base compared to last exam. Normal heart.
--- NOTE | 2019-07-01 19:25 | PN ---
PROGRESS NOTE DATE OF SERVICE: 07/01/2019. REASON FOR FOLLOWUP: Leukocytosis, possibly reactive. INTERVAL HISTORY: The patient is currently afebrile. The patient's abdominal pain seems to have improved compared to yesterday. The patient denies having any chest pain. No shortness of breath. No cough. No nausea. No diarrhea. PHYSICAL EXAMINATION: Blood pressure 143/82 with a pulse of 95, temperature 97.7, she is 100% on room air. General description is an elderly female up in the chair in no distress. HEENT exam is slight pallor. No scleral icterus. Oral mucosa moist. LUNGS: Unlabored breathing. Clear to auscultation anteriorly. Heart S1, S2. Regular rate and rhythm. ABDOMEN: Soft. Mildly distended. No guarding or rigidity. LABS: Hemoglobin 10, white count 6.6 with a BUN of 10, creatinine 0.82. DIAGNOSTIC IMPRESSION AND PLAN: Patient admitted to the hospital with acute abdominal pain and elevated white count, likely secondary to intramural bleeding, possibly related to Eliquis that has been discontinued. The patient's white count subsequently has normalized. The patient to continue with Flagyl and Levaquin. We will monitor clinical course closely. Continue supportive care. MMODL / IJN: [id number] / MTDD
[2019-07-01] MEDS ORDERED: PANTOPRAZOLE 40 MG TABLET PO SCH (21:00)
[2019-07-02] MEDS ORDERED: 1: MVI, ADULT NO.4 WITH VIT K 10 ML, TRACE (CONC-1ML/DOSE) 1 ML in AMINO ACID 4.25%-D10W IV SCH ×3 (10:00)
[2019-07-04 08:19] LABS: Methylmalonic Acid <0.10 umol/L (<0.40)
--- NOTE | 2019-08-17 14:44 | P.DS ---
Providers Date of admission: 06/27/19 16:17 Expected date of discharge: 07/01/19 Attending physician: Brian Gore Consults: 06/28/19 11:51 Consult Physician Routine Consulting Provider: Maria Eugenia Wolf Consult Reason/Comments: patient known to you Do you want consulting provider notified?: Yes 06/28/19 11:52 Consult Physician Routine Consulting Provider: Adriana Christianson Consult Reason/Comments: medical management Do you want consulting provider notified?: Yes 06/29/19 08:46 Consult Physician Routine Consulting Provider: Jacob Leiva Consult Reason/Comments: history of recent DVT Do you want consulting provider notified?: Yes 07/01/19 16:09 Consult Physician Routine Consulting Provider: Isabel Liao Consult Reason/Comments: IV access, DVT left arm, mastectomy right arm, possible central line Do you want consulting provider notified?: Yes Primary care physician: Physician Nonstaff Hospital Course: 68-year-old female who recently underwent removal of lap band for gastric erosion on June 15. Patient developed DVT from PICC line during hospitalization and was placed on Eliquis. Patient was discharged home in stable condition and states she was doing well at home until early in the morning on the day of admission when she developed sudden abdominal pain and bloody drainage in her MELISSA drain. Patient presented to the emergency room. Workup in the ER included CAT scan which revealed intramural hematoma of the stomach wall as well as some free intraperitoneal fluid which could represent blood. No evidence of perforation of the stomach or extravasation of contrast. Patient was treated with conservative measures during hospitalization. She received blood transfusions as needed. She was followed by infectious disease during hospitalization. She was also followed by hematology/oncology during hospitalization as well. She received PPN for nutrition. Patients family requested transfer to [facility] in [place] on 07/01/19 and patient was accepted at their facility. She was transferred in stable condition. Please see EMR for further hospital course details. Discharge Diagnosis: 1. Acute blood loss anemia secondary to Intramural hematoma and possible intraperitoneal bleed 2. Recent removal of lap band secondary to gastric erosion 3. Recent diagnosis of left upper extremity DVT, discharged home on Eliquis Nurse practitioner note has been reviewed by physician. Signing provider agrees with the documented findings, assessment, and plan of care. Plan - Discharge Summary Discharge Rx Participant: No New Discharge Prescriptions: No Action Apixaban [Eliquis] See Taper PO BID traMADol HCl [Ultram] 50 mg PO Q4H PRN PRN Reason: Pain Pantoprazole Sodium [Protonix] 40 mg PO BID Discharge Medication List Apixaban [Eliquis] See Taper PO BID 06/27/19 [History] traMADol HCl [Ultram] 50 mg PO Q4H PRN 06/27/19 [History] Pantoprazole Sodium [Protonix] 40 mg PO BID 08/01/19 [History] Follow up Appointment(s)/Referral(s): Nonstaff,Physician [Primary Care Provider] - 1-2 days [facility] [place], [place] [NON-STAFF] - 1 Week Activity/Diet/Wound Care/Special Instructions: Kelsey DAVIS for home care: [phone] Discharge Disposition: TRANSFER TO SHORT TERM HOSP
== END 2019-07-01 19:05 | disposition short-term general hospital (02) | DRG 813 ==
LOC: EC 11:10 → 4SSUR 16:17
PROVIDERS: ADMIT Surgery; ATTEND Surgery
PROC: B543ZZA Ultrasonography of Right Jugular Veins, Guidance (ICD-10-PCS; principal; 2019-07-01 15:10)
PROC: 05HM33Z Insertion of Infusion Device into Right Internal Jugular Vein, Percutaneous Approach (ICD-10-PCS; principal; 2019-07-01 15:10)
PROC: 30233N1 Transfusion of Nonautologous Red Blood Cells into Peripheral Vein, Percutaneous Approach (ICD-10-PCS; 2019-07-01 15:10)
DX: D68.32 Hemorrhagic disorder due to extrinsic circulating anticoagulants (principal); K66.1 Hemoperitoneum; D62 Acute posthemorrhagic anemia; E87.1 Hypo-osmolality and hyponatremia; I82.622 Acute embolism and thrombosis of deep veins of left upper extremity; T82.868A Thrombosis due to vascular prosthetic devices, implants and grafts, initial encounter; T45.515A Adverse effect of anticoagulants, initial encounter; D72.829 Elevated white blood cell count, unspecified; E66.01 Morbid (severe) obesity due to excess calories; Z68.32 Body mass index [BMI] 32.0-32.9, adult; M81.0 Age-related osteoporosis without current pathological fracture; Z79.01 Long term (current) use of anticoagulants; Z82.0 Family history of epilepsy and other diseases of the nervous system; Z85.3 Personal history of malignant neoplasm of breast; Z92.21 Personal history of antineoplastic chemotherapy; Z96.653 Presence of artificial knee joint, bilateral; Z90.11 Acquired absence of right breast and nipple; Z87.11 Personal history of peptic ulcer disease; Z88.0 Allergy status to penicillin; Y84.8 Other medical procedures as the cause of abnormal reaction of the patient, or of later complication, without mention of misadventure at the time of the procedure
CPT/HCPCS: 36410; 36415; 71045; 74018; 74176; 74177; 76937; 80048; 80053; 80076; 81003; 82150; 82607; 82728; 82747; 82784; 83540; 83550; 83615; 83690; 83735; 83883; 83921; 84100; 84165; 84478; 85025; 85027; 85610; 85730; 86334; 86850; 86870; 86880; 86900; 86901; 86920; 87040; 93970; 96361; 96365; 96375; 96376; 99285

== ENCOUNTER → 2019-08-01 | Outpatient (CLI) | payer BC ==
[2019-08-01 14:50] VITALS: BP 122/68; PULSE 88; TEMP 98.4; BMI 31.5
--- NOTE | 2019-08-01 16:14 | P.HPBAR ---
Bariatric H&P - History & Physicial H&P Date: 08/01/19 History & Physicial: Visit/CC: post band erosion/removal surgery Patient initial contact: Initial weight: 84.368 kg Initial weight in pounds: 186.00 Height: 5 ft 3 in Initial BMI: 32.9 Last weight: Current weight: 80.739 kg Current weight in pounds: 178.00 Current BMI: 31.5 [employer] body weight (based on NIH guidelines): 52.163 kg Excess body weight loss: 11.2% The patient is a 68 year-old F who presents for Bariatric Assessment. Follow- up. Patient underwent removal of gastric band approximately 6 weeks ago. She states that she has been slow to move around the house. She has been tolerating full liquids and is slowly started some regular diet. She is still has some complaints of some abdominal pain. Past Medical History Past Medical History: Cancer, Deep Vein Thrombosis (DVT), Osteoarthritis (OA) Additional Past Medical History / Comment(s): Right breast cancer (had mastectomy and chemotherapy Tamoxifen). Osteoporosis. Stenosis of neck and back. dvt 1988. DVT Left arm secondary to PICC Line placement (May 2019) History of Any Multi-Drug Resistant Organisms: None Reported Past Surgical History: Bariatric Surgery, Orthopedic Surgery Additional Past Surgical History / Comment(s): Lap band placed 2006,. Bilateral knee replacement. Right mastectomy. lap band removal 06/15/2019 Past Anesthesia/Blood Transfusion Reactions: Postoperative Nausea & Vomiting (PONV) Additional Past Anesthesia/Blood Transfusion Reaction / Comm: has had a reaction to blood transfusion, hives (needed benadryl) Past Psychological History: No Psychological Hx Reported Smoking Status: Never smoker Past Alcohol Use History: Rare Past Drug Use History: None Reported - Past Family History Son(s) Family Medical History: Seizure Disorder Additional Family Medical History / Comment(s): tubs placed in ears times 4, torn rotator cuff right shoulder, Surgical - Exam Vital Signs Temp Pulse BP 98.4 F 88 122/68 08/01/19 14:09 08/01/19 14:09 08/01/19 14:09 - General well developed, well nourished - Eyes PERRL - ENT normal pinna - Neck no masses - Respiratory normal expansion - Cardiovascular Rhythm: regular - Abdomen Abdomen: soft, non tender Bariatric Assessment & Plan Plan: Status post lap band removal due to gastric erosion. The patient will continue her request for her brachial vein DVT. She is encouraged to increase her diet. The patient has some minimal epigastric pain. I recommended observation this time. She may try Tylenol or Motrin when necessary for the pain. She'll follow-up in 4 weeks. Bariatric Checklist Checklist: Plan: Checklist: EGD: 1. Hiatal hernia: 2. H. Pylori: HgbA1c: Vitamin D: Smoking: Never smoker Primary care physician referral: [address] [place] [place]. [address] Psychiatry clearance: Cardiology clearance: Sleep study: Diet journal: VTE risk score: VTE risk level: Rehab needs at discharge:
== END | disposition home or self-care (01) ==
LOC: BARWHC3 12:28
PROVIDERS: ATTEND Surgery
DX: Z48.815 Encounter for surgical aftercare following surgery on the digestive system (principal); K95.09 Other complications of gastric band procedure; I82.629 Acute embolism and thrombosis of deep veins of unspecified upper extremity; Z98.84 Bariatric surgery status
CPT/HCPCS: 99211

== ENCOUNTER → 2019-08-29 | Outpatient (CLI) | payer BC ==
[2019-08-29 13:26] VITALS: BP 159/68; PULSE 64; TEMP 97.8; BMI 28.1
--- NOTE | 2019-08-29 17:10 | P.HPBAR ---
Bariatric H&P - History & Physicial H&P Date: 08/29/19 History & Physicial: Visit/CC: lap band wound (dehisence) recheck Patient initial contact: Initial weight: 84.368 kg Initial weight in pounds: 186.00 Height: 5 ft 3 in Initial BMI: 32.9 Last weight: Current weight: 72.121 kg Current weight in pounds: 159.00 Current BMI: 28.1 [place] body weight (based on NIH guidelines): 52.163 kg Excess body weight loss: 38.0% The patient is a 68 year-old F who presents for Bariatric Assessment. Patient presents today for lab band removal follow-up. She has a small chronic wound at her incision. She is currently receiving wound care. Patient states that she still has some mild shortness of breath. She has been unable to ambulate more and more each day. Past Medical History Past Medical History: Cancer, Deep Vein Thrombosis (DVT), Osteoarthritis (OA) Additional Past Medical History / Comment(s): Right breast cancer (had mastectomy and chemotherapy Tamoxifen). Osteoporosis. Stenosis of neck and back. dvt 1988. DVT Left arm secondary to PICC Line placement (May 2019) History of Any Multi-Drug Resistant Organisms: None Reported Past Surgical History: Bariatric Surgery, Orthopedic Surgery Additional Past Surgical History / Comment(s): Lap band placed 2006,. Bilateral knee replacement. Right mastectomy. lap band removal 06/15/2019 Past Anesthesia/Blood Transfusion Reactions: Postoperative Nausea & Vomiting (PONV) Additional Past Anesthesia/Blood Transfusion Reaction / Comm: has had a reaction to blood transfusion, hives (needed benadryl) Smoking Status: Never smoker - Past Family History Son(s) Family Medical History: Seizure Disorder Additional Family Medical History / Comment(s): tubs placed in ears times 4, torn rotator cuff right shoulder, Surgical - Exam Vital Signs Temp Pulse BP 97.8 F 64 159/68 08/29/19 13:12 08/29/19 13:12 08/29/19 13:12 - General well developed, well nourished - Abdomen There is a 3 cm small incisional dehiscence with silver wound dressing. Abdomen: soft, non tender Bariatric Assessment & Plan Plan: Status post removal LAP-BAND. Patient developed a small chronic wound. She'll continue local wound care. She'll follow-up in one month. Bariatric Checklist Checklist: Plan: Checklist: EGD: 1. Hiatal hernia: 2. H. Pylori: HgbA1c: Vitamin D: Smoking: Never smoker Primary care physician referral: [address] [place]. [address] Psychiatry clearance: Cardiology clearance: Sleep study: Diet journal: VTE risk score: VTE risk level: Rehab needs at discharge:
== END | disposition home or self-care (01) ==
LOC: BARWHC3 12:51
PROVIDERS: ATTEND Surgery
DX: Z46.51 Encounter for fitting and adjustment of gastric lap band (principal); T81.89XA Other complications of procedures, not elsewhere classified, initial encounter; Z96.653 Presence of artificial knee joint, bilateral; Z90.11 Acquired absence of right breast and nipple
CPT/HCPCS: 99211